=== PATIENT | female | born 1935 ===

== ENCOUNTER 2021-01-26 15:16 | Inpatient (IN) | payer MEDICARE ==
--- NOTE | 2021-01-26 17:35 | Emergency Department Report ---
ED General Adult HPI - General Chief complaint: Weakness Stated complaint: FAILURE TO THRIVE Time Seen by Provider: 01/26/21 17:11 Source: EMS Mode of arrival: Stretcher Limitations: Physical Limitation - History of Present Illness Initial comments: Patient presents to the emergency department via EMS from [facility] for evaluation for failure to thrive. Patient is nonverbal and is not able to provide any history. Per EMS they were called because the patient is no longer taking food or water p.o. They state that the family wanted the patient evaluated at the hospital. -: unknown Consistency: constant Improves with: none Worsens with: none Associated Symptoms: other (Not able to obtain due to the patient's status) Treatments Prior to Arrival: none - Related Data Allergies Allergy/AdvReac Type Severity Reaction Status Date / Time No Known Allergies Allergy Verified 01/26/21 16:32 ED Review of Systems ROS: Stated complaint: FAILURE TO THRIVE Other details as noted in HPI Comment: Unobtainable due to pts medical conditions ED Past Medical Hx - Past Medical History Previous Medical History?: Yes Additional medical history: failure to thrive - Social History Smoking Status: Never Smoker Substance Use Type: None ED Physical Exam - General Limitations: Physical Limitation General appearance: obtunded - Head Head exam: Present: atraumatic, normocephalic - Eye Eye exam: Absent: scleral icterus - ENT ENT exam: Present: mucous membranes dry - Neck Neck exam: Present: normal inspection - Respiratory Respiratory exam: Present: normal lung sounds bilaterally. Absent: respiratory distress - Cardiovascular Cardiovascular Exam: Present: regular rate, normal rhythm - GI/Abdominal GI/Abdominal exam: Present: soft. Absent: distended - Extremities Exam Extremities exam: Present: other (Contractures to the bilateral lower extremities) - Back Exam Back exam: Absent: paraspinal tenderness, vertebral tenderness, rash noted - Neurological Exam Neurological exam: Present: altered, other (Not able to completely assess due to the patient's condition) - Psychiatric Psychiatric exam: Present: other (Not able to assess due to the patient's condition) - Skin Skin exam: Present: other (Patient has 2 stage IV ulcers with one being to the sacrum and other located to the medial aspect of the right foot the latter decubitus ulcer has purulent drainage) ED Course Vital Signs 01/26/21 01/26/21 16:32 16:40 Temperature 98 F Pulse Rate 57 L Respiratory 16 Rate Blood Pressure 115/57 O2 Sat by Pulse 97 95 Oximetry ED Medical Decision Making - Radiology Data Radiology results: report reviewed - Medical Decision Making Spoke to the patient's physician who is Dr. Rafael Frazier MD. Patient was discussed in detail plans will be to obtain labs and have the patient admitted. The admitting physician will follow labs upon their completion and return. Patient has bilateral pneumonia on x-ray with bony lesions bilaterally to the humerus IV antibiotics initiated Covid test ordered patient will be admitted Critical care attestation.: If time is entered above; I have spent that time in minutes in the direct care of this critically ill patient, excluding procedure time. ED Disposition Clinical Impression: Weakness, Bilateral pneumonia, Lytic bone lesions on xray Disposition: ADMITTED INPATIENT Is pt being admited?: Yes Does the pt Need Aspirin: No Condition: Fair Instructions: Bacterial Pneumonia (ED)
--- NOTE | 2021-01-26 17:55 | XRay Report ---
CHEST 1 VIEW, 01/26/2021 5:29 PM CLINICAL INFORMATION/INDICATION: Cough COMPARISON: None. FINDINGS: SUPPORT DEVICES: None. HEART: The cardiac silhouette is normal in size. LUNGS/PLEURA: There are patchy bilateral pulmonary opacities. ADDITIONAL FINDINGS: Evaluation of bony structures demonstrates mixed lytic and sclerotic lesions wit hin the bilateral humeral heads, left greater than right. IMPRESSION: 1. Patchy bilateral pulmonary opacities which could suggest a developing atypical infectious process. 2. Mixed lytic and sclerotic lesion of both humeral head suggesting a neoplastic process. Multiple my eloma could have this appearance. Signer Name: Kristy Glover MD Signed: 01/26/2021 5:51 PM Workstation Name: [id number]
--- NOTE | 2021-01-26 18:07 | History and Physical Report ---
History of Present Illness Chief complaint: She is getting sick History of present illness: 85 YO Female [facility] Resident at [facility] with Vascular Dementia, Cerebral Atherosclerosis, Debility, Severe Malnutrition, Sacral Decubitus Ulcer present on admission presents to ED for evaluation. Patient has diminished cognition at the time my evaluation and is unable to provide history. Patient history provided by EMS staff, ED staff, [facility] facility staff, as well as patient daughter who was made available by telephone for interview. As per daughter she was notified by [facility] facility staff today and informed that the patient "was getting sick". The patient has experienced decreased responsiveness as well as increased weakness over the past 1 week with acute worsening of symptoms over the past 1 day. EMS was notified and upon arrival the patient was found to be in distress and was subsequently transported to [facility] for further care and evaluation of the aforementioned symptoms. The patient was seen and evaluated in the emergency department. All lab and imaging studies reviewed. Patient was found to have a pulse oximetry of 85% on room air which is consistent with acute hypoxemic respiratory failure. A chest x-ray revealed bilateral pneumonia. The patient was also found to have sepsis, acute kidney injury, as well as severe hypernatremia. The patient was admitted to medical floor and initiated on sepsis protocol, pneumonia protocol, as well as coronavirus protocol. No further history is obtainable. The patient has diminished cognition but has a positive gag reflex and is able to protect her airway without difficulty the time my evaluation. Advanced care planning conducted in ED. Past History Past Medical History: other (See HPI) Past Surgical History: No surgical history, Other (Reviewed) Social history: single. denies: smoking, alcohol abuse Family history: hypertension Medications and Allergies Allergies Allergy/AdvReac Type Severity Reaction Status Date / Time No Known Allergies Allergy Verified 01/26/21 16:32 Review of Systems ROS unobtainable: due to mental status Exam - Constitutional Vitals: Temp Pulse Resp BP Pulse Ox 98 F 57 L 16 115/57 95 01/26/21 16:32 01/26/21 16:32 01/26/21 16:32 01/26/21 16:32 01/26/21 16:40 General appearance: Present: mild distress - EENT ENT: hearing decreased, other - Neck Neck: Present: supple, normal ROM - Respiratory Respiratory effort: labored Respiratory: bilateral: diminished, rhonchi - Cardiovascular Rhythm: regular Heart Sounds: Present: S1 & S2 - Extremities Extremities: pulses symmetrical, No edema Extremity abnormal: ulceration Peripheral Pulses: abnormal (Capillary refill greater than 3.5 seconds) - Abdominal General gastrointestinal: Present: soft, non-tender, non-distended, normal bowel sounds Female genitourinary: Present: normal - Integumentary Integumentary: Present: clear, dry, clammy, decreased turgor - Musculoskeletal Musculoskeletal: generalized weakness - Psychiatric Psychiatric: no appropriate mood/affect, no intact judgment & insight, no memory intact - Neurologic Neurologic: CNII-XII intact, moves all extremities, no gait normal Results - Labs CBC & Chem 7: 01/26/21 17:55 01/26/21 17:55 Assessment and Plan - Patient Problems (1) Sepsis Current Visit: Yes Status: Acute Plan to address problem: Sepsis protocol: IV antibiotic therapy, IV fluid resuscitation therapy, serial lactic acid level, monitor urine output every shift, monitor fluid balance, maintain mean arterial pressure greater than equal 65, blood culture. (2) Suspected 2019 novel coronavirus infection Current Visit: Yes Status: Acute Plan to address problem: Coronavirus protocol: IV steroid therapy, IV antibiotic therapy, supplemental oxygen, pulse oximetry, contact precautions, isolation precautions, nebulizer therapy, vitamin C therapy, vitamin D therapy, zinc therapy, (3) Severe malnutrition Current Visit: Yes Status: Acute Plan to address problem: Dietary supplementation, supportive care. (4) Hypernatremia Current Visit: Yes Status: Acute Plan to address problem: IV fluid resuscitation therapy, BMP, repeat BMP in a.m. (5) Acute kidney injury (SUDHIR) with acute tubular necrosis (ATN) Current Visit: Yes Status: Acute Plan to address problem: BMP, IV fluid resuscitation therapy, repeat BMP in a.m. to monitor serum creatinine as well as GFR (6) Multiple myeloma Current Visit: Yes Status: Acute Qualifiers: Multiple myeloma remission status: unspecified Qualified Code(s): C90.00 - Multiple myeloma not having achieved remission Plan to address problem: Supportive care, lytic bone lesions on x-ray. Patient family informed. No intervention desired. (7) Bilateral pneumonia Current Visit: Yes Status: Acute Plan to address problem: Pneumonia protocol: Chest x-ray, CBC, CMP, supplemental oxygen, pulse oximetry, nebulizer therapy, blood culture. IV antibiotic therapy. (8) DVT prophylaxis Current Visit: Yes Status: Acute Plan to address problem: SCD to bilateral lower extremities while in bed (9) Advance care planning Current Visit: Yes Status: Acute Plan to address problem: Disease education conducted, care plan discussed, diagnosis discussed, poor prognosis discussed. Patient daughter Emy Chambers informed of patient prognosis. Patient is DNR. Patient daughter elects to have medical therapy at this time. Patient daughter made aware that patient may not tolerate therapy and current therapy may hasten patient demise. Patient daughter acknowledges understanding instructions patient daughter acknowledges understanding and agreement with current care plan. +30 minutes.
[2021-01-26] MEDS ORDERED: ACETAMINOPHEN 325 MG TAB PO PRN ×2 (18:10)
[2021-01-26] MEDS ORDERED: HYDROmorphone 1 MG/1 ML INJ IV PRN ×2 (18:10)
[2021-01-26] MEDS ORDERED: ALBUTEROL 2.5 MG/3 ML NEBU IH PRN (18:10)
[2021-01-26] MEDS ORDERED: ONDANSETRON 4 MG/2 ML INJ IV PRN (18:10)
[2021-01-26] MEDS ORDERED: SODIUM CHLORIDE 0.9% 1000 ML IV SOLN IV ONE (18:10)
[2021-01-26] MEDS ORDERED: oxyCODONE /ACETAMINOPHEN 5-325MG TAB PO PRN (18:10)
[2021-01-26 18:27] LABS: Albumin 2.6 g/dL (3.9-5); Calcium 7.9 mg/dL (8.4-10.2)
[2021-01-26 19:32] LABS: Hematocrit 24.3 % (30.3-42.9); Hemoglobin 7.9 gm/dl (10.1-14.3); Mean Corpuscular HGB Conc 33 % (30-34); Mean Corpuscular Volume 100 fl (79-97); Platelet Count 137 K/mm3 (140-440); Red Blood Count 2.44 M/mm3 (3.65-5.03)
[2021-01-26 19:34] LABS: Red Cell Distribution Width 24.4 % (13.2-15.2)
[2021-01-26] MEDS ORDERED: SODIUM CHLORIDE 0.9% 1000 ML 1,000 ML ONE (21:04)
[2021-01-26] MEDS: cefTRIAXone/NS 2 GM/100 ML 2 GM/100 ML BAG IV SCH (21:06)
[2021-01-26 21:53] LABS: Myelocytes # (Manual) 0.2 K/mm3; Total Cells Counted 100
[2021-01-26 21:54] LABS: Anisocytosis 2+; Schistocytes Rare; Tear Drop Cells Few
[2021-01-26 21:55] LABS: Platelet Estimate Consistent w Auto
[2021-01-26] MEDS: methylPREDNISolone Sod Succinate 40 MG/1 ML INJ IV SCH (23:05)
[2021-01-26] MEDS: AZITHROMYCIN/NS 500 MG/250 ML 500 MG/250 ML BAG IV SCH (23:06)
[2021-01-26] MEDS: ASCORBIC ACID 500 MG TAB PO SCH (23:16)
[2021-01-26] MEDS: ZINC SULFATE 220 MG CAP PO SCH (23:16)
[2021-01-27] MEDS: methylPREDNISolone Sod Succinate 40 MG/1 ML INJ IV SCH ×4 (05:16→23:16)
--- NOTE | 2021-01-27 09:19 | Progress Note ---
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 Patient has diminished cognition at the time my evaluation and is unable to provide history. Patient history provided by EMS staff, ED staff, assisted facility staff, as well as patient daughter who was made available by telephone for interview. As per daughter she was notified by assisted facility staff today and informed that the patient "was getting sick". The patient has experienced decreased responsiveness as well as increased weakness over the past 1 week with acute worsening of symptoms over the past 1 day. EMS was notified and upon arrival the patient was found to be in distress and was subsequently transported to [facility] for further care and evaluation of the aforementioned symptoms. The patient was seen and evaluated in the emergency department. All lab and imaging studies reviewed. Patient was found to have a pulse oximetry of 85% on room air which is consistent with acute hypoxemic respiratory failure. A chest x-ray revealed bilateral pneumonia. The patient was also found to have sepsis, acute kidney injury, as well as severe hypernatremia. The patient was admitted to medical floor and initiated on sepsis protocol, pneumonia protocol, as well as coronavirus protocol. No further history is obtainable. The patient has diminished cognition but has a positive gag reflex and is able to protect her airway without difficulty the time my evaluation. Advanced care planning conducted in ED. 01/27: Patient seen and examined, very lethargic, and appears deconditioned and dry. - ID and Nephrology consult - Gentle hydration while awaiting COVID testing. - Monitor Platelet level - Follow cultures. - Q2H turns (1) Sepsis Current Visit: Yes Status: Acute Plan to address problem: Sepsis protocol: IV antibiotic therapy, IV fluid resuscitation therapy, serial lactic acid level, monitor urine output every shift, monitor fluid balance, maintain mean arterial pressure greater than equal 65, blood culture. (2) Suspected 2019 novel coronavirus infection Current Visit: Yes Status: Acute Plan to address problem: Coronavirus protocol: IV steroid therapy, IV antibiotic therapy, supplemental oxygen, pulse oximetry, contact precautions, isolation precautions, nebulizer therapy, vitamin C therapy, vitamin D therapy, zinc therapy, (3) Severe malnutrition Current Visit: Yes Status: Acute Plan to address problem: Dietary supplementation, supportive care. (4) Hypernatremia Current Visit: Yes Status: Acute Plan to address problem: IV fluid resuscitation therapy, BMP, repeat BMP in a.m. (5) Acute kidney injury (SUDHIR) with acute tubular necrosis (ATN) Current Visit: Yes Status: Acute Plan to address problem: BMP, IV fluid resuscitation therapy, repeat BMP in a.m. to monitor serum creatinine as well as GFR (6) Multiple myeloma Current Visit: Yes Status: Acute Qualifiers: Multiple myeloma remission status: unspecified Qualified Code(s): C90.00 - Multiple myeloma not having achieved remission Plan to address problem: Supportive care, lytic bone lesions on x-ray. Patient family informed. No intervention desired. (7) Bilateral pneumonia Current Visit: Yes Status: Acute Plan to address problem: Pneumonia protocol: Chest x-ray, CBC, CMP, supplemental oxygen, pulse oximetry, nebulizer therapy, blood culture. IV antibiotic therapy. (8) Multiple Pressure ulcer, Sacral Decubitus Ulcer (9) Anemia (10)Lactic Acidosis (11)Hyperkalemia (12) Advance care planning Current Visit: Yes Status: Acute Plan to address problem: Disease education conducted, care plan discussed, diagnosis discussed, poor prognosis discussed. Patient daughter Emy Chambers informed of patient p janelle. Patient is DNR. Patient daughter elects to have medical therapy at this time. Patient daughter made aware that patient may not tolerate therapy and current therapy may hasten patient demise. Patient daughter acknowledges understanding instructions patient daughter acknowledges understanding and agreement with current care plan. +30 minutes. (13)DVT prophylaxis Current Visit: Yes Status: Acute Plan to address problem: SCD to bilateral lower extremities while in bed History Interval history: Patient seen and examined, very lethargic, weak, contracted, and with dry mucus membrane. Hospitalist Physical - Physical exam Narrative exam: General appearance: Present: mild distress, contracted - EENT ENT: hearing decreased, other, dry mucus membrane - Neck Neck: Present: supple, normal ROM - Respiratory Respiratory effort: labored Respiratory: bilateral: diminished, rhonchi - Cardiovascular Rhythm: regular Heart Sounds: Present: S1 & S2 - Extremities Extremities: pulses symmetrical, No edema Extremity abnormal: ulceration Peripheral Pulses: abnormal (Capillary refill greater than 3.5 seconds) - Abdominal General gastrointestinal: Present: soft, non-tender, non-distended, normal bowel sounds Female genitourinary: Present: normal - Integumentary Integumentary: Present: multiple ecchymotic injury, clear, dry, clammy, decreased turgor - Musculoskeletal Musculoskeletal: generalized weakness - Psychiatric Psychiatric: no appropriate mood/affect, no intact judgment & insight, no memory intact - Neurologic Neurologic: CNII-XII intact, moves all extremities, no gait normal - Constitutional Vitals: Temp Pulse Resp BP Pulse Ox 97.3 F L 62 16 104/58 99 01/27/21 05:05 01/27/21 05:05 01/27/21 05:05 01/27/21 05:05 01/27/21 05:05 General appearance: Present: mild distress Results - Labs CBC & Chem 7: 01/26/21 17:55 01/26/21 17:55 Labs: Laboratory Last Values WBC 17.2 K/mm3 (4.5-11.0) H 01/26/21 17:55 RBC 2.44 M/mm3 (3.65-5.03) L 01/26/21 17:55 Hgb 7.9 gm/dl (10.1-14.3) L 01/26/21 17:55 Hct 24.3 % (30.3-42.9) L 01/26/21 17:55 MCV 100 fl (79-97) H 01/26/21 17:55 MCH 33 pg (28-32) H 01/26/21 17:55 MCHC 33 % (30-34) 01/26/21 17:55 RDW 24.4 % (13.2-15.2) H 01/26/21 17:55 Plt Count 137 K/mm3 (140-440) L 01/26/21 17:55 Add Manual Diff Complete 01/26/21 17:55 Total Counted 100 01/26/21 17:55 Seg Neuts % (Manual) 75.0 % (40.0-70.0) H 01/26/21 17:55 Lymphocytes % (Manual) 19.0 % (13.4-35.0) 01/26/21 17:55 Monocytes % (Manual) 2.0 % (0.0-7.3) 01/26/21 17:55 Eosinophils % (Manual) 2.0 % (0.0-4.3) 01/26/21 17:55 Metamyelocytes % 1.0 % 01/26/21 17:55 Myelocytes % 1.0 % 01/26/21 17:55 Nucleated RBC % 2.0 % (0.0-0.9) H 01/26/21 17:55 Seg Neutrophils # Man 12.9 K/mm3 (1.8-7.7) H 01/26/21 17:55 Band Neutrophils # 0.0 K/mm3 01/26/21 17:55 Lymphocytes # (Manual) 3.3 K/mm3 (1.2-5.4) 01/26/21 17:55 Abs React Lymphs (Man) 0.0 K/mm3 01/26/21 17:55 Monocytes # (Manual) 0.3 K/mm3 (0.0-0.8) 01/26/21 17:55 Eosinophils # (Manual) 0.3 K/mm3 (0.0-0.4) 01/26/21 17:55 Basophils # (Manual) 0.0 K/mm3 (0.0-0.1) 01/26/21 17:55 Metamyelocytes # 0.2 K/mm3 01/26/21 17:55 Myelocytes # 0.2 K/mm3 01/26/21 17:55 Promyelocytes # 0.0 K/mm3 01/26/21 17:55 Blast Cells # 0.0 K/mm3 01/26/21 17:55 WBC Morphology Not Reportable 01/26/21 17:55 Hypersegmented Neuts Not Reportable 01/26/21 17:55 Hyposegmented Neuts Not Reportable 01/26/21 17:55 Hypogranular Neuts Not Reportable 01/26/21 17:55 Smudge Cells Not Reportable 01/26/21 17:55 Toxic Granulation Not Reportable 01/26/21 17:55 Toxic Vacuolation Not Reportable 01/26/21 17:55 Dohle Bodies Not Reportable 01/26/21 17:55 Pelger-Huet Anomaly Not Reportable 01/26/21 17:55 Francisco J Rods Not Reportable 01/26/21 17:55 Platelet Estimate Consistent w auto 01/26/21 17:55 Clumped Platelets Not Reportable 01/26/21 17:55 Plt Clumps, EDTA Not Reportable 01/26/21 17:55 Large Platelets Not Reportable 01/26/21 17:55 Giant Platelets Not Reportable 01/26/21 17:55 Platelet Satelliting Not Reportable 01/26/21 17:55 Plt Morphology Comment Not Reportable 01/26/21 17:55 RBC Morphology Not Reportable 01/26/21 17:55 Dimorphic RBCs Not Reportable 01/26/21 17:55 Polychromasia Not Reportable 01/26/21 17:55 Hypochromasia Not Reportable 01/26/21 17:55 Poikilocytosis Not Reportable 01/26/21 17:55 Anisocytosis 2+ 01/26/21 17:55 Microcytosis Not Reportable 01/26/21 17:55 Macrocytosis Not Reportable 01/26/21 17:55 Spherocytes Not Reportable 01/26/21 17:55 Pappenheimer Bodies Not Reportable 01/26/21 17:55 Sickle Cells Not Reportable 01/26/21 17:55 Target Cells Not Reportable 01/26/21 17:55 Tear Drop Cells Few 01/26/21 17:55 Ovalocytes Not Reportable 01/26/21 17:55 Helmet Cells Not Reportable 01/26/21 17:55 [place] Bodies Not Reportable 01/26/21 17:55 [place] Rings Not Reportable 01/26/21 17:55 [place] Cells Not Reportable 01/26/21 17:55 Bite Cells Not Reportable 01/26/21 17:55 Crenated Cell Not Reportable 01/26/21 17:55 Elliptocytes Not Reportable 01/26/21 17:55 Acanthocytes (Spur) Not Reportable 01/26/21 17:55 Rouleaux Not Reportable 01/26/21 17:55 Hemoglobin C Crystals Not Reportable 01/26/21 17:55 Schistocytes Rare 01/26/21 17:55 Malaria parasites Not Reportable 01/26/21 17:55 Garry Bodies Not Reportable 01/26/21 17:55 Hem Pathologist Commnt No 01/26/21 17:55 Sodium 152 mmol/L (137-145) H 01/26/21 17:55 Potassium 5.8 mmol/L (3.6-5.0) H 01/26/21 17:55 Chloride 121.5 mmol/L (98-107) H 01/26/21 17:55 Carbon Dioxide 24 mmol/L (22-30) 01/26/21 17:55 Anion Gap 12 mmol/L 01/26/21 17:55 BUN 38 mg/dL (7-17) H 01/26/21 17:55 Creatinine 1.5 mg/dL (0.6-1.2) H 01/26/21 17:55 Estimated GFR 33 ml/min 01/26/21 17:55 BUN/Creatinine Ratio 25 % 01/26/21 17:55 Glucose 58 mg/dL (65-100) L 01/26/21 17:55 Lactic Acid 1.20 mmol/L (0.7-2.0) 01/26/21 21:17 Calcium 7.9 mg/dL (8.4-10.2) L 01/26/21 17:55 Total Bilirubin 0.40 mg/dL (0.1-1.2) 01/26/21 17:55 AST 18 units/L (5-40) 01/26/21 17:55 ALT 14 units/L (7-56) 01/26/21 17:55 Alkaline Phosphatase 175 units/L (35-129) H 01/26/21 17:55 Total Protein 5.6 g/dL (6.3-8.2) L 01/26/21 17:55 Albumin 2.6 g/dL (3.9-5) L 01/26/21 17:55 Albumin/Globulin Ratio 0.9 % 01/26/21 17:55 Blood Type O POSITIVE 01/26/21 19:56 Antibody Screen Negative 01/26/21 19:56 Microbiology: Microbiology 01/26/21 18:28 Peripheral/Venous Blood Culture - Preliminary Culture in Progress 01/26/21 18:20 Peripheral/Venous Blood Culture - Preliminary Culture in Progress Sorto/IV: Voiding Method Incontinent Active Medications - Current Medications Current Medications: Generic Name Dose Route Start Last Admin Trade Name Freq PRN Reason Stop Dose Admin Acetaminophen 650 mg 01/26/21 18:10 Acetaminophen 325 Mg Tab PO Q4H PRN Pain MILD(1-3)/Fever >100.5/LUCAS Albuterol 2.5 mg 01/26/21 18:10 Albuterol 2.5 Mg/3 Ml Nebu IH Q4HRT PRN Shortness Of Breath Ascorbic Acid 500 mg 01/26/21 22:00 01/26/21 23:16 Ascorbic Acid 500 Mg Tab PO Not Given BID VINOD Cholecalciferol 1,000 unit 01/27/21 10:00 Cholecalciferol (Vit D3) 1000 Unit (25 Mcg) Tab PO QDAY VINOD Hydromorphone HCl 0.25 mg 01/26/21 18:10 Hydromorphone 1 Mg/1 Ml Inj IV Q4H PRN Pain, Moderate (4-6) Hydromorphone HCl 0.5 mg 01/26/21 18:10 Hydromorphone 1 Mg/1 Ml Inj IV Q24H PRN Pain , Severe (7-10) Ceftriaxone Sodium 2 gm in 100 mls @ 200 mls/hr 01/26/21 20:00 01/26/21 21:06 Rocephin/Ns 2 Gm/100 Ml IV 01/30/21 20:29 200 mls/hr Q24H VINOD Administration Protocol Azithromycin 500 mg in 250 mls @ 250 mls/hr 01/26/21 20:00 01/26/21 23:06 Zithromax/Ns IV 01/30/21 20:59 250 mls/hr Q24H VINOD Administration Protocol Methylprednisolone Sodium Succinate 40 mg 01/26/21 22:00 01/27/21 05:16 Methylprednisolone Sod Succinate 40 Mg/1 Ml Inj IV 40 mg Q8H VINOD Administration Ondansetron HCl 4 mg 01/26/21 18:10 Ondansetron 4 Mg/2 Ml Inj IV Q8H PRN Nausea And Vomiting Oxycodone/Acetaminophen 1 tab 01/26/21 18:10 Oxycodone /Acetaminophen 5-325mg Tab PO Q12H PRN Pain, Moderate (4-6) Sodium Chloride 10 ml 01/26/21 22:00 01/26/21 23:18 Sodium Chloride 0.9% 10 Ml Flush Syringe IV 10 ml BID VINOD Administration Sodium Chloride 10 ml 01/26/21 18:10 Sodium Chloride 0.9% 10 Ml Flush Syringe IV PRN PRN LINE FLUSH Zinc Sulfate 220 mg 01/26/21 22:00 01/26/21 23:16 Zinc Sulfate 220 Mg Cap PO Not Given BID VINOD
[2021-01-27] MEDS: ASCORBIC ACID 500 MG TAB PO SCH ×2 (10:00→23:16)
[2021-01-27] MEDS: CHOLECALCIFEROL (VIT D3) 1000 UNIT (25 mcg) TAB PO SCH (10:00)
[2021-01-27] MEDS ORDERED: SODIUM BICARBONATE 325 MG TAB FEEDTUBE PRN (11:00)
[2021-01-27] MEDS ORDERED: LIPASE 10,500/PROTEASE 25,000/AMYLASE 43,750 (UNITS) DR CAP FEEDTUBE PRN (11:00)
[2021-01-27] MEDS ORDERED: SIMPLE SYRUP 15 ML FEEDTUBE PRN (11:00)
[2021-01-27] MEDS ORDERED: SODIUM POLYSTYRENE 15 GM/60 ML ORAL LIQD PO ONE (14:22)
--- NOTE | 2021-01-27 14:25 | Consultation ---
History of Present Illness - Reason for Consult Consult date: 01/27/21 acute renal failure, hypernatremia - History of Present Illness Mrs. Elias is an 85yo with vascular dementia, multiple myeloma who presented from SNF due to failure to thrive. Per EMS they were called because the patient was no longer taking food or water p.o. Family wanted the patient evaluated at the hospital Over the past week, patient reportedly was noted to become less responsive w/ increased weakness. In the ED, patient was noted to have SaO2 85%. CXR notable for bilateral infiltrates concerning for PNA. Labs notabe for WBC 17.2, K 5.8, Creatinine 1.5mg.dL. Nephrology consultation requested for management of SUDHIR, hyperkalemia Past History Past Medical History: other (See HPI) Past Surgical History: No surgical history, Other (Reviewed) Social history: single. denies: smoking, alcohol abuse Family history: hypertension Medications and Allergies Allergies Allergy/AdvReac Type Severity Reaction Status Date / Time No Known Allergies Allergy Verified 01/26/21 16:32 Active Meds: Active Medications Acetaminophen (Acetaminophen 325 Mg Tab) 650 mg PO Q4H PRN PRN Reason: Pain MILD(1-3)/Fever >100.5/LUCAS Albuterol (Albuterol 2.5 Mg/3 Ml Nebu) 2.5 mg IH Q4HRT PRN PRN Reason: Shortness Of Breath Lipase/Protease/Amylase (Lipase 10,500/Protease 25,000/Amylase 43,750 (Units) Dr Joseph) 1 each FEEDTUBE PRN PRN PRN Reason: For Clogged Feeding Tube Ascorbic Acid (Ascorbic Acid 500 Mg Tab) 500 mg PO BID [facility] Last Admin: 01/26/21 23:16 Dose: Not Given Documented by: Cholecalciferol (Cholecalciferol (Vit D3) 1000 Unit (25 Mcg) Tab) 1,000 unit PO QDAY [facility] Hydromorphone HCl (Hydromorphone 1 Mg/1 Ml Inj) 0.25 mg IV Q4H PRN PRN Reason: Pain, Moderate (4-6) Hydromorphone HCl (Hydromorphone 1 Mg/1 Ml Inj) 0.5 mg IV Q24H PRN PRN Reason: Pain , Severe (7-10) Ceftriaxone Sodium (Rocephin/Ns 2 Gm/100 Ml) 2 gm in 100 mls @ 200 mls/hr IV Q24H [facility]; Protocol Stop: 01/30/21 20:29 Last Admin: 01/26/21 21:06 Dose: 200 mls/hr Documented by: Azithromycin (Zithromax/Ns) 500 mg in 250 mls @ 250 mls/hr IV Q24H [facility]; Protocol Stop: 01/30/21 20:59 Last Admin: 01/26/21 23:06 Dose: 250 mls/hr Documented by: Sodium Chloride (Nacl 0.45% 1000 Ml) 1,000 mls @ 75 mls/hr IV DIRECT [facility] Methylprednisolone Sodium Succinate (Methylprednisolone Sod Succinate 40 Mg/1 Ml Inj) 40 mg IV Q8H [facility] Last Admin: 01/27/21 12:35 Dose: 40 mg Documented by: Ondansetron HCl (Ondansetron 4 Mg/2 Ml Inj) 4 mg IV Q8H PRN PRN Reason: Nausea And Vomiting Oxycodone/Acetaminophen (Oxycodone /Acetaminophen 5-325mg Tab) 1 tab PO Q12H PRN PRN Reason: Pain, Moderate (4-6) Simple Syrup (Simple Syrup 15 Ml) 15 ml FEEDTUBE PRN PRN PRN Reason: Hypoglycemia Simple Syrup (Simple Syrup 15 Ml) 30 ml FEEDTUBE PRN PRN PRN Reason: Hypoglycemia Sodium Bicarbonate (Sodium Bicarbonate 325 Mg Tab) 325 mg FEEDTUBE PRN PRN PRN Reason: For Clogged Feeding Tube Sodium Chloride (Sodium Chloride 0.9% 10 Ml Flush Syringe) 10 ml IV BID [facility] Last Admin: 01/27/21 12:36 Dose: 10 ml Documented by: Sodium Chloride (Sodium Chloride 0.9% 10 Ml Flush Syringe) 10 ml IV PRN PRN PRN Reason: LINE FLUSH Sodium Polystyrene Sulfonate (Sodium Polystyrene 15 Gm/60 Ml Oral Liqd) 30 gm PO ONCE ONE Stop: 01/27/21 14:23 Zinc Sulfate (Zinc Sulfate 220 Mg Cap) 220 mg PO BID [facility] Last Admin: 01/26/21 23:16 Dose: Not Given Documented by: Review of Systems All systems: negative Exam - Vital Signs Vital signs: Vital Signs Temp Pulse Resp BP Pulse Ox 98 F 57 L 16 115/57 97 01/26/21 16:32 01/26/21 16:32 01/26/21 16:32 01/26/21 16:32 01/26/21 16:32 - General Appearance General appearance: frail EENT: ATNC Respiratory: Clear to Ascultation Heart: regular, S1S2 Gastrointestinal: Present: normal. Absent: tenderness, distended Integumentary: warm and dry Neurologic: other (nonverbal) Results - Lab Results 01/27/21 18:10 01/27/21 18:10 Most recent lab results Calcium 7.9 mg/dL (8.4-10.2) L 01/26/21 17:55 Assessment and Plan Impression: * Acute kidney injury secondary to prerenal azotemia due to dehydration * Sepsis * Hyperkalemia * Hypernatremia * Decubitus ulcer * Multiple myeloma Plan: * STAT BMP ordered * Medical management of hyperkalemia - kayexelate via DHT ordered * Start 1/2 NS 75ml/min * Abx per ID * Dose medications for renal function * Avoid potential nephrotoxins * Strict I/O
[2021-01-27] MEDS ORDERED: SODIUM CHLORIDE 0.45% 1000 ML 1,000 ML IV SCH (15:00)
--- NOTE | 2021-01-27 15:49 | Consultation ---
History of Present Illness - Reason for Consult Consult date: 01/27/21 sepsis - History of Present Illness 85-year-old female with history of dementia, cementation, sacral decubitus ulcer, admitted on 01/26/2021 secondary to a week history of decreased responsiveness and generalized weakness associated with shortness of breath. On arrival, temperature 98, HR 57, RR 18, BP 150/57. Initial WBC 17.2. Hemoglobin 7.9. Platelets 137. Lactate 2.1. K5.8. Creatinine 1.5. Chest x- ray with patchy bilateral airspace disease. Noted lytic and sclerotic lesions in the humeral heads. SARS-CoV-2 PCR negative. Blood culture 01/26/2021 no growth today. Review of Systems: Unable to obtain Past History Past Medical History: other (See HPI) Past Surgical History: No surgical history, Other (Reviewed) Social history: single. denies: smoking, alcohol abuse Family history: hypertension Medications and Allergies Allergies Allergy/AdvReac Type Severity Reaction Status Date / Time No Known Allergies Allergy Verified 01/26/21 16:32 Active Meds: Active Medications Acetaminophen (Acetaminophen 325 Mg Tab) 650 mg PO Q4H PRN PRN Reason: Pain MILD(1-3)/Fever >100.5/LUCAS Albuterol (Albuterol 2.5 Mg/3 Ml Nebu) 2.5 mg IH Q4HRT PRN PRN Reason: Shortness Of Breath Lipase/Protease/Amylase (Lipase 10,500/Protease 25,000/Amylase 43,750 (Units) Dr Joseph) 1 each FEEDTUBE PRN PRN PRN Reason: For Clogged Feeding Tube Ascorbic Acid (Ascorbic Acid 500 Mg Tab) 500 mg PO BID [facility] Last Admin: 01/26/21 23:16 Dose: Not Given Documented by: Cholecalciferol (Cholecalciferol (Vit D3) 1000 Unit (25 Mcg) Tab) 1,000 unit PO QDAY [facility] Hydromorphone HCl (Hydromorphone 1 Mg/1 Ml Inj) 0.25 mg IV Q4H PRN PRN Reason: Pain, Moderate (4-6) Hydromorphone HCl (Hydromorphone 1 Mg/1 Ml Inj) 0.5 mg IV Q24H PRN PRN Reason: Pain , Severe (7-10) Ceftriaxone Sodium (Rocephin/Ns 2 Gm/100 Ml) 2 gm in 100 mls @ 200 mls/hr IV Q24H [facility]; Protocol Stop: 01/30/21 20:29 Last Admin: 01/26/21 21:06 Dose: 200 mls/hr Documented by: Azithromycin (Zithromax/Ns) 500 mg in 250 mls @ 250 mls/hr IV Q24H [facility]; Protocol Stop: 01/30/21 20:59 Last Admin: 01/26/21 23:06 Dose: 250 mls/hr Documented by: Sodium Chloride (Nacl 0.45% 1000 Ml) 1,000 mls @ 75 mls/hr IV DIRECT [facility] Methylprednisolone Sodium Succinate (Methylprednisolone Sod Succinate 40 Mg/1 Ml Inj) 40 mg IV Q8H [facility] Last Admin: 01/27/21 14:00 Dose: Not Given Documented by: Ondansetron HCl (Ondansetron 4 Mg/2 Ml Inj) 4 mg IV Q8H PRN PRN Reason: Nausea And Vomiting Oxycodone/Acetaminophen (Oxycodone /Acetaminophen 5-325mg Tab) 1 tab PO Q12H PRN PRN Reason: Pain, Moderate (4-6) Simple Syrup (Simple Syrup 15 Ml) 15 ml FEEDTUBE PRN PRN PRN Reason: Hypoglycemia Simple Syrup (Simple Syrup 15 Ml) 30 ml FEEDTUBE PRN PRN PRN Reason: Hypoglycemia Sodium Bicarbonate (Sodium Bicarbonate 325 Mg Tab) 325 mg FEEDTUBE PRN PRN PRN Reason: For Clogged Feeding Tube Sodium Chloride (Sodium Chloride 0.9% 10 Ml Flush Syringe) 10 ml IV BID [facility] Last Admin: 01/27/21 12:36 Dose: 10 ml Documented by: Sodium Chloride (Sodium Chloride 0.9% 10 Ml Flush Syringe) 10 ml IV PRN PRN PRN Reason: LINE FLUSH Zinc Sulfate (Zinc Sulfate 220 Mg Cap) 220 mg PO BID [facility] Last Admin: 01/26/21 23:16 Dose: Not Given Documented by: Physical Examination - Physical Exam Narrative exam: Patient was on isolation to rule out COVID-19 by the time of encounter - Constitutional Vitals: Vital Signs Temp Pulse Resp BP Pulse Ox 97.3 F L 62 16 104/58 93 01/27/21 05:05 01/27/21 05:05 01/27/21 05:05 01/27/21 05:05 01/27/21 10:00 Temperature -Last 24 Hours Temperature 97.3 F Temperature 97.2 F Temperature 98 F Temperature 98 F Results - Labs CBC & Chem 7: 01/27/21 18:10 01/26/21 17:55 Labs: Abnormal lab results 01/26/21 01/26/21 01/26/21 Range/Units 17:55 17:55 17:55 WBC 17.2 H (4.5-11.0) K/mm3 RBC 2.44 L (3.65-5.03) M/mm3 Hgb 7.9 L (10.1-14.3) gm/dl Hct 24.3 L (30.3-42.9) % MCV 100 H (79-97) fl MCH 33 H (28-32) pg RDW 24.4 H (13.2-15.2) % Plt Count 137 L (140-440) K/mm3 Seg Neuts % (Manual) 75.0 H (40.0-70.0) % Nucleated RBC % 2.0 H (0.0-0.9) % Seg Neutrophils # Man 12.9 H (1.8-7.7) K/mm3 Sodium 152 H (137-145) mmol/L Potassium 5.8 H (3.6-5.0) mmol/L Chloride 121.5 H (98-107) mmol/L BUN 38 H (7-17) mg/dL Creatinine 1.5 H (0.6-1.2) mg/dL Glucose 58 L (65-100) mg/dL Lactic Acid 2.10 H* (0.7-2.0) mmol/L Calcium 7.9 L (8.4-10.2) mg/dL Alkaline Phosphatase 175 H (35-129) units/L Total Protein 5.6 L (6.3-8.2) g/dL Albumin 2.6 L (3.9-5) g/dL Assessment and Plan Cultures: Blood cultures no growth today Assessment: 85-year-old female with history of dementia, cementation, sacral decubitus ulcer, admitted on 01/26/2021 secondary to a week history of decreased responsiveness and generalized weakness associated with shortness of breath: #Sepsis: Present on admission with leukocytosis, elevated lactate, elevated creatinine; likely due to bilateral pneumonia. #Bilateral pneumonia: SARS-CoV-2 PCR negative. #SUDHIR: Renally adjust antibiotics. #Bone lesions: ?MM Recommendations: Continue ceftriaxone and azithromycin Follow blood cultures Will follow. Ariana López MD Infectious Diseases Director Biostatistics [facility] M [phone] O [phone]
--- NOTE | 2021-01-27 16:59 | XRay Report ---
ABDOMEN 1 VIEW 01/27/2021 3:24 PM INDICATION / CLINICAL INFORMATION: dobhoff placement. COMPARISON: Chest radiograph dated 01/26/2021 FINDINGS: TUBES / LINES: Feeding tube is in the right lung. BOWEL GAS PATTERN: No significant abnormality. FREE AIR / EXTRALUMINAL GAS: None. ADDITIONAL FINDINGS: There is a mass lesion in the right lung. There is extensive sclerotic change no mellissa in the imaged skeleton. IMPRESSION: 1. Feeding tube is in the right lung. Note: Note from technologist indicated that the nurse was present at the time the radiograph was obta ined. Note indicates the tube was removed. Signer Name: Andrés Craft MD Signed: 01/27/2021 4:54 PM Workstation Name: [id number]
[2021-01-27] MEDS ORDERED: D5W/0.9% NACL 1,000 ML IV SCH (18:00)
[2021-01-27 18:18] LABS: Hematocrit 26.8 % (30.3-42.9); Hemoglobin 8.6 gm/dl (10.1-14.3); Mean Corpuscular HGB Conc 32 % (30-34); Mean Corpuscular Volume 99 fl (79-97); Platelet Count 151 K/mm3 (140-440)
[2021-01-27 18:22] LABS: Red Cell Distribution Width 24.8 % (13.2-15.2)
[2021-01-27 18:38] LABS: Calcium 7.8 mg/dL (8.4-10.2)
[2021-01-27] MEDS: ZINC SULFATE 220 MG CAP PO SCH ×2 (18:57→23:16)
[2021-01-27 22:37] LABS: Anisocytosis 1+; Band Neutrophils # (Manual) 0.2 K/mm3; Basophils % (Manual) 0.5 % (0.0-1.8); Eosinophils % (Manual) 0.5 % (0.0-4.3); Total Cells Counted 200
[2021-01-27 22:38] LABS: Platelet Estimate Consistent w Auto
[2021-01-27] MEDS: cefTRIAXone/NS 2 GM/100 ML 2 GM/100 ML BAG IV SCH (23:17)
[2021-01-27] MEDS: AZITHROMYCIN/NS 500 MG/250 ML 500 MG/250 ML BAG IV SCH (23:28)
[2021-01-28] MEDS: methylPREDNISolone Sod Succinate 40 MG/1 ML INJ IV SCH ×3 (05:48→22:32)
--- NOTE | 2021-01-28 10:43 | Progress Note ---
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 Patient has diminished cognition at the time my evaluation and is unable to provide history. Patient history provided by EMS staff, ED staff, senior living facility staff, as well as patient daughter who was made available by telephone for interview. As per daughter she was notified by senior living facility staff today and informed that the patient "was getting sick". The patient has experienced decreased responsiveness as well as increased weakness over the past 1 week with acute worsening of symptoms over the past 1 day. EMS was notified and upon arrival the patient was found to be in distress and was subsequently transported to [facility] for further care and evaluation of the aforementioned symptoms. The patient was seen and evaluated in the emergency department. All lab and imaging studies reviewed. Patient was found to have a pulse oximetry of 85% on room air which is consistent with acute hypoxemic respiratory failure. A chest x-ray revealed bilateral pneumonia. The patient was also found to have sepsis, acute kidney injury, as well as severe hypernatremia. The patient was admitted to medical floor and initiated on sepsis protocol, pneumonia protocol, as well as coronavirus protocol. No further history is obtainable. The patient has diminished cognition but has a positive gag reflex and is able to protect her airway without difficulty the time my evaluation. Advanced care planning conducted in ED. 01/27: Patient seen and examined, very lethargic, and appears deconditioned and dry. - ID and Nephrology consult - Gentle hydration while awaiting COVID testing. - Monitor Platelet level - Follow cultures. - Q2H turns 01/28: Patient seen and examined unable to get Dobbhoff yesterday the nurse y esterday said that he was able to tolerate pured diet as recommended by speech therapist. Although today's nurse reports that the patient is not tolerating so we will try the Dobbhoff again. We will continue to reevaluate and on my examination he actually opens her mouth and responds to some questions recommended we try assistance with feeding again today. Renal function showing some improvement ID input appreciated continue antibiotics at this time. Leukocytosis still worse we will recheck. Assessment: 85-year-old female with history of dementia, cementation, sacral decubitus ulcer, admitted on 01/26/2021 secondary to a week history of decreased responsiveness and generalized weakness associated with shortness of breath: (1) Sepsis Current Visit: Yes Status: Acute Plan to address problem: Sepsis protocol: IV antibiotic therapy, IV fluid resuscitation therapy, serial lactic acid level, monitor urine output every shift, monitor fluid balance, maintain mean arterial pressure greater than equal 65, blood culture. (2) Suspected 2019 novel coronavirus infection Current Visit: Yes Status: Acute Plan to address problem: Coronavirus protocol: IV steroid therapy, IV antibiotic therapy, supplemental oxygen, pulse oximetry, contact precautions, isolation precautions, nebulizer therapy, vitamin C therapy, vitamin D therapy, zinc therapy, (3) Severe malnutrition Current Visit: Yes Status: Acute Plan to address problem: Dietary supplementation, supportive care. (4) Hypernatremia Current Visit: Yes Status: Acute Plan to address problem: IV fluid resuscitation therapy, BMP, repeat BMP in a.m. (5) Acute kidney injury (SUDHIR) with acute tubular necrosis (ATN) Current Visit: Yes Status: Acute Plan to address problem: BMP, IV fluid resuscitation therapy, repeat BMP in a.m. to monitor serum creatinine as well as GFR (6) Multiple myeloma Current Visit: Yes Status: Acute Qualifiers: Multiple myeloma remission status: unspecified Qualified Code(s): C90.00 - Multiple myeloma not having achieved remission Plan to address problem: Supportive care, lytic bone lesions on x-ray. Patient family informed. No intervention desired. (7) Bilateral pneumonia Current Visit: Yes Status: Acute Plan to address problem: Pneumonia protocol: Chest x-ray, CBC, CMP, supplemental oxygen, pulse oximetry, nebulizer therapy, blood culture. IV antibiotic therapy. (8) Multiple Pressure ulcer, Sacral Decubitus Ulcer (9) Anemia (10)Lactic Acidosis (11)Hyperkalemia (12) Advance care planning Current Visit: Yes Status: Acute Plan to address problem: Disease education conducted, care plan discussed, diagnosis discussed, poor prognosis discussed. Patient daughter Emy Chamebrs informed of patient prognosis. Patient is DNR. Patient daughter elects to have medical therapy at this time. Patient daughter made aware that patient may not tolerate therapy and current therapy may hasten patient demise. Patient daughter acknowledges understanding instructions patient daughter acknowledges understanding and agreement with current care plan. +30 minutes. (13)DVT prophylaxis Current Visit: Yes Status: Acute Plan to address problem: SCD to bilateral lower extremities while in bed History Interval history: Patient seen and examined, very lethargic, weak, contracted, and with dry mucus membrane although improved compared to yesterday. Hospitalist Physical - Physical exam Narrative exam: General appearance: Present: mild distress, contracted - EENT ENT: hearing decreased, other, dry mucus membrane - Neck Neck: Present: supple, normal ROM - Respiratory Respiratory effort: labored Respiratory: bilateral: diminished, rhonchi - Cardiovascular Rhythm: regular Heart Sounds: Present: S1 & S2 - Extremities Extremities: pulses symmetrical, No edema Extremity abnormal: ulceration Peripheral Pulses: abnormal (Capillary refill greater than 3.5 seconds) - Abdominal General gastrointestinal: Present: soft, non-tender, non-distended, normal bowel sounds Female genitourinary: Present: normal - Integumentary Integumentary: Present: multiple ecchymotic injury, clear, dry, clammy, decreased turgor - Musculoskeletal Musculoskeletal: generalized weakness - Psychiatric Psychiatric: no appropriate mood/affect, no intact judgment & insight, no memory intact - Neurologic Neurologic: CNII-XII intact, moves all extremities, no gait normal - Constitutional Vitals: Temp Pulse Resp BP Pulse Ox 97.3 F L 63 18 97/52 94 01/27/21 11:41 01/27/21 21:59 01/27/21 21:59 01/27/21 21:59 01/28/21 09:55 General appearance: Present: mild distress Results - Labs CBC & Chem 7: 01/27/21 18:10 01/27/21 18:10 Labs: Laboratory Last Values WBC 21.3 K/mm3 (4.5-11.0) H 01/27/21 18:10 RBC 2.70 M/mm3 (3.65-5.03) L 01/27/21 18:10 Hgb 8.6 gm/dl (10.1-14.3) L 01/27/21 18:10 Hct 26.8 % (30.3-42.9) L 01/27/21 18:10 MCV 99 fl (79-97) H 01/27/21 18:10 MCH 32 pg (28-32) 01/27/21 18:10 MCHC 32 % (30-34) 01/27/21 18:10 RDW 24.8 % (13.2-15.2) H 01/27/21 18:10 Plt Count 151 K/mm3 (140-440) 01/27/21 18:10 Lymph # (Auto) Homoeopath 01/27/21 18:10 Add Manual Diff Complete 01/27/21 18:10 Total Counted 200 01/27/21 18:10 Seg Neuts % (Manual) 76.5 % (40.0-70.0) H 01/27/21 18:10 Band Neutrophils % 1.0 % 01/27/21 18:10 Lymphocytes % (Manual) 17.0 % (13.4-35.0) 01/27/21 18:10 Reactive Lymphs % (Man) 0.5 % 01/27/21 18:10 Monocytes % (Manual) 4.0 % (0.0-7.3) 01/27/21 18:10 Eosinophils % (Manual) 0.5 % (0.0-4.3) 01/27/21 18:10 Basophils % (Manual) 0.5 % (0.0-1.8) 01/27/21 18:10 Metamyelocytes % 1.0 % 01/26/21 17:55 Myelocytes % 1.0 % 01/26/21 17:55 Nucleated RBC % 1.0 % (0.0-0.9) H 01/27/21 18:10 Seg Neutrophils # Man 16.3 K/mm3 (1.8-7.7) H 01/27/21 18:10 Band Neutrophils # 0.2 K/mm3 01/27/21 18:10 Lymphocytes # (Manual) 3.6 K/mm3 (1.2-5.4) 01/27/21 18:10 Abs React Lymphs (Man) 0.1 K/mm3 01/27/21 18:10 Monocytes # (Manual) 0.9 K/mm3 (0.0-0.8) H 01/27/21 18:10 Eosinophils # (Manual) 0.1 K/mm3 (0.0-0.4) 01/27/21 18:10 Basophils # (Manual) 0.1 K/mm3 (0.0-0.1) 01/27/21 18:10 Metamyelocytes # 0.0 K/mm3 01/27/21 18:10 Myelocytes # 0.0 K/mm3 01/27/21 18:10 Promyelocytes # 0.0 K/mm3 01/27/21 18:10 Blast Cells # 0.0 K/mm3 01/27/21 18:10 WBC Morphology Not Reportable 01/27/21 18:10 Hypersegmented Neuts Not Reportable 01/27/21 18:10 Hyposegmented Neuts Not Reportable 01/27/21 18:10 Hypogranular Neuts Not Reportable 01/27/21 18:10 Smudge Cells Not Reportable 01/27/21 18:10 Toxic Granulation Not Reportable 01/27/21 18:10 Toxic Vacuolation Not Reportable 01/27/21 18:10 Dohle Bodies Not Reportable 01/27/21 18:10 Pelger-Huet Anomaly Not Reportable 01/27/21 18:10 Francisco J Rods Not Reportable 01/27/21 18:10 Platelet Estimate Consistent w auto 01/27/21 18:10 Clumped Platelets Not Reportable 01/27/21 18:10 Plt Clumps, EDTA Not Reportable 01/27/21 18:10 Large Platelets Not Reportable 01/27/21 18:10 Giant Platelets Not Reportable 01/27/21 18:10 Platelet Satelliting Not Reportable 01/27/21 18:10 Plt Morphology Comment Not Reportable 01/27/21 18:10 RBC Morphology Not Reportable 01/27/21 18:10 Dimorphic RBCs Not Reportable 01/27/21 18:10 Polychromasia Not Reportable 01/27/21 18:10 Hypochromasia Not Reportable 01/27/21 18:10 Poikilocytosis Not Reportable 01/27/21 18:10 Anisocytosis 1+ 01/27/21 18:10 Microcytosis Not Reportable 01/27/21 18:10 Macrocytosis Not Reportable 01/27/21 18:10 Spherocytes Not Reportable 01/27/21 18:10 Pappenheimer Bodies Not Reportable 01/27/21 18:10 Sickle Cells Not Reportable 01/27/21 18:10 Target Cells Not Reportable 01/27/21 18:10 Tear Drop Cells Not Reportable 01/27/21 18:10 Ovalocytes Not Reportable 01/27/21 18:10 Helmet Cells Not Reportable 01/27/21 18:10 [place] Bodies Not Reportable 01/27/21 18:10 [place] Rings Not Reportable 01/27/21 18:10 [place] Cells Not Reportable 01/27/21 18:10 Bite Cells Not Reportable 01/27/21 18:10 Crenated Cell Not Reportable 01/27/21 18:10 Elliptocytes Not Reportable 01/27/21 18:10 Acanthocytes (Spur) Not Reportable 01/27/21 18:10 Rouleaux Not Reportable 01/27/21 18:10 Hemoglobin C Crystals Not Reportable 01/27/21 18:10 Schistocytes Not Reportable 01/27/21 18:10 Malaria parasites Not Reportable 01/27/21 18:10 Garry Bodies Not Reportable 01/27/21 18:10 Hem Pathologist Commnt No 01/27/21 18:10 Sodium 152 mmol/L (137-145) H 01/27/21 18:10 Potassium 4.4 mmol/L (3.6-5.0) D 01/27/21 18:10 Chloride 121.0 mmol/L (98-107) H 01/27/21 18:10 Carbon Dioxide 23 mmol/L (22-30) 01/27/21 18:10 Anion Gap 12 mmol/L 01/27/21 18:10 BUN 56 mg/dL (7-17) H 01/27/21 18:10 Creatinine 1.4 mg/dL (0.6-1.2) H 01/27/21 18:10 Estimated GFR 36 ml/min 01/27/21 18:10 BUN/Creatinine Ratio 40 % 01/27/21 18:10 Glucose 76 mg/dL (65-100) 01/27/21 18:10 Lactic Acid 1.30 mmol/L (0.7-2.0) 01/27/21 18:10 Calcium 7.8 mg/dL (8.4-10.2) L 01/27/21 18:10 Total Bilirubin 0.40 mg/dL (0.1-1.2) 01/26/21 17:55 AST 18 units/L (5-40) 01/26/21 17:55 ALT 14 units/L (7-56) 01/26/21 17:55 Alkaline Phosphatase 175 units/L (35-129) H 01/26/21 17:55 Total Protein 5.6 g/dL (6.3-8.2) L 01/26/21 17:55 Albumin 2.6 g/dL (3.9-5) L 01/26/21 17:55 Albumin/Globulin Ratio 0.9 % 01/26/21 17:55 Coronavirus (PCR) Negative (Negative) 01/27/21 08:30 Blood Type O POSITIVE 01/26/21 19:56 Antibody Screen Negative 01/26/21 19:56 Microbiology: Microbiology 01/26/21 18:28 Peripheral/Venous Blood Culture - Preliminary NO GROWTH AFTER 24 HOURS 01/26/21 18:20 Peripheral/Venous Blood Culture - Preliminary NO GROWTH AFTER 24 HOURS Sorto/IV: Voiding Method Incontinent Active Medications - Current Medications Current Medications: Generic Name Dose Route Start Last Admin Trade Name Freq PRN Reason Stop Dose Admin Acetaminophen 650 mg 01/26/21 18:10 Acetaminophen 325 Mg Tab PO Q4H PRN Pain MILD(1-3)/Fever >100.5/LUCAS Albuterol 2.5 mg 01/26/21 18:10 Albuterol 2.5 Mg/3 Ml Nebu IH Q4HRT PRN Shortness Of Breath Lipase/Protease/Amylase 1 each 01/27/21 11:00 Lipase 10,500/Protease 25,000/Amylase 43,750 (Units) Dr Joseph FEEDTUBE PRN PRN For Clogged Feeding Tube Ascorbic Acid 500 mg 01/26/21 22:00 01/27/21 23:16 Ascorbic Acid 500 Mg Tab PO 500 mg BID VINOD Administration Cholecalciferol 1,000 unit 01/27/21 10:00 01/27/21 10:00 Cholecalciferol (Vit D3) 1000 Unit (25 Mcg) Tab PO Not Given QDAY VINOD Hydromorphone HCl 0.25 mg 01/26/21 18:10 Hydromorphone 1 Mg/1 Ml Inj IV Q4H PRN Pain, Moderate (4-6) Hydromorphone HCl 0.5 mg 01/26/21 18:10 Hydromorphone 1 Mg/1 Ml Inj IV Q24H PRN Pain , Severe (7-10) Ceftriaxone Sodium 2 gm in 100 mls @ 200 mls/hr 01/26/21 20:00 01/27/21 23:17 Rocephin/Ns 2 Gm/100 Ml IV 01/30/21 20:29 200 mls/hr Q24H VINOD Administration Protocol Azithromycin 500 mg in 250 mls @ 250 mls/hr 01/26/21 20:00 01/27/21 23:28 Zithromax/Ns IV 01/30/21 20:59 250 mls/hr Q24H VINOD Administration Protocol Sodium Chloride 1,000 mls @ 75 mls/hr 01/27/21 15:00 Nacl 0.45% 1000 Ml IV DIRECT VINOD Dextrose/Sodium Chloride 1,000 mls @ 75 mls/hr 01/27/21 18:00 01/27/21 18:52 D5ns IV 75 mls/hr DIRECT VINOD Administration Methylprednisolone Sodium Succinate 40 mg 01/26/21 22:00 01/28/21 05:48 Methylprednisolone Sod Succinate 40 Mg/1 Ml Inj IV 40 mg Q8H VINOD Administration Ondansetron HCl 4 mg 01/26/21 18:10 Ondansetron 4 Mg/2 Ml Inj IV Q8H PRN Nausea And Vomiting Oxycodone/Acetaminophen 1 tab 01/26/21 18:10 Oxycodone /Acetaminophen 5-325mg Tab PO Q12H PRN Pain, Moderate (4-6) Simple Syrup 15 ml 01/27/21 11:00 Simple Syrup 15 Ml FEEDTUBE PRN PRN Hypoglycemia Simple Syrup 30 ml 01/27/21 11:00 Simple Syrup 15 Ml FEEDTUBE PRN PRN Hypoglycemia Sodium Bicarbonate 325 mg 01/27/21 11:00 Sodium Bicarbonate 325 Mg Tab FEEDTUBE PRN PRN For Clogged Feeding Tube Sodium Chloride 10 ml 01/26/21 22:00 01/27/21 23:16 Sodium Chloride 0.9% 10 Ml Flush Syringe IV 10 ml BID VINOD Administration Sodium Chloride 10 ml 01/26/21 18:10 Sodium Chloride 0.9% 10 Ml Flush Syringe IV PRN PRN LINE FLUSH Zinc Sulfate 220 mg 01/26/21 22:00 01/27/21 23:16 Zinc Sulfate 220 Mg Cap PO 220 mg BID VINOD Administration Nutrition/Malnutrition Assess - Dietary Evaluation Nutrition/Malnutrition Findings: Nutrition Notes Start: 01/27/21 10:34 Freq: Status: Active Protocol: Document 01/27/21 10:34 (Rec: 01/27/21 10:49 MK [id number]) Nutrition Notes Need for Assessment generated from: MD Order,medical billing associate,MST,Low BMI Initial or Follow up Assessment Current Diagnosis Acute Kidney Injury,Sepsis, Malnutrition Other Pertinent Diagnosis FTT, multiple myeloma Current Diet NPO Labs/Tests Na 152 K 5.8 BUN 38 Cr 1.5 BG 58 Pertinent Medications Solu Medrol Zinc Vitamin C Height 5 ft 3 in Weight 38.9 kg [place] Body Weight (kg) 52.27 BMI 15.2 Weight Status Underweight Subjective/Other Information MD consult for TF. RN screen for skin risk and MST. Screen for low BMI. Pt with sacral pressure ulcer. Waiting for PROFESSOR OF PHYSICS eval. Burn Absent Trauma Absent Minimum of two criteria Yes Body Fat Depletion Mild depletion (non-severe) Muscle Mass Mild Depletion (non-severe) #2 Nutrition Diagnosis Increased nutrient needs ( specify in comment below) Comments: protein Etiology wound healing As Evidenced by Signs and Symptoms pt with sacral pressure ulcer #1 Nutrition Diagnosis Malnutrition Etiology advanced age, chronic disease As Evidenced by Signs and Symptoms muscle and fat wasting Is patient on ventilator? No Is Patient Ambulatory and/or Out of Bed No REE-([facility]-confined to bed) 971.448 Kcal/Kg value to use for calculation 31 Approximate Energy Requirements Using 1206 kcal/Kg Calculation Used for Recommendations Kcal/kg Additional Notes Protein: (1.25-1.5g/kg) 48-58g Nutrition Intervention Change Diet Order: advance per PROFESSOR OF PHYSICS Nutrition Support: Nepro 1.8 at 28 ml/hr Flush 125 ml q4h or per MD Kcal 1,209 Protein (gm) 54 Fluid (mL) 489 Goal #1 Meet 100% of protein and energy needs via TF Goal #2 Wound healing Goal #3 Weight gain/maintenance Anticipated Discharge Needs: Unable to determine at this time Follow-Up By: 01/30/21 Additional Comments F/u: TF start and tolerance
--- NOTE | 2021-01-28 12:09 | Progress Note ---
Assessment and Plan Impression: * Acute kidney injury secondary to prerenal azotemia due to dehydration * Sepsis * Hyperkalemia * Hypernatremia * Decubitus ulcer * Multiple myeloma Plan: * Change IVF to D5W 75ml/hour * Hyperkalemia resolved w/ medical management * Abx per ID * Dose medications for renal function * Avoid potential nephrotoxins * Strict I/O * AM labs Subjective Date of service: 01/28/21 Interval history: No acute events Objective - Vital Signs Vital signs: Vital Signs - 12hr 01/28/21 01/28/21 01/28/21 08:23 09:55 11:21 Temperature 97.6 F Pulse Rate 62 Respiratory 18 Rate Blood Pressure 102/62 O2 Sat by Pulse 94 94 85 Oximetry - General Appearance General appearance: well-developed, frail EENT: ATNC, other (mask in place) Respiratory: Present: Clear to Ascultation Cardiology: regular, S1S2 Gastrointestinal: no tenderness Neurologic: other (arousable, more alert) Musculoskeletal: other (LE contracted) Psychiatric: cooperative - Lab 01/27/21 18:10 01/27/21 18:10 Most recent lab results Calcium 7.8 mg/dL (8.4-10.2) L 01/27/21 18:10 Medications & Allergies - Medications Allergies/Adverse Reactions: Allergies No Known Allergies Allergy (Verified 01/26/21 16:32) Home Medications: Home Medications Medication Instructions Recorded Confirmed Last Taken Type No Known Home Medications [No 01/28/21 01/28/21 Unknown History Reported Home Medications] Active Medications: Generic Name Dose Route Start Last Admin Trade Name Freq PRN Reason Stop Dose Admin Acetaminophen 650 mg 01/26/21 18:10 Acetaminophen 325 Mg Tab PO Q4H PRN Pain MILD(1-3)/Fever >100.5/LUCAS Albuterol 2.5 mg 01/26/21 18:10 Albuterol 2.5 Mg/3 Ml Nebu IH Q4HRT PRN Shortness Of Breath Lipase/Protease/Amylase 1 each 01/27/21 11:00 Lipase 10,500/Protease 25,000/Amylase 43,750 (Units) Dr Joseph FEEDTUBE PRN PRN For Clogged Feeding Tube Ascorbic Acid 500 mg 01/26/21 22:00 01/27/21 23:16 Ascorbic Acid 500 Mg Tab PO 500 mg BID VINOD Administration Cholecalciferol 1,000 unit 01/27/21 10:00 01/27/21 10:00 Cholecalciferol (Vit D3) 1000 Unit (25 Mcg) Tab PO Not Given QDAY VINOD Hydromorphone HCl 0.25 mg 01/26/21 18:10 Hydromorphone 1 Mg/1 Ml Inj IV Q4H PRN Pain, Moderate (4-6) Hydromorphone HCl 0.5 mg 01/26/21 18:10 Hydromorphone 1 Mg/1 Ml Inj IV Q24H PRN Pain , Severe (7-10) Ceftriaxone Sodium 2 gm in 100 mls @ 200 mls/hr 01/26/21 20:00 01/27/21 23:17 Rocephin/Ns 2 Gm/100 Ml IV 01/30/21 20:29 200 mls/hr Q24H VINOD Administration Protocol Azithromycin 500 mg in 250 mls @ 250 mls/hr 01/26/21 20:00 01/27/21 23:28 Zithromax/Ns IV 01/30/21 20:59 250 mls/hr Q24H VINOD Administration Protocol Sodium Chloride 1,000 mls @ 75 mls/hr 01/27/21 15:00 Nacl 0.45% 1000 Ml IV DIRECT VINOD Dextrose/Sodium Chloride 1,000 mls @ 75 mls/hr 01/27/21 18:00 01/27/21 18:52 D5ns IV 75 mls/hr DIRECT VINOD Administration Methylprednisolone Sodium Succinate 40 mg 01/26/21 22:00 01/28/21 05:48 Methylprednisolone Sod Succinate 40 Mg/1 Ml Inj IV 40 mg Q8H VINOD Administration Ondansetron HCl 4 mg 01/26/21 18:10 Ondansetron 4 Mg/2 Ml Inj IV Q8H PRN Nausea And Vomiting Oxycodone/Acetaminophen 1 tab 01/26/21 18:10 Oxycodone /Acetaminophen 5-325mg Tab PO Q12H PRN Pain, Moderate (4-6) Simple Syrup 15 ml 01/27/21 11:00 Simple Syrup 15 Ml FEEDTUBE PRN PRN Hypoglycemia Simple Syrup 30 ml 01/27/21 11:00 Simple Syrup 15 Ml FEEDTUBE PRN PRN Hypoglycemia Sodium Bicarbonate 325 mg 01/27/21 11:00 Sodium Bicarbonate 325 Mg Tab FEEDTUBE PRN PRN For Clogged Feeding Tube Sodium Chloride 10 ml 01/26/21 22:00 01/27/21 23:16 Sodium Chloride 0.9% 10 Ml Flush Syringe IV 10 ml BID VINOD Administration Sodium Chloride 10 ml 01/26/21 18:10 Sodium Chloride 0.9% 10 Ml Flush Syringe IV PRN PRN LINE FLUSH Zinc Sulfate 220 mg 01/26/21 22:00 01/27/21 23:16 Zinc Sulfate 220 Mg Cap PO 220 mg BID VINOD Administration
[2021-01-28] MEDS: DEXTROSE 5% IN WATER 1,000 ML IV SCH (13:50)
--- NOTE | 2021-01-28 15:13 | XRay Report ---
ABDOMEN 1 VIEW(S) INDICATION / CLINICAL INFORMATION: tube placement. COMPARISON: Yesterday FINDINGS: TUBES / LINES: Dobbhoff tube tip is in the proximal stomach and should be advanced at least 10 cm int o the duodenum. BOWEL GAS PATTERN: No significant abnormality. FREE AIR / EXTRALUMINAL GAS: None seen. ADDITIONAL FINDINGS: Mild patchy bibasilar airspace disease again noted. IMPRESSION: 1. Dobbhoff tube as above. Signer Name: Darek Chang MD Signed: 01/28/2021 3:08 PM Workstation Name: [id number]
[2021-01-28] MEDS: ASCORBIC ACID 500 MG TAB PO SCH ×2 (15:50→22:47)
[2021-01-28] MEDS: ZINC SULFATE 220 MG CAP PO SCH ×2 (15:50→22:47)
[2021-01-28] MEDS: CHOLECALCIFEROL (VIT D3) 1000 UNIT (25 mcg) TAB PO SCH (15:50)
[2021-01-28] MEDS: cefTRIAXone/NS 2 GM/100 ML 2 GM/100 ML BAG IV SCH (22:31)
[2021-01-28] MEDS: AZITHROMYCIN/NS 500 MG/250 ML 500 MG/250 ML BAG IV SCH (22:32)
[2021-01-29] MEDS: methylPREDNISolone Sod Succinate 40 MG/1 ML INJ IV SCH ×3 (06:06→22:32)
[2021-01-29] MEDS: DEXTROSE 5% IN WATER 1,000 ML IV SCH ×2 (06:06→14:38)
--- NOTE | 2021-01-29 10:42 | Progress Note ---
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 Patient has diminished cognition at the time my evaluation and is unable to provide history. Patient history provided by EMS staff, ED staff, long-term facility staff, as well as patient daughter who was made available by telephone for interview. As per daughter she was notified by long-term facility staff today and informed that the patient "was getting sick". The patient has experienced decreased responsiveness as well as increased weakness over the past 1 week with acute worsening of symptoms over the past 1 day. EMS was notified and upon arrival the patient was found to be in distress and was subsequently transported to [facility] for further care and evalua tion of the aforementioned symptoms. The patient was seen and evaluated in the emergency department. All lab and imaging studies reviewed. Patient was found to have a pulse oximetry of 85% on room air which is consistent with acute hypoxemic respiratory failure. A chest x-ray revealed bilateral pneumonia. The patient was also found to have sepsis, acute kidney injury, as well as severe hypernatremia. The patient was admitted to medical floor and initiated on sepsis protocol, pneumonia protocol, as well as coronavirus protocol. No further history is obtainable. The patient has diminished cognition but has a positive gag reflex and is able to protect her airway without difficulty the t rosa my evaluation. Advanced care planning conducted in ED. 01/27: Patient seen and examined, very lethargic, and appears deconditioned and dry. - ID and Nephrology consult - Gentle hydration while awaiting COVID testing. - Monitor Platelet level - Follow cultures. - Q2H turns 01/28: Patient seen and examined unable to get Dobbhoff yesterday the nurse yesterday said that he was able to tolerate pured diet as recommended by speech therapist. Although today's nurse reports that the patient is not tolerating so we will try the Dobbhoff again. We will continue to reevaluate and on my examination he actually opens her mouth and responds to some questions recommended we try assistance with feeding again today. Renal function showing some improvement ID input appreciated continue antibiotics at this time. Leukocytosis still worse we will recheck. 01/29/21 Patient is seen and examined. Patient is awake alert but demented. Patient pulled out the Dobbhoff tube. Will reinsert the Dobbhoff tube today and if possible start feeding. If needed will put the patient on restraint. Continue current management. Nutritional evaluation. Recheck CBC CMP in the morning. Nephrology follow-up. Assessment: 85-year-old female with history of dementia, cementation, sacral decubitus ulcer, admitted on 01/26/2021 secondary to a week history of decreased responsiveness and generalized weakness associated with shortness of breath: (1) Sepsis Current Visit: Yes Status: Acute Plan to address problem: Sepsis protocol: IV antibiotic therapy, IV fluid resuscitation therapy, serial lactic acid level, monitor urine output every shift, monitor fluid balance, maintain mean arterial pressure greater than equal 65, blood culture. (2) Suspected 2019 novel coronavirus infection Current Visit: Yes Status: Acute Plan to address problem: Coronavirus protocol: IV steroid therapy, IV antibiotic therapy, supplemental oxygen, pulse oximetry, contact precautions, isolation precautions, nebulizer therapy, vitamin C therapy, vitamin D therapy, zinc therapy, (3) Severe malnutrition Current Visit: Yes Status: Acute Plan to address problem: Dietary supplementation, supportive care. (4) Hypernatremia Current Visit: Yes Status: Acute Plan to address problem: IV fluid resuscitation therapy, BMP, repeat BMP in a.m. (5) Acute kidney injury (SUDHIR) with acute tubular necrosis (ATN) Current Visit: Yes Status: Acute Plan to address problem: BMP, IV fluid resuscitation therapy, repeat BMP in a.m. to monitor serum creatinine as well as GFR (6) Multiple myeloma Current Visit: Yes Status: Acute Qualifiers: Multiple myeloma remission status: unspecified Qualified Code(s): C90.00 - Multiple myeloma not having achieved remission Plan to address problem: Supportive care, lytic bone lesions on x-ray. Patient family informed. No intervention desired. (7) Bilateral pneumonia Current Visit: Yes Status: Acute Plan to address problem: Pneumonia protocol: Chest x-ray, CBC, CMP, supplemental oxygen, pulse oximetry, nebulizer therapy, blood culture. IV antibiotic therapy. (8) Multiple Pressure ulcer, Sacral Decubitus Ulcer (9) Anemia (10)Lactic Acidosis (11)Hyperkalemia (12) Advance care planning Current Visit: Yes Status: Acute Plan to address problem: Disease education conducted, care plan discussed, diagnosis discussed, poor prognosis discussed. Patient daughter Emy Chambers informed of patient prognosis. Patient is DNR. Patient daughter elects to have medical therapy at this time. Patient daughter made aware that patient may not tolerate therapy and current therapy may hasten patient demise. Patient daughter acknowledges understanding instructions patient daughter acknowledges understanding and agreement with current care plan. +30 minutes. (13)DVT prophylaxis Current Visit: Yes Status: Acute Plan to address problem: SCD to bilateral lower extremities while in bed History Interval history: Patient is seen and examined Lab and medication is reviewed Patient is awake alert but demented. No apparent distress. Pulled out Dobbhoff tube Hospitalist Physical - Constitutional Vitals: Temp Pulse Resp BP Pulse Ox 97.5 F L 62 17 105/61 98 01/28/21 16:32 01/28/21 11:21 01/29/21 07:35 01/29/21 05:39 01/29/21 10:00 General appearance: Present: mild distress - EENT Eyes: Present: PERRL, EOM intact ENT: hearing intact, clear oral mucosa, dentition normal - Neck Neck: Present: supple, normal ROM - Respiratory Respiratory effort: normal Respiratory: bilateral: diminished - Cardiovascular Rhythm: regular Heart Sounds: Present: S1 & S2 - Extremities Extremities: no ischemia, pulses intact, No edema Peripheral Pulses: within normal limits - Abdominal General gastrointestinal: soft, non-tender, non-distended, normal bowel sounds - Integumentary Integumentary: Present: clear, warm, dry - Psychiatric Psychiatric: other (Demented) - Neurologic Neurologic: other (Demented) - Allied Health Allied health notes reviewed: nursing Results - Labs CBC & Chem 7: 01/27/21 18:10 01/27/21 18:10 Labs: Laboratory Last Values WBC 21.3 K/mm3 (4.5-11.0) H 01/27/21 18:10 RBC 2.70 M/mm3 (3.65-5.03) L 01/27/21 18:10 Hgb 8.6 gm/dl (10.1-14.3) L 01/27/21 18:10 Hct 26.8 % (30.3-42.9) L 01/27/21 18:10 MCV 99 fl (79-97) H 01/27/21 18:10 MCH 32 pg (28-32) 01/27/21 18:10 MCHC 32 % (30-34) 01/27/21 18:10 RDW 24.8 % (13.2-15.2) H 01/27/21 18:10 Plt Count 151 K/mm3 (140-440) 01/27/21 18:10 Lymph # (Auto) Education Nurse 01/27/21 18:10 Add Manual Diff Complete 01/27/21 18:10 Total Counted 200 01/27/21 18:10 Seg Neuts % (Manual) 76.5 % (40.0-70.0) H 01/27/21 18:10 Band Neutrophils % 1.0 % 01/27/21 18:10 Lymphocytes % (Manual) 17.0 % (13.4-35.0) 01/27/21 18:10 Reactive Lymphs % (Man) 0.5 % 01/27/21 18:10 Monocytes % (Manual) 4.0 % (0.0-7.3) 01/27/21 18:10 Eosinophils % (Manual) 0.5 % (0.0-4.3) 01/27/21 18:10 Basophils % (Manual) 0.5 % (0.0-1.8) 01/27/21 18:10 Metamyelocytes % 1.0 % 01/26/21 17:55 Myelocytes % 1.0 % 01/26/21 17:55 Nucleated RBC % 1.0 % (0.0-0.9) H 01/27/21 18:10 Seg Neutrophils # Man 16.3 K/mm3 (1.8-7.7) H 01/27/21 18:10 Band Neutrophils # 0.2 K/mm3 01/27/21 18:10 Lymphocytes # (Manual) 3.6 K/mm3 (1.2-5.4) 01/27/21 18:10 Abs React Lymphs (Man) 0.1 K/mm3 01/27/21 18:10 Monocytes # (Manual) 0.9 K/mm3 (0.0-0.8) H 01/27/21 18:10 Eosinophils # (Manual) 0.1 K/mm3 (0.0-0.4) 01/27/21 18:10 Basophils # (Manual) 0.1 K/mm3 (0.0-0.1) 01/27/21 18:10 Metamyelocytes # 0.0 K/mm3 01/27/21 18:10 Myelocytes # 0.0 K/mm3 01/27/21 18:10 Promyelocytes # 0.0 K/mm3 01/27/21 18:10 Blast Cells # 0.0 K/mm3 01/27/21 18:10 WBC Morphology Not Reportable 01/27/21 18:10 Hypersegmented Neuts Not Reportable 01/27/21 18:10 Hyposegmented Neuts Not Reportable 01/27/21 18:10 Hypogranular Neuts Not Reportable 01/27/21 18:10 Smudge Cells Not Reportable 01/27/21 18:10 Toxic Granulation Not Reportable 01/27/21 18:10 Toxic Vacuolation Not Reportable 01/27/21 18:10 Dohle Bodies Not Reportable 01/27/21 18:10 Pelger-Huet Anomaly Not Reportable 01/27/21 18:10 Francisco J Rods Not Reportable 01/27/21 18:10 Platelet Estimate Consistent w auto 01/27/21 18:10 Clumped Platelets Not Reportable 01/27/21 18:10 Plt Clumps, EDTA Not Reportable 01/27/21 18:10 Large Platelets Not Reportable 01/27/21 18:10 Giant Platelets Not Reportable 01/27/21 18:10 Platelet Satelliting Not Reportable 01/27/21 18:10 Plt Morphology Comment Not Reportable 01/27/21 18:10 RBC Morphology Not Reportable 01/27/21 18:10 Dimorphic RBCs Not Reportable 01/27/21 18:10 Polychromasia Not Reportable 01/27/21 18:10 Hypochromasia Not Reportable 01/27/21 18:10 Poikilocytosis Not Reportable 01/27/21 18:10 Anisocytosis 1+ 01/27/21 18:10 Microcytosis Not Reportable 01/27/21 18:10 Macrocytosis Not Reportable 01/27/21 18:10 Spherocytes Not Reportable 01/27/21 18:10 Pappenheimer Bodies Not Reportable 01/27/21 18:10 Sickle Cells Not Reportable 01/27/21 18:10 Target Cells Not Reportable 01/27/21 18:10 Tear Drop Cells Not Reportable 01/27/21 18:10 Ovalocytes Not Reportable 01/27/21 18:10 Helmet Cells Not Reportable 01/27/21 18:10 [place] Bodies Not Reportable 01/27/21 18:10 [place] Rings Not Reportable 01/27/21 18:10 [place] Cells Not Reportable 01/27/21 18:10 Bite Cells Not Reportable 01/27/21 18:10 Crenated Cell Not Reportable 01/27/21 18:10 Elliptocytes Not Reportable 01/27/21 18:10 Acanthocytes (Spur) Not Reportable 01/27/21 18:10 Rouleaux Not Reportable 01/27/21 18:10 Hemoglobin C Crystals Not Reportable 01/27/21 18:10 Schistocytes Not Reportable 01/27/21 18:10 Malaria parasites Not Reportable 01/27/21 18:10 Garry Bodies Not Reportable 01/27/21 18:10 Hem Pathologist Commnt No 01/27/21 18:10 Sodium 152 mmol/L (137-145) H 01/27/21 18:10 Potassium 4.4 mmol/L (3.6-5.0) D 01/27/21 18:10 Chloride 121.0 mmol/L (98-107) H 01/27/21 18:10 Carbon Dioxide 23 mmol/L (22-30) 01/27/21 18:10 Anion Gap 12 mmol/L 01/27/21 18:10 BUN 56 mg/dL (7-17) H 01/27/21 18:10 Creatinine 1.4 mg/dL (0.6-1.2) H 01/27/21 18:10 Estimated GFR 36 ml/min 01/27/21 18:10 BUN/Creatinine Ratio 40 % 01/27/21 18:10 Glucose 76 mg/dL (65-100) 01/27/21 18:10 Lactic Acid 1.30 mmol/L (0.7-2.0) 01/27/21 18:10 Calcium 7.8 mg/dL (8.4-10.2) L 01/27/21 18:10 Total Bilirubin 0.40 mg/dL (0.1-1.2) 01/26/21 17:55 AST 18 units/L (5-40) 01/26/21 17:55 ALT 14 units/L (7-56) 01/26/21 17:55 Alkaline Phosphatase 175 units/L (35-129) H 01/26/21 17:55 Total Protein 5.6 g/dL (6.3-8.2) L 01/26/21 17:55 Albumin 2.6 g/dL (3.9-5) L 01/26/21 17:55 Albumin/Globulin Ratio 0.9 % 01/26/21 17:55 Coronavirus (PCR) Negative (Negative) 01/27/21 08:30 Blood Type O POSITIVE 01/26/21 19:56 Antibody Screen Negative 01/26/21 19:56 Microbiology: Microbiology 01/26/21 18:28 Peripheral/Venous Blood Culture - Preliminary NO GROWTH AFTER 48 HOURS 01/26/21 18:20 Peripheral/Venous Blood Culture - Preliminary NO GROWTH AFTER 48 HOURS Sorto/IV: Voiding Method Incontinent Active Medications - Current Medications Current Medications: Generic Name Dose Route Start Last Admin Trade Name Freq PRN Reason Stop Dose Admin Acetaminophen 650 mg 01/26/21 18:10 Acetaminophen 325 Mg Tab PO Q4H PRN Pain MILD(1-3)/Fever >100.5/LUCAS Albuterol 2.5 mg 01/26/21 18:10 Albuterol 2.5 Mg/3 Ml Nebu IH Q4HRT PRN Shortness Of Breath Lipase/Protease/Amylase 1 each 01/27/21 11:00 Lipase 10,500/Protease 25,000/Amylase 43,750 (Units) Dr Joseph FEEDTUBE PRN PRN For Clogged Feeding Tube Ascorbic Acid 500 mg 01/26/21 22:00 01/28/21 22:47 Ascorbic Acid 500 Mg Tab PO Not Given BID VINOD Cholecalciferol 1,000 unit 01/27/21 10:00 01/28/21 15:50 Cholecalciferol (Vit D3) 1000 Unit (25 Mcg) Tab PO Not Given QDAY VINOD Hydromorphone HCl 0.25 mg 01/26/21 18:10 Hydromorphone 1 Mg/1 Ml Inj IV Q4H PRN Pain, Moderate (4-6) Hydromorphone HCl 0.5 mg 01/26/21 18:10 Hydromorphone 1 Mg/1 Ml Inj IV Q24H PRN Pain , Severe (7-10) Ceftriaxone Sodium 2 gm in 100 mls @ 200 mls/hr 01/26/21 20:00 01/28/21 22:31 Rocephin/Ns 2 Gm/100 Ml IV 01/30/21 20:29 200 mls/hr Q24H VINOD Administration Protocol Azithromycin 500 mg in 250 mls @ 250 mls/hr 01/26/21 20:00 01/28/21 22:32 Zithromax/Ns IV 01/30/21 20:59 250 mls/hr Q24H VINOD Administration Protocol Dextrose 1,000 mls @ 75 mls/hr 01/28/21 13:00 01/29/21 06:06 D5w IV 75 mls/hr DIRECT VINOD Administration Methylprednisolone Sodium Succinate 40 mg 01/26/21 22:00 01/29/21 06:06 Methylprednisolone Sod Succinate 40 Mg/1 Ml Inj IV 40 mg Q8H VINOD Administration Ondansetron HCl 4 mg 01/26/21 18:10 Ondansetron 4 Mg/2 Ml Inj IV Q8H PRN Nausea And Vomiting Oxycodone/Acetaminophen 1 tab 01/26/21 18:10 Oxycodone /Acetaminophen 5-325mg Tab PO Q12H PRN Pain, Moderate (4-6) Simple Syrup 15 ml 01/27/21 11:00 Simple Syrup 15 Ml FEEDTUBE PRN PRN Hypoglycemia Simple Syrup 30 ml 01/27/21 11:00 Simple Syrup 15 Ml FEEDTUBE PRN PRN Hypoglycemia Sodium Bicarbonate 325 mg 01/27/21 11:00 Sodium Bicarbonate 325 Mg Tab FEEDTUBE PRN PRN For Clogged Feeding Tube Sodium Chloride 10 ml 01/26/21 22:00 01/28/21 22:35 Sodium Chloride 0.9% 10 Ml Flush Syringe IV 10 ml BID VINOD Administration Sodium Chloride 10 ml 01/26/21 18:10 Sodium Chloride 0.9% 10 Ml Flush Syringe IV PRN PRN LINE FLUSH Zinc Sulfate 220 mg 01/26/21 22:00 01/28/21 22:47 Zinc Sulfate 220 Mg Cap PO Not Given BID VINOD Nutrition/Malnutrition Assess - Dietary Evaluation Nutrition/Malnutrition Findings: Nutrition Notes Start: 01/27/21 10:34 Freq: Status: Active Protocol: Document 01/27/21 10:34 PAULA (Rec: 01/27/21 10:49 MK [id number]) Nutrition Notes Need for Assessment generated from: MD Order,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 RN screen for skin risk and MST. Screen for low BMI. Pt with sacral pressure ulcer. Waiting for FLOOR REFINISHER eval. Burn Absent Trauma Absent Minimum of two criteria Yes Body Fat Depletion Mild depletion (non-severe) Muscle Mass Mild Depletion (non-severe) #2 Nutrition Diagnosis Increased nutrient needs ( specify in comment below) Comments: protein Etiology wound healing As Evidenced by Signs and Symptoms pt with sacral pressure ulcer #1 Nutrition Diagnosis Malnutrition Etiology advanced age, chronic disease As Evidenced by Signs and Symptoms muscle and fat wasting Is patient on ventilator? No Is Patient Ambulatory and/or Out of Bed No REE-([facility]-confined to bed) 971.448 Kcal/Kg value to use for calculation 31 Approximate Energy Requirements Using 1206 kcal/Kg Calculation Used for Recommendations Kcal/kg Additional Notes Protein: (1.25-1.5g/kg) 48-58g Nutrition Intervention Change Diet Order: advance per FLOOR REFINISHER Nutrition Support: Nepro 1.8 at 28 ml/hr Flush 125 ml q4h or per MD Kcal 1,209 Protein (gm) 54 Fluid (mL) 489 Goal #1 Meet 100% of protein and energy needs via TF Goal #2 Wound healing Goal #3 Weight gain/maintenance Anticipated Discharge Needs: Unable to determine at this time Follow-Up By: 01/30/21 Additional Comments F/u: TF start and tolerance - Malnutrition Assessment Minimum of two criteria: Yes - Attestation Statement I have reviewed and agreed w/ Malnutrition eval & tx plan: Yes
[2021-01-29] MEDS: ZINC SULFATE 220 MG CAP PO SCH ×2 (12:19→22:33)
[2021-01-29] MEDS: ASCORBIC ACID 500 MG TAB PO SCH ×2 (12:20→22:35)
[2021-01-29] MEDS: CHOLECALCIFEROL (VIT D3) 1000 UNIT (25 mcg) TAB PO SCH (12:20)
--- NOTE | 2021-01-29 12:56 | XRay Report ---
ABDOMEN 1 VIEW 01/29/2021 12:48 PM INDICATION / CLINICAL INFORMATION: Tube placement. COMPARISON: Yesterday. FINDINGS: TUBES / LINES: There is a weighted enteric feeding tube which is doubled back on itself in the gastri c body with the tip overlying the gastric fundus. BOWEL GAS PATTERN: No significant abnormality. FREE AIR / EXTRALUMINAL GAS: None. ADDITIONAL FINDINGS: Pleuroparenchymal opacity in the left lower hemithorax has shown mild improvemen t. Parenchymal disease in the right perihilar region is stable. There is advanced spondylosis. Genera lized increased density of the bones is probably related to metastatic disease and appears unchanged. IMPRESSION: Feeding tube tip overlies the gastric fundus. Signer Name: Yuan Hopper MD Signed: 01/29/2021 12:52 PM Workstation Name: [id number]
--- NOTE | 2021-01-29 17:15 | Progress Note ---
Assessment and Plan Impression: * Acute kidney injury secondary to prerenal azotemia due to dehydration * Sepsis * Bilateral PNA (COVID PCR negative) * Hyperkalemia * Hypernatremia * Decubitus ulcer * Hx of Multiple myeloma Plan: * AM labs ordered but uncollected - discussed with lab, will send phlebotomy to collect * Continue D5W 75ml/hour for now * Hyperkalemia resolved w/ medical management * Abx per ID * Dose medications for renal function * Avoid potential nephrotoxins * Strict I/O * AM labs Subjective Date of service: 01/29/21 Interval history: Patient is s/p NGT. Per RN, patient to receive free water 120ml q3hpbxb. Objective - Vital Signs Vital signs: Vital Signs - 12hr 01/29/21 01/29/21 01/29/21 05:39 07:35 08:36 Respiratory 17 Rate Blood Pressure 105/61 O2 Sat by Pulse 86 94 Oximetry 01/29/21 10:00 Respiratory Rate Blood Pressure O2 Sat by Pulse 98 Oximetry - General Appearance General appearance: frail EENT: ATNC Respiratory: Present: Clear to Ascultation Cardiology: regular, S1S2 Integumentary: warm and dry Neurologic: other (somnolent, nonverbal) - Lab 01/27/21 18:10 01/27/21 18:10 Most recent lab results Calcium 7.8 mg/dL (8.4-10.2) L 01/27/21 18:10 Medications & Allergies - Medications Allergies/Adverse Reactions: Allergies No Known Allergies Allergy (Verified 01/26/21 16:32) Home Medications: Home Medications Medication Instructions Recorded Confirmed Last Taken Type No Known Home Medications [No 01/28/21 01/28/21 Unknown History Reported Home Medications] Active Medications: Generic Name Dose Route Start Last Admin Trade Name Freq PRN Reason Stop Dose Admin Acetaminophen 650 mg 01/26/21 18:10 Acetaminophen 325 Mg Tab PO Q4H PRN Pain MILD(1-3)/Fever >100.5/LUCAS Albuterol 2.5 mg 01/26/21 18:10 Albuterol 2.5 Mg/3 Ml Nebu IH Q4HRT PRN Shortness Of Breath Lipase/Protease/Amylase 1 each 01/27/21 11:00 Lipase 10,500/Protease 25,000/Amylase 43,750 (Units) Dr Joseph FEEDTUBE PRN PRN For Clogged Feeding Tube Ascorbic Acid 500 mg 01/26/21 22:00 01/29/21 12:20 Ascorbic Acid 500 Mg Tab PO Not Given BID VINOD Cholecalciferol 1,000 unit 01/27/21 10:00 01/29/21 12:20 Cholecalciferol (Vit D3) 1000 Unit (25 Mcg) Tab PO Not Given QDAY VINOD Hydromorphone HCl 0.25 mg 01/26/21 18:10 Hydromorphone 1 Mg/1 Ml Inj IV Q4H PRN Pain, Moderate (4-6) Hydromorphone HCl 0.5 mg 01/26/21 18:10 Hydromorphone 1 Mg/1 Ml Inj IV Q24H PRN Pain , Severe (7-10) Ceftriaxone Sodium 2 gm in 100 mls @ 200 mls/hr 01/26/21 20:00 01/28/21 22:31 Rocephin/Ns 2 Gm/100 Ml IV 01/30/21 20:29 200 mls/hr Q24H VINOD Administration Protocol Azithromycin 500 mg in 250 mls @ 250 mls/hr 01/26/21 20:00 01/28/21 22:32 Zithromax/Ns IV 01/30/21 20:59 250 mls/hr Q24H VINOD Administration Protocol Dextrose 1,000 mls @ 75 mls/hr 01/28/21 13:00 01/29/21 14:38 D5w IV 75 mls/hr DIRECT VINOD Administration Methylprednisolone Sodium Succinate 40 mg 01/26/21 22:00 01/29/21 14:37 Methylprednisolone Sod Succinate 40 Mg/1 Ml Inj IV 40 mg Q8H VINOD Administration Ondansetron HCl 4 mg 01/26/21 18:10 Ondansetron 4 Mg/2 Ml Inj IV Q8H PRN Nausea And Vomiting Oxycodone/Acetaminophen 1 tab 01/26/21 18:10 Oxycodone /Acetaminophen 5-325mg Tab PO Q12H PRN Pain, Moderate (4-6) Simple Syrup 15 ml 01/27/21 11:00 Simple Syrup 15 Ml FEEDTUBE PRN PRN Hypoglycemia Simple Syrup 30 ml 01/27/21 11:00 Simple Syrup 15 Ml FEEDTUBE PRN PRN Hypoglycemia Sodium Bicarbonate 325 mg 01/27/21 11:00 Sodium Bicarbonate 325 Mg Tab FEEDTUBE PRN PRN For Clogged Feeding Tube Sodium Chloride 10 ml 01/26/21 22:00 01/29/21 12:19 Sodium Chloride 0.9% 10 Ml Flush Syringe IV 10 ml BID VINOD Administration Sodium Chloride 10 ml 01/26/21 18:10 Sodium Chloride 0.9% 10 Ml Flush Syringe IV PRN PRN LINE FLUSH Zinc Sulfate 220 mg 01/26/21 22:00 01/29/21 12:19 Zinc Sulfate 220 Mg Cap PO Not Given BID VINOD
[2021-01-29 19:14] LABS: Calcium 7.6 mg/dL (8.4-10.2)
[2021-01-29] MEDS: cefTRIAXone/NS 2 GM/100 ML 2 GM/100 ML BAG IV SCH (22:32)
[2021-01-29] MEDS: AZITHROMYCIN/NS 500 MG/250 ML 500 MG/250 ML BAG IV SCH (22:58)
[2021-01-30] MEDS: methylPREDNISolone Sod Succinate 40 MG/1 ML INJ IV SCH (05:07)
[2021-01-30 09:26] LABS: Albumin 2.5 g/dL (3.9-5); Calcium 7.7 mg/dL (8.4-10.2)
[2021-01-30 09:27] LABS: Mean Corpuscular HGB Conc 28 % (30-34); Red Blood Count 2.34 M/mm3 (3.65-5.03)
[2021-01-30] MEDS: ZINC SULFATE 220 MG CAP PO SCH (09:28)
[2021-01-30] MEDS: ASCORBIC ACID 500 MG TAB PO SCH (09:30)
[2021-01-30] MEDS: CHOLECALCIFEROL (VIT D3) 1000 UNIT (25 mcg) TAB PO SCH (09:30)
[2021-01-30 09:32] LABS: Hematocrit 26.5 % (30.3-42.9); Hemoglobin 7.5 gm/dl (10.1-14.3); Mean Corpuscular Volume 113 fl (79-97); Platelet Count 84 K/mm3 (140-440); Red Cell Distribution Width 25.3 % (13.2-15.2)
[2021-01-30 11:12] LABS: Anisocytosis 2+; Band Neutrophils # (Manual) 2.1 K/mm3; Burr Cells 1+; Macrocytosis 1+; Myelocytes # (Manual) 0.2 K/mm3; Platelet Estimate Consistent w Auto; Total Cells Counted 100
--- NOTE | 2021-01-30 14:14 | Progress Note ---
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 Patient has diminished cognition at the time my evaluation and is unable to provide history. Patient history provided by EMS staff, ED staff, jail facility staff, as well as patient daughter who was made available by telephone for interview. As per daughter she was notified by jail facility staff today and informed that the patient "was getting sick". The patient has experienced decreased responsiveness as well as increased weakness over the past 1 week with acute worsening of symptoms over the past 1 day. EMS was notified and upon arrival the patient was found to be in distress and was subsequently transported to [facility] for further care and evaluation of the aforementioned symptoms. The patient was seen and evaluated in the emergency department. All lab and imaging studies reviewed. Patient was found to have a pulse oximetry of 85% on room air which is consistent with acute hypoxemic respiratory failure. A chest x-ray revealed bilateral pneumonia. The patient was also found to have sepsis, acute kidney injury, as well as severe hypernatremia. The patient was admitted to medical floor and initiated on sepsis protocol, pneumonia protocol, as well as coronavirus protocol. No further history is obtainable. The patient has diminished cognition but has a positive gag reflex and is able to protect her airway without difficulty the time my evaluation. Advanced care planning conducted in ED. 01/27: Patient seen and examined, very lethargic, and appears deconditioned and dry. - ID and Nephrology consult - Gentle hydration while awaiting COVID testing. - Monitor Platelet level - Follow cultures. - Q2H turns 01/28: Patient seen and examined unable to get Dobbhoff yesterday the nurse y esterday said that he was able to tolerate pured diet as recommended by speech therapist. Although today's nurse reports that the patient is not tolerating so we will try the Dobbhoff again. We will continue to reevaluate and on my examination he actually opens her mouth and responds to some questions recommended we try assistance with feeding again today. Renal function showing some improvement ID input appreciated continue antibiotics at this time. Leukocytosis still worse we will recheck. Assessment: 85-year-old female with history of dementia, cementation, sacral decubitus ulcer, admitted on 01/26/2021 secondary to a week history of decreased responsiveness and generalized weakness associated with shortness of breath 01/29/21 Patient is seen and examined. Patient is awake alert but demented. Patient pulled out the Dobbhoff tube. Will reinsert the Dobbhoff tube today and if possible start feeding. If needed will put the patient on restraint. Continue current management. Nutritional evaluation. Recheck CBC CMP in the morning. Nephrology follow-up. Assessment: 85-year-old female with history of dementia, cementation, sacral decubitus ulcer, admitted on 01/26/2021 secondary to a week history of decreased responsiveness and generalized weakness associated with shortness of breath: 01/30: Patient seen and examined, she is staill very leathrgic, tube feed is ongoing, unfortunately worsening metabolic acidosis. I spoke to the patients daughter and discussed overall medical condition, while they maintained DNR, the y do not want comfort measure or hospice. I also advised that patient is having liver failure. Will further evaluate the liver Nephrology input appreciated. Will await Wound care evaluation and may need a surgical eval of the multiple wounds for possible debridement. Aspiration precautions Poor prognosis (1) Sepsis Current Visit: Yes Status: Acute Plan to address problem: Sepsis protocol: IV antibiotic therapy, IV fluid resuscitation therapy, serial lactic acid level, monitor urine output every shift, monitor fluid balance, maintain mean arterial pressure greater than equal 65, blood culture. (2) Suspected 2019 novel coronavirus infection Current Visit: Yes Status: Acute Plan to address problem: Coronavirus protocol: IV steroid therapy, IV antibiotic therapy, supplemental oxygen, pulse oximetry, contact precautions, isolation precautions, nebulizer therapy, vitamin C therapy, vitamin D therapy, zinc therapy, (3) Severe malnutrition Current Visit: Yes Status: Acute Plan to address problem: Dietary supplementation, supportive care. (4) Hypernatremia Current Visit: Yes Status: Acute Plan to address problem: IV fluid resuscitation therapy, BMP, repeat BMP in a.m. (5) Acute kidney injury (SUDHIR) with acute tubular necrosis (ATN) Current Visit: Yes Status: Acute Plan to address problem: BMP, IV fluid resuscitation therapy, repeat BMP in a.m. to monitor serum creatinine as well as GFR (6) Multiple myeloma Current Visit: Yes Status: Acute Qualifiers: Multiple myeloma remission status: unspecified Qualified Code(s): C90.00 - Multiple myeloma not having achieved remission Plan to address problem: Supportive care, lytic bone lesions on x-ray. Patient family informed. No intervention desired. (7) Bilateral pneumonia Current Visit: Yes Status: Acute Plan to address problem: Pneumonia protocol: Chest x-ray, CBC, CMP, supplemental oxygen, pulse oximetry, nebulizer therapy, blood culture. IV antibiotic therapy. (8) Multiple Pressure ulcer, Sacral Decubitus Ulcer (9) Anemia (10)Lactic Acidosis (11)Hyperkalemia (12) Advance care planning Current Visit: Yes Status: Acute Plan to address problem: Disease education conducted, care plan discussed, diagnosis discussed, poor prognosis discussed. Patient daughter Emy Chambers informed of patient prog nosis. Patient is DNR. Patient daughter elects to have medical therapy at this time. Patient daughter made aware that patient may not tolerate therapy and current therapy may hasten patient demise. Patient daughter acknowledges understanding instructions patient daughter acknowledges understanding and agreement with current care plan. +30 minutes. (13)DVT prophylaxis Current Visit: Yes Status: Acute Plan to address problem: SCD to bilateral lower extremities while in bed Hospitalist Physical - Constitutional Vitals: Temp Pulse Resp BP Pulse Ox 97.1 F L 70 20 107/29 96 01/29/21 23:49 01/29/21 23:49 01/29/21 23:49 01/29/21 23:49 01/30/21 10:00 General appearance: Present: mild distress Results - Labs CBC & Chem 7: 01/30/21 08:09 01/30/21 08:09 Labs: Laboratory Last Values WBC 21.2 K/mm3 (4.5-11.0) H 01/30/21 08:09 RBC 2.34 M/mm3 (3.65-5.03) L 01/30/21 08:09 Hgb 7.5 gm/dl (10.1-14.3) L 01/30/21 08:09 Hct 26.5 % (30.3-42.9) L 01/30/21 08:09 MCV 113 fl (79-97) H 01/30/21 08:09 MCH 32 pg (28-32) 01/30/21 08:09 MCHC 28 % (30-34) L 01/30/21 08:09 RDW 25.3 % (13.2-15.2) H 01/30/21 08:09 Plt Count 84 K/mm3 (140-440) L 01/30/21 08:09 Lymph % (Auto) Marble Cleaner 01/30/21 08:09 [place] % (Auto) Marble Cleaner 01/30/21 08:09 Eos % (Auto) Marble Cleaner 01/30/21 08:09 Baso % (Auto) Marble Cleaner 01/30/21 08:09 Lymph # (Auto) Marble Cleaner 01/30/21 08:09 [place] # (Auto) Marble Cleaner 01/30/21 08:09 Eos # (Auto) Marble Cleaner 01/30/21 08:09 Baso # (Auto) Marble Cleaner 01/30/21 08:09 Add Manual Diff Complete 01/30/21 08:09 Total Counted 100 01/30/21 08:09 Seg Neutrophils % Marble Cleaner 01/30/21 08:09 Seg Neuts % (Manual) 71.0 % (40.0-70.0) H 01/30/21 08:09 Band Neutrophils % 10.0 % 01/30/21 08:09 Lymphocytes % (Manual) 9.0 % (13.4-35.0) L 01/30/21 08:09 Reactive Lymphs % (Man) 1.0 % 01/30/21 08:09 Monocytes % (Manual) 4.0 % (0.0-7.3) 01/27/21 18:10 Eosinophils % (Manual) 1.0 % (0.0-4.3) 01/30/21 08:09 Basophils % (Manual) 0.5 % (0.0-1.8) 01/27/21 18:10 Metamyelocytes % 7.0 % 01/30/21 08:09 Myelocytes % 1.0 % 01/30/21 08:09 Nucleated RBC % 1.0 % (0.0-0.9) H 01/30/21 08:09 Seg Neutrophils # Marble Cleaner 01/30/21 08:09 Seg Neutrophils # Man 15.1 K/mm3 (1.8-7.7) H 01/30/21 08:09 Band Neutrophils # 2.1 K/mm3 01/30/21 08:09 Lymphocytes # (Manual) 1.9 K/mm3 (1.2-5.4) 01/30/21 08:09 Abs React Lymphs (Man) 0.2 K/mm3 01/30/21 08:09 Monocytes # (Manual) 0.0 K/mm3 (0.0-0.8) 01/30/21 08:09 Eosinophils # (Manual) 0.2 K/mm3 (0.0-0.4) 01/30/21 08:09 Basophils # (Manual) 0.0 K/mm3 (0.0-0.1) 01/30/21 08:09 Metamyelocytes # 1.5 K/mm3 01/30/21 08:09 Myelocytes # 0.2 K/mm3 01/30/21 08:09 Promyelocytes # 0.0 K/mm3 01/30/21 08:09 Blast Cells # 0.0 K/mm3 01/30/21 08:09 WBC Morphology Not Reportable 01/30/21 08:09 Hypersegmented Neuts Not Reportable 01/30/21 08:09 Hyposegmented Neuts Not Reportable 01/30/21 08:09 Hypogranular Neuts Not Reportable 01/30/21 08:09 Smudge Cells Not Reportable 01/30/21 08:09 Toxic Granulation Not Reportable 01/30/21 08:09 Toxic Vacuolation Not Reportable 01/30/21 08:09 Dohle Bodies Not Reportable 01/30/21 08:09 Pelger-Huet Anomaly Not Reportable 01/30/21 08:09 Francisco J Rods Not Reportable 01/30/21 08:09 Platelet Estimate Consistent w auto 01/30/21 08:09 Clumped Platelets Not Reportable 01/30/21 08:09 Plt Clumps, EDTA Not Reportable 01/30/21 08:09 Large Platelets Not Reportable 01/30/21 08:09 Giant Platelets Not Reportable 01/30/21 08:09 Platelet Satelliting Not Reportable 01/30/21 08:09 Plt Morphology Comment Not Reportable 01/30/21 08:09 RBC Morphology Not Reportable 01/30/21 08:09 Dimorphic RBCs Not Reportable 01/30/21 08:09 Polychromasia Not Reportable 01/30/21 08:09 Hypochromasia Not Reportable 01/30/21 08:09 Poikilocytosis Not Reportable 01/30/21 08:09 Anisocytosis 2+ 01/30/21 08:09 Microcytosis Not Reportable 01/30/21 08:09 Macrocytosis 1+ 01/30/21 08:09 Spherocytes Not Reportable 01/30/21 08:09 Pappenheimer Bodies Not Reportable 01/30/21 08:09 Sickle Cells Not Reportable 01/30/21 08:09 Target Cells Not Reportable 01/30/21 08:09 Tear Drop Cells Not Reportable 01/30/21 08:09 Ovalocytes Not Reportable 01/30/21 08:09 Helmet Cells Not Reportable 01/30/21 08:09 [place] Bodies Not Reportable 01/30/21 08:09 [place] Rings Not Reportable 01/30/21 08:09 [place] Cells 1+ 01/30/21 08:09 Bite Cells Not Reportable 01/30/21 08:09 Crenated Cell Not Reportable 01/30/21 08:09 Elliptocytes Not Reportable 01/30/21 08:09 Acanthocytes (Spur) Not Reportable 01/30/21 08:09 Rouleaux Not Reportable 01/30/21 08:09 Hemoglobin C Crystals Not Reportable 01/30/21 08:09 Schistocytes Not Reportable 01/30/21 08:09 Malaria parasites Not Reportable 01/30/21 08:09 Garry Bodies Not Reportable 01/30/21 08:09 Hem Pathologist Commnt No 01/30/21 08:09 Sodium 145 mmol/L (137-145) 01/30/21 08:09 Potassium 3.9 mmol/L (3.6-5.0) 01/30/21 08:09 Chloride 114.0 mmol/L (98-107) H 01/30/21 08:09 Carbon Dioxide 13 mmol/L (22-30) L D 01/30/21 08:09 Anion Gap 22 mmol/L 01/30/21 08:09 BUN 60 mg/dL (7-17) H 01/30/21 08:09 Creatinine 1.3 mg/dL (0.6-1.2) H 01/30/21 08:09 Estimated GFR 39 ml/min 01/30/21 08:09 BUN/Creatinine Ratio 46 % 01/30/21 08:09 Glucose 115 mg/dL (65-100) H 01/30/21 08:09 Lactic Acid 1.30 mmol/L (0.7-2.0) 01/27/21 18:10 Calcium 7.7 mg/dL (8.4-10.2) L 01/30/21 08:09 Total Bilirubin 0.20 mg/dL (0.1-1.2) 01/30/21 08:09 AST 459 units/L (5-40) H 01/30/21 08:09 ALT 100 units/L (7-56) H 01/30/21 08:09 Alkaline Phosphatase 620 units/L (35-129) H 01/30/21 08:09 Total Protein 4.7 g/dL (6.3-8.2) L 01/30/21 08:09 Albumin 2.5 g/dL (3.9-5) L 01/30/21 08:09 Albumin/Globulin Ratio 1.1 % 01/30/21 08:09 Coronavirus (PCR) Negative (Negative) 01/27/21 08:30 Blood Type O POSITIVE 01/26/21 19:56 Antibody Screen Negative 01/26/21 19:56 Microbiology: Microbiology 01/26/21 18:28 Peripheral/Venous Blood Culture - Preliminary NO GROWTH AFTER 72 HOURS 01/26/21 18:20 Peripheral/Venous Blood Culture - Preliminary NO GROWTH AFTER 72 HOURS Sorto/IV: Voiding Method Incontinent Active Medications - Current Medications Current Medications: Generic Name Dose Route Start Last Admin Trade Name Freq PRN Reason Stop Dose Admin Acetaminophen 650 mg 01/26/21 18:10 Acetaminophen 325 Mg Tab PO Q4H PRN Pain MILD(1-3)/Fever >100.5/LUCAS Albuterol 2.5 mg 01/26/21 18:10 Albuterol 2.5 Mg/3 Ml Nebu IH Q4HRT PRN Shortness Of Breath Lipase/Protease/Amylase 1 each 01/27/21 11:00 Lipase 10,500/Protease 25,000/Amylase 43,750 (Units) Dr Joseph FEEDTUBE PRN PRN For Clogged Feeding Tube Ascorbic Acid 500 mg 01/26/21 22:00 01/30/21 09:30 Ascorbic Acid 500 Mg Tab PO 500 mg BID VINOD Administration Cholecalciferol 1,000 unit 01/27/21 10:00 01/29/21 12:20 Cholecalciferol (Vit D3) 1000 Unit (25 Mcg) Tab PO Not Given QDAY VINOD Hydromorphone HCl 0.25 mg 01/26/21 18:10 Hydromorphone 1 Mg/1 Ml Inj IV Q4H PRN Pain, Moderate (4-6) Hydromorphone HCl 0.5 mg 01/26/21 18:10 Hydromorphone 1 Mg/1 Ml Inj IV Q24H PRN Pain , Severe (7-10) Ceftriaxone Sodium 2 gm in 100 mls @ 200 mls/hr 01/26/21 20:00 01/30/21 05:04 Rocephin/Ns 2 Gm/100 Ml IV 01/30/21 20:29 Infused Q24H VINOD Infusion Protocol Azithromycin 500 mg in 250 mls @ 250 mls/hr 01/26/21 20:00 01/30/21 05:04 Zithromax/Ns IV 01/30/21 20:59 Infused Q24H VINOD Infusion Protocol Dextrose 1,000 mls @ 75 mls/hr 01/28/21 13:00 01/30/21 05:04 D5w IV Infused DIRECT VINOD Infusion Ondansetron HCl 4 mg 01/26/21 18:10 Ondansetron 4 Mg/2 Ml Inj IV Q8H PRN Nausea And Vomiting Oxycodone/Acetaminophen 1 tab 01/26/21 18:10 Oxycodone /Acetaminophen 5-325mg Tab PO Q12H PRN Pain, Moderate (4-6) Simple Syrup 15 ml 01/27/21 11:00 Simple Syrup 15 Ml FEEDTUBE PRN PRN Hypoglycemia Simple Syrup 30 ml 01/27/21 11:00 Simple Syrup 15 Ml FEEDTUBE PRN PRN Hypoglycemia Sodium Bicarbonate 325 mg 01/27/21 11:00 Sodium Bicarbonate 325 Mg Tab FEEDTUBE PRN PRN For Clogged Feeding Tube Sodium Chloride 10 ml 01/26/21 22:00 01/30/21 09:28 Sodium Chloride 0.9% 10 Ml Flush Syringe IV 10 ml BID VINOD Administration Sodium Chloride 10 ml 01/26/21 18:10 Sodium Chloride 0.9% 10 Ml Flush Syringe IV PRN PRN LINE FLUSH Nutrition/Malnutrition Assess - Dietary Evaluation Nutrition/Malnutrition Findings: Nutrition Notes Start: 01/27/21 10:34 Freq: Status: Active Protocol: Document 01/27/21 10:34 (Rec: 01/27/21 10:49 [id number]) Nutrition Notes Need for Assessment generated from: MD Order,cartography/mapping technician,MST,Low BMI Initial or Follow up Assessment Current Diagnosis Acute Kidney Injury,Sepsis, Malnutrition Other Pertinent Diagnosis FTT, multiple myeloma Current Diet NPO Labs/Tests Na 152 K 5.8 BUN 38 Cr 1.5 BG 58 Pertinent Medications Solu Medrol Zinc Vitamin C Height 5 ft 3 in Weight 38.9 kg [place] Body Weight (kg) 52.27 BMI 15.2 Weight Status Underweight Subjective/Other Information MD consult for TF. RN screen for skin risk and MST. Screen for low BMI. Pt with sacral pressure ulcer. Waiting for STAIN MAKER eval. Burn Absent Trauma Absent Minimum of two criteria Yes Body Fat Depletion Mild depletion (non-severe) Muscle Mass Mild Depletion (non-severe) #2 Nutrition Diagnosis Increased nutrient needs ( specify in comment below) Comments: protein Etiology wound healing As Evidenced by Signs and Symptoms pt with sacral pressure ulcer #1 Nutrition Diagnosis Malnutrition Etiology advanced age, chronic disease As Evidenced by Signs and Symptoms muscle and fat wasting Is patient on ventilator? No Is Patient Ambulatory and/or Out of Bed No REE-([place]-confined to bed) 971.448 Kcal/Kg value to use for calculation 31 Approximate Energy Requirements Using 1206 kcal/Kg Calculation Used for Recommendations Kcal/kg Additional Notes Protein: (1.25-1.5g/kg) 48-58g Nutrition Intervention Change Diet Order: advance per STAIN MAKER Nutrition Support: Nepro 1.8 at 28 ml/hr Flush 125 ml q4h or per MD Kcal 1,209 Protein (gm) 54 Fluid (mL) 489 Goal #1 Meet 100% of protein and energy needs via TF Goal #2 Wound healing Goal #3 Weight gain/maintenance Anticipated Discharge Needs: Unable to determine at this time Follow-Up By: 01/30/21 Additional Comments F/u: TF start and tolerance
--- NOTE | 2021-01-30 14:38 | Progress Note ---
Assessment and Plan Impression: * Acute kidney injury secondary to prerenal azotemia due to dehydration * Sepsis * Bilateral PNA (COVID PCR negative) * Hyperkalemia * Hypernatremia * Decubitus ulcer * Hx of Multiple myeloma Plan: * Check ABG * Ordered sodium bicarb push * Start sodium bicarb infusion * OK to continue D5W as well for now * Keep MAP>65 * Hyperkalemia resolved w/ medical management * Abx per ID * Dose medications for renal function * Avoid potential nephrotoxins * Strict I/O * AM labs Subjective Date of service: 01/30/21 Principal diagnosis: Sepsis Interval history: Nursing, interdisciplinary and consult notes were reviewed Vitals, input and output, medications and labs were reviewed Mental status remains unchanged Objective - Exam Narrative Exam: General: No acute distress HEENT: Oral mucosa moist Neck: Supple, no JVD Chest: Clear to auscultation bilaterally Heart: RRR, S1 and S2, no pericardial rub Abdomen: Soft, nontender, no renal bruit Extremity: No peripheral cyanosis, edema Neurological: Alert, awake, no asterixis Dermatology: No skin rash Psych: No agitation Musculoskeletal: No joint effusion - Vital Signs Vital signs: Vital Signs - 12hr 01/30/21 01/30/21 10:00 11:00 Temperature 97.9 F Pulse Rate 82 Respiratory 18 Rate Blood Pressure 78/41 [Right] O2 Sat by Pulse 96 75 L Oximetry - Lab 01/30/21 08:09 01/30/21 08:09 Most recent lab results Calcium 7.7 mg/dL (8.4-10.2) L 01/30/21 08:09 Medications & Allergies - Medications Allergies/Adverse Reactions: Allergies No Known Allergies Allergy (Verified 01/26/21 16:32) Home Medications: Home Medications Medication Instructions Recorded Confirmed Last Taken Type No Known Home Medications [No 01/28/21 01/28/21 Unknown History Reported Home Medications] Active Medications: Generic Name Dose Route Start Last Admin Trade Name Freq PRN Reason Stop Dose Admin Acetaminophen 650 mg 01/26/21 18:10 Acetaminophen 325 Mg Tab PO Q4H PRN Pain MILD(1-3)/Fever >100.5/LUCAS Albuterol 2.5 mg 01/26/21 18:10 Albuterol 2.5 Mg/3 Ml Nebu IH Q4HRT PRN Shortness Of Breath Lipase/Protease/Amylase 1 each 01/27/21 11:00 Lipase 10,500/Protease 25,000/Amylase 43,750 (Units) Dr Joseph FEEDTUBE PRN PRN For Clogged Feeding Tube Ascorbic Acid 500 mg 01/26/21 22:00 01/30/21 09:30 Ascorbic Acid 500 Mg Tab PO 500 mg BID VINOD Administration Cholecalciferol 1,000 unit 01/27/21 10:00 01/29/21 12:20 Cholecalciferol (Vit D3) 1000 Unit (25 Mcg) Tab PO Not Given QDAY VINOD Hydromorphone HCl 0.25 mg 01/26/21 18:10 Hydromorphone 1 Mg/1 Ml Inj IV Q4H PRN Pain, Moderate (4-6) Hydromorphone HCl 0.5 mg 01/26/21 18:10 Hydromorphone 1 Mg/1 Ml Inj IV Q24H PRN Pain , Severe (7-10) Ceftriaxone Sodium 2 gm in 100 mls @ 200 mls/hr 01/26/21 20:00 01/30/21 05:04 Rocephin/Ns 2 Gm/100 Ml IV 01/30/21 20:29 Infused Q24H [facility] Infusion Protocol Azithromycin 500 mg in 250 mls @ 250 mls/hr 01/26/21 20:00 01/30/21 05:04 Zithromax/Ns IV 01/30/21 20:59 Infused Q24H [facility] Infusion Protocol Dextrose 1,000 mls @ 75 mls/hr 01/28/21 13:00 01/30/21 05:04 D5w IV Infused DIRECT VINOD Infusion Ondansetron HCl 4 mg 01/26/21 18:10 Ondansetron 4 Mg/2 Ml Inj IV Q8H PRN Nausea And Vomiting Oxycodone/Acetaminophen 1 tab 01/26/21 18:10 Oxycodone /Acetaminophen 5-325mg Tab PO Q12H PRN Pain, Moderate (4-6) Simple Syrup 15 ml 01/27/21 11:00 Simple Syrup 15 Ml FEEDTUBE PRN PRN Hypoglycemia Simple Syrup 30 ml 01/27/21 11:00 Simple Syrup 15 Ml FEEDTUBE PRN PRN Hypoglycemia Sodium Bicarbonate 325 mg 01/27/21 11:00 Sodium Bicarbonate 325 Mg Tab FEEDTUBE PRN PRN For Clogged Feeding Tube Sodium Chloride 10 ml 01/26/21 22:00 01/30/21 09:28 Sodium Chloride 0.9% 10 Ml Flush Syringe IV 10 ml BID VINOD Administration Sodium Chloride 10 ml 01/26/21 18:10 Sodium Chloride 0.9% 10 Ml Flush Syringe IV PRN PRN LINE FLUSH
[2021-01-30] MEDS ORDERED: SODIUM BICARB 8.4% 50 MEQ/50 ML SYRINGE IV NR (15:00)
[2021-01-30] MEDS: SODIUM BICARBONATE 100 MEQ in WATER FOR INJECTION (PF) 1,000 ML IV SCH (15:41)
--- NOTE | 2021-01-30 16:42 | Progress Note ---
Assessment and Plan Cultures: Blood cultures no growth today Assessment: 85-year-old female with history of dementia, cementation, sacral decubitus ulcer, admitted on 01/26/2021 secondary to a week history of decreased responsiveness and generalized weakness associated with shortness of breath: #Sepsis: persistent leukocytosis; likely due to bilateral pneumonia. #Bilateral pneumonia: SARS-CoV-2 PCR negative. Aspiration?. #SUDHIR: Renally adjust antibiotics. Not better #Bone lesions: ?MM #AMS: not better. Recommendations: Stop ceftriaxone and azithromycin Start zosyn Swallowing eval Follow blood cultures Very guarded prognosis Will follow. Ariana López MD Infectious Diseases Train Control Electronic Technician [facility] ([facility]) M [phone] O [phone] Subjective Date of service: 01/30/21 Principal diagnosis: Sepsis Interval history: Non verbal position Objective - Exam Narrative Exam: General appearance: somnolent cachectic Eyes: anicteric sclerae, moist conjunctivae; no lid-lag; PERRLA HENT: Normocephalic, Atraumatic; normal external ears, nares open, oropharynx limited Neck: supple, tracheal midline, no JVD Lungs: diminished bs CV: RRR no murmur Abdomen: Soft, non tender Extremities: cachectic Skin: No rash. Psych: Neuro: somnolent - Constitutional Vitals: Vital Signs Temp Pulse Resp BP Pulse Ox 97.9 F 82 18 78/41 75 L 01/30/21 11:00 01/30/21 11:00 01/30/21 11:00 01/30/21 11:00 01/30/21 11:00 Temperature -Last 24 Hours Temperature 97.9 F Temperature 97.1 F - Labs CBC & Chem 7: 01/30/21 08:09 01/30/21 08:09 Labs: Abnormal lab results 01/29/21 01/30/21 01/30/21 Range/Units 18:41 08:09 08:09 WBC 21.2 H (4.5-11.0) K/mm3 RBC 2.34 L (3.65-5.03) M/mm3 Hgb 7.5 L (10.1-14.3) gm/dl Hct 26.5 L (30.3-42.9) % MCV 113 H (79-97) fl MCHC 28 L (30-34) % RDW 25.3 H (13.2-15.2) % Plt Count 84 L (140-440) K/mm3 Seg Neuts % (Manual) 71.0 H (40.0-70.0) % Lymphocytes % (Manual) 9.0 L (13.4-35.0) % Nucleated RBC % 1.0 H (0.0-0.9) % Seg Neutrophils # Man 15.1 H (1.8-7.7) K/mm3 Sodium 146 H (137-145) mmol/L Chloride 113.5 H 114.0 H (98-107) mmol/L Carbon Dioxide 13 L D (22-30) mmol/L BUN 60 H 60 H (7-17) mg/dL Creatinine 1.4 H 1.3 H (0.6-1.2) mg/dL Glucose 158 H 115 H (65-100) mg/dL Calcium 7.6 L 7.7 L (8.4-10.2) mg/dL AST 459 H (5-40) units/L ALT 100 H (7-56) units/L Alkaline Phosphatase 620 H (35-129) units/L Total Protein 4.7 L (6.3-8.2) g/dL Albumin 2.5 L (3.9-5) g/dL
[2021-01-30] MEDS ORDERED: PIPERACILLIN/TAZOBACTAM 3.375 3.375 GM/50 ML BAG IV SCH (17:00)
[2021-01-30 18:19] LABS: ABG Base Excess -4.1 mmol/L (-2.0-3.0); ABG HCO3 20.2 mmol/L (20.0-26.0); ABG Methemoglobin 0.1 % (0.0-1.5); ABG Oxygen Saturation 98.3 % (95.0-99.0); ABG PCO2 32.7 mm Hg; ABG PH 7.409 pH Units (7.350-7.450); ABG PO2 119.3 mm Hg (80.0-90.0)
[2021-01-30] MEDS: PIPERACIL-TAZO 2.25 GM/50 ML 2.25 GM/50 ML BAG IV SCH (19:28)
[2021-01-31] MEDS: SODIUM BICARBONATE 650 MG TAB PO SCH ×5 (01:34→22:47)
[2021-01-31] MEDS: PIPERACIL-TAZO 2.25 GM/50 ML 2.25 GM/50 ML BAG IV SCH ×3 (01:43→16:23)
[2021-01-31] MEDS: ASCORBIC ACID 500 MG TAB PO SCH ×3 (02:08→22:46)
[2021-01-31 09:32] LABS: Hematocrit 20.6 % (30.3-42.9); Hemoglobin 6.8 gm/dl (10.1-14.3); Mean Corpuscular HGB Conc 33 % (30-34); Mean Corpuscular Volume 96 fl (79-97); Platelet Count 106 K/mm3 (140-440); Red Blood Count 2.15 M/mm3 (3.65-5.03)
--- NOTE | 2021-01-31 09:37 | Consultation ---
History of Present Illness Consult date: 01/31/21 Reason for consult: wound care - History of present illness History of present illness: 85 year old female admitted with AMS from nursing facility. She is found to have bilateral pneumonia and pressure ulcers on her bilateral hip trocanters and right foot. General surgery being consulted for wound evaluation. Past History Past Medical History: other (failure to thrive) Past Surgical History: No surgical history, Other (Reviewed) Social history: single. denies: smoking, alcohol abuse Family history: hypertension Medications and Allergies Allergies Allergy/AdvReac Type Severity Reaction Status Date / Time No Known Allergies Allergy Verified 01/26/21 16:32 Home Medications Medication Instructions Recorded Confirmed Last Taken Type No Known Home Medications [No 01/28/21 01/28/21 Unknown History Reported Home Medications] Active Meds: Active Medications Acetaminophen (Acetaminophen 325 Mg Tab) 650 mg PO Q4H PRN PRN Reason: Pain MILD(1-3)/Fever >100.5/LUCAS Albuterol (Albuterol 2.5 Mg/3 Ml Nebu) 2.5 mg IH Q4HRT PRN PRN Reason: Shortness Of Breath Lipase/Protease/Amylase (Lipase 10,500/Protease 25,000/Amylase 43,750 (Units) Dr Joseph) 1 each FEEDTUBE PRN PRN PRN Reason: For Clogged Feeding Tube Ascorbic Acid (Ascorbic Acid 500 Mg Tab) 500 mg PO BID [facility] Last Admin: 01/31/21 02:08 Dose: 500 mg Documented by: Cholecalciferol (Cholecalciferol (Vit D3) 1000 Unit (25 Mcg) Tab) 1,000 unit PO QDAY [facility] Last Admin: 01/30/21 09:30 Dose: 1,000 unit Documented by: Hydromorphone HCl (Hydromorphone 1 Mg/1 Ml Inj) 0.25 mg IV Q4H PRN PRN Reason: Pain, Moderate (4-6) Hydromorphone HCl (Hydromorphone 1 Mg/1 Ml Inj) 0.5 mg IV Q24H PRN PRN Reason: Pain , Severe (7-10) Dextrose (D5w) 1,000 mls @ 75 mls/hr IV DIRECT [facility] Last Infusion: 01/30/21 05:04 Dose: Infused Documented by: Sodium Bicarbonate 100 meq/ (Sterile Water) 1,100 mls @ 100 mls/hr IV DIRECT [facility] Stop: 02/04/21 02:59 Last Admin: 01/30/21 15:41 Dose: 100 mls/hr Documented by: Piperacillin Sod/Tazobactam Sod (Zosyn/Ns 2.25 Gm/50ml) 2.25 gm in 50 mls @ 100 mls/hr IV Q8H [facility] Last Admin: 01/31/21 08:25 Dose: 100 mls/hr Documented by: Ondansetron HCl (Ondansetron 4 Mg/2 Ml Inj) 4 mg IV Q8H PRN PRN Reason: Nausea And Vomiting Oxycodone/Acetaminophen (Oxycodone /Acetaminophen 5-325mg Tab) 1 tab PO Q12H PRN PRN Reason: Pain, Moderate (4-6) Simple Syrup (Simple Syrup 15 Ml) 15 ml FEEDTUBE PRN PRN PRN Reason: Hypoglycemia Simple Syrup (Simple Syrup 15 Ml) 30 ml FEEDTUBE PRN PRN PRN Reason: Hypoglycemia Sodium Bicarbonate (Sodium Bicarbonate 325 Mg Tab) 325 mg FEEDTUBE PRN PRN PRN Reason: For Clogged Feeding Tube Sodium Bicarbonate (Sodium Bicarbonate 650 Mg Tab) 1,300 mg PO TID [facility] Last Admin: 01/31/21 07:38 Dose: 1,300 mg Documented by: Sodium Chloride (Sodium Chloride 0.9% 10 Ml Flush Syringe) 10 ml IV BID [facility] Last Admin: 01/31/21 01:37 Dose: 10 ml Documented by: Sodium Chloride (Sodium Chloride 0.9% 10 Ml Flush Syringe) 10 ml IV PRN PRN PRN Reason: LINE FLUSH Review of Systems ROS unobtainable: due to mental status Exam Vital Signs Temp Pulse Resp BP Pulse Ox 98 F 57 L 16 115/57 97 01/26/21 16:32 01/26/21 16:32 01/26/21 16:32 01/26/21 16:32 01/26/21 16:32 - General physical appearance Positive: no distress, no pain, cathetic, chronically ill - Eyes Negative: icteric - Respiratory Positive: normal expansion, normal respiratory effort - Cardiovascular Heart Sounds: Present: S1 & S2 - Extremities Extremities: abnormal Extremity abnormal: other (contracted, right medial foot at head of 1st metatarsal with purulent drainage and desquamation. ~3x2cm. Right trocanter with 3x7cm wound with skin septation into two openings. no drainage, odor, erythema or swelling. visible bone and muscle.) Results - Labs 01/31/21 09:03 01/31/21 09:03 Abnormal lab results 01/30/21 01/30/21 01/30/21 Range/Units 08:09 08:09 18:04 Seg Neuts % (Manual) 71.0 H (40.0-70.0) % Lymphocytes % (Manual) 9.0 L (13.4-35.0) % Nucleated RBC % 1.0 H (0.0-0.9) % Seg Neutrophils # Man 15.1 H (1.8-7.7) K/mm3 ABG pO2 119.3 H (80.0-90.0) mm Hg ABG Base Excess -4.1 L (-2.0-3.0) mmol/L ABG Hemoglobin 5.9 L (12.0-16.0) gm/dl Carbon Dioxide 13 L D (22-30) mmol/L Diabetes panel 01/30/21 Range/Units 08:09 Carbon Dioxide 13 L D (22-30) mmol/L Pituitary panel 01/30/21 Range/Units 08:09 Carbon Dioxide 13 L D (22-30) mmol/L Adrenal panel 01/30/21 Range/Units 08:09 Carbon Dioxide 13 L D (22-30) mmol/L Assessment and Plan 85 year old female with poor nutrition and failure to thrive who is bed bound. Afebrile and stable with down trending leukocytosis. Right hip wound may benefit from superficial excisional debridement, not clinically infected. Right foot with purulent drainage. Appears to be contained to local area. Will do local excisional debridement at bedside. Obtained consent from daughter. If more aggressive debridement needs to be done will schedule for OR at a later date. Plan: continue- 1. Offloading 2. Continue empiric abx. ID consulted. 3. prn pain control 4. DVT ppx
[2021-01-31 09:38] LABS: Red Cell Distribution Width 23.7 % (13.2-15.2)
[2021-01-31] MEDS: CHOLECALCIFEROL (VIT D3) 1000 UNIT (25 mcg) TAB PO SCH (10:46)
[2021-01-31 11:03] LABS: Albumin 2.5 g/dL (3.9-5); Calcium 7.7 mg/dL (8.4-10.2)
--- NOTE | 2021-01-31 11:40 | Progress Note ---
Assessment and Plan Impression: * Acute kidney injury secondary to prerenal azotemia due to dehydration * Sepsis * Bilateral PNA (COVID PCR negative) * Hyperkalemia * Hypernatremia * Decubitus ulcer * Hx of Multiple myeloma Plan: * S/p sodium bicarb push * Continue sodium bicarb infusion * OK to continue D5W as well for now * Keep MAP>65 * Hyperkalemia resolved w/ medical management * Abx per ID * Dose medications for renal function * Avoid potential nephrotoxins * Strict I/O * AM labs * Surgery consult pending Subjective Date of service: 01/31/21 Principal diagnosis: Sepsis Interval history: Nursing, interdisciplinary and consult notes were reviewed Vitals, input and output, medications and labs were reviewed Soft pressures noted Objective - Exam Narrative Exam: General: No acute distress HEENT: Oral mucosa moist Neck: Supple, no JVD Chest: Clear to auscultation bilaterally Heart: RRR, S1 and S2, no pericardial rub Abdomen: Soft, nontender, no renal bruit Extremity: No peripheral cyanosis, edema Neurological: Alert, awake, no asterixis Dermatology: No skin rash Psych: No agitation Musculoskeletal: No joint effusion - Vital Signs Vital signs: Vital Signs - 12hr 01/31/21 08:26 Respiratory 20 Rate O2 Sat by Pulse 90 Oximetry - Lab 01/31/21 09:03 01/31/21 09:03 Most recent lab results ABG pH 7.409 pH Units (7.350-7.450) 01/30/21 18:04 ABG pCO2 32.7 mm Hg 01/30/21 18:04 ABG pO2 119.3 mm Hg (80.0-90.0) H 01/30/21 18:04 ABG HCO3 20.2 mmol/L (20.0-26.0) 01/30/21 18:04 ABG O2 Saturation 98.3 % (95.0-99.0) 01/30/21 18:04 Calcium 7.7 mg/dL (8.4-10.2) L 01/31/21 09:03 Medications & Allergies - Medications Allergies/Adverse Reactions: Allergies No Known Allergies Allergy (Verified 01/26/21 16:32) Home Medications: Home Medications Medication Instructions Recorded Confirmed Last Taken Type No Known Home Medications [No 01/28/21 01/28/21 Unknown History Reported Home Medications] Active Medications: Generic Name Dose Route Start Last Admin Trade Name Freq PRN Reason Stop Dose Admin Acetaminophen 650 mg 01/26/21 18:10 Acetaminophen 325 Mg Tab PO Q4H PRN Pain MILD(1-3)/Fever >100.5/LUCAS Albuterol 2.5 mg 01/26/21 18:10 Albuterol 2.5 Mg/3 Ml Nebu IH Q4HRT PRN Shortness Of Breath Lipase/Protease/Amylase 1 each 01/27/21 11:00 Lipase 10,500/Protease 25,000/Amylase 43,750 (Units) Dr Joseph FEEDTUBE PRN PRN For Clogged Feeding Tube Ascorbic Acid 500 mg 01/26/21 22:00 01/31/21 10:45 Ascorbic Acid 500 Mg Tab PO 500 mg BID [facility]INOD Administration Cholecalciferol 1,000 unit 01/27/21 10:00 01/31/21 10:46 Cholecalciferol (Vit D3) 1000 Unit (25 Mcg) Tab PO 1,000 unit QDAY [facility] Administration Hydromorphone HCl 0.25 mg 01/26/21 18:10 Hydromorphone 1 Mg/1 Ml Inj IV Q4H PRN Pain, Moderate (4-6) Hydromorphone HCl 0.5 mg 01/26/21 18:10 Hydromorphone 1 Mg/1 Ml Inj IV Q24H PRN Pain , Severe (7-10) Dextrose 1,000 mls @ 75 mls/hr 01/28/21 13:00 01/30/21 05:04 D5w IV Infused DIRECT [facility] Infusion Sodium Bicarbonate 100 meq/ 1,100 mls @ 100 mls/hr 01/30/21 16:00 01/30/21 15:41 Sterile Water IV 02/04/21 02:59 100 mls/hr DIRECT [facility] Administration Piperacillin Sod/Tazobactam Sod 2.25 gm in 50 mls @ 100 mls/hr 01/30/21 17:00 01/31/21 08:25 Zosyn/Ns 2.25 Gm/50ml IV 100 mls/hr Q8H [facility] Administration Ondansetron HCl 4 mg 01/26/21 18:10 Ondansetron 4 Mg/2 Ml Inj IV Q8H PRN Nausea And Vomiting Oxycodone/Acetaminophen 1 tab 01/26/21 18:10 Oxycodone /Acetaminophen 5-325mg Tab PO Q12H PRN Pain, Moderate (4-6) Simple Syrup 15 ml 01/27/21 11:00 Simple Syrup 15 Ml FEEDTUBE PRN PRN Hypoglycemia Simple Syrup 30 ml 01/27/21 11:00 Simple Syrup 15 Ml FEEDTUBE PRN PRN Hypoglycemia Sodium Bicarbonate 325 mg 01/27/21 11:00 Sodium Bicarbonate 325 Mg Tab FEEDTUBE PRN PRN For Clogged Feeding Tube Sodium Bicarbonate 1,300 mg 01/30/21 20:00 01/31/21 07:38 Sodium Bicarbonate 650 Mg Tab PO 1,300 mg TID [facility] Administration Sodium Chloride 10 ml 01/26/21 22:00 01/31/21 10:46 Sodium Chloride 0.9% 10 Ml Flush Syringe IV 10 ml BID [facility] Administration Sodium Chloride 10 ml 01/26/21 18:10 Sodium Chloride 0.9% 10 Ml Flush Syringe IV PRN PRN LINE FLUSH
--- NOTE | 2021-01-31 13:06 | Progress Note ---
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 Patient has diminished cognition at the time my evaluation and is unable to provide history. Patient history provided by EMS staff, ED staff, shelter facility staff, as well as patient daughter who was made available by telephone for interview. As per daughter she was notified by shelter facility staff today and informed that the patient "was getting sick". The patient has experienced decreased responsiveness as well as increased weakness over the past 1 week with acute worsening of symptoms over the past 1 day. EMS was notified and upon arrival the patient was found to be in distress and was subsequently transported to [facility] for further care and evaluation of the aforementioned symptoms. The patient was seen and evaluated in the emergency department. All lab and imaging studies reviewed. Patient was found to have a pulse oximetry of 85% on room air which is consistent with acute hypoxemic respiratory failure. A chest x-ray revealed bilateral pneumonia. The patient was also found to have sepsis, acute kidney injury, as well as severe hypernatremia. The patient was admitted to medical floor and initiated on sepsis protocol, pneumonia protocol, as well as coronavirus protocol. No further history is obtainable. The patient has diminished cognition but has a positive gag reflex and is able to protect her airway without difficulty the time my evaluation. Advanced care planning conducted in ED. Hospital course to date 01/27: Patient seen and examined, very lethargic, and appears deconditioned and dry. - ID and Nephrology consult - Gentle hydration while awaiting COVID testing. - Monitor Platelet level - Follow cultures. - Q2H turns 01/28: Patient seen and examined unable to get Dobbhoff yesterday the nurse yesterday said that he was able to tolerate pured diet as recommended by speech therapist. Although today's nurse reports that the patient is not tolerating so we will try the Dobbhoff again. We will continue to reevaluate and on my examination he actually opens her mouth and responds to some questions recommended we try assistance with feeding again today. Renal function showing some improvement ID input appreciated continue antibiotics at this time. Leukocytosis still worse we will recheck. Assessment: 85-year-old female with history of dementia, cementation, sacral decubitus ulcer, admitted on 01/26/2021 secondary to a week history of decreased responsiveness and generalized weakness associated with shortness of breath 01/29/21 Patient is seen and examined. Patient is awake alert but demented. Patient pulled out the Dobbhoff tube. Will reinsert the Dobbhoff tube today and if possible start feeding. If needed will put the patient on restraint. Continue current management. Nutritional evaluation. Recheck CBC CMP in the morning. Nephrology follow-up. Assessment: 85-year-old female with history of dementia, cementation, sacral decubitus ulcer, admitted on 01/26/2021 secondary to a week history of decreased responsiveness and generalized weakness associated with shortness of breath: 01/30: Patient seen and examined, she is staill very leathrgic, tube feed is ongoing, unfortunately worsening metabolic acidosis. I spoke to the patients daughter and discussed overall medical condition, while they maintained DNR, they do not want comfort measure or hospice. I also advised that patient is having liver failure. Will further evaluate the liver Nephrology input appreciated. Will await Wound care evaluation and may need a surgical eval of the multiple wounds for possible debridement. Aspiration precautions Poor prognosis 01/31: Continues to be lethargic . Very frail . Surgery consulted for wound care evaluation. Prognosis remains poor. Bedside excision completed by surgery. ID consultation obtained. (1) Sepsis Current Visit: Yes Status: Acute Plan to address problem: Sepsis protocol: IV antibiotic therapy, IV fluid resuscitation therapy, serial lactic acid level, monitor urine output every shift, monitor fluid balance, maintain mean arterial pressure greater than equal 65, blood culture. (2) Suspected 2019 novel coronavirus infection Current Visit: Yes Status: Acute Plan to address problem: Coronavirus protocol: IV steroid therapy, IV antibiotic therapy, supplemental oxygen, pulse oximetry, contact precautions, isolation precautions, nebulizer therapy, vitamin C therapy, vitamin D therapy, zinc therapy, (3) Severe malnutrition Current Visit: Yes Status: Acute Plan to address problem: Dietary supplementation, supportive care. (4) Hypernatremia Current Visit: Yes Status: Acute Plan to address problem: IV fluid resuscitation therapy, BMP, repeat BMP in a.m. (5) Acute kidney injury (SUDHIR) with acute tubular necrosis (ATN) Current Visit: Yes Status: Acute Plan to address problem: BMP, IV fluid resuscitation therapy, repeat BMP in a.m. to monitor serum creatinine as well as GFR (6) Multiple myeloma Current Visit: Yes Status: Acute Qualifiers: Multiple myeloma remission status: unspecified Qualified Code(s): C90.00 - Multiple myeloma not having achieved remission Plan to address problem: Supportive care, lytic bone lesions on x-ray. Patient family informed. No intervention desired. (7) Bilateral pneumonia Current Visit: Yes Status: Acute Plan to address problem: Pneumonia protocol: Chest x-ray, CBC, CMP, supplemental oxygen, pulse oximetry, nebulizer therapy, blood culture. IV antibiotic therapy. (8) Multiple Pressure ulcer, Sacral Decubitus Ulcer (9) Anemia (10)Lactic Acidosis (11)Hyperkalemia (12) Advance care planning Current Visit: Yes Status: Acute Plan to address problem: Disease education conducted, care plan discussed, diagnosis discussed, poor prognosis discussed. Patient daughter Emy Chambers informed of patient prognosis. Patient is DNR. Patient daughter elects to have medical therapy at this time. Patient daughter made aware that patient may not tolerate therapy and current therapy may hasten patient demise. Patient daughter acknowledges understanding instructions patient daughter acknowledges understanding and agreement with current care plan. +30 minutes. (13)DVT prophylaxis Current Visit: Yes Status: Acute Plan to address problem: SCD to bilateral lower extremities while in bed History Interval history: Frail. non communicative. 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 Hospitalist Physical - Physical exam Narrative exam: Narrative exam: General appearance: Present: mild distress, contracted - EENT ENT: hearing decreased, other, dry mucus membrane - Neck Neck: Present: supple, normal ROM - Respiratory Respiratory effort: labored Respiratory: bilateral: diminished, rhonchi - Cardiovascular Rhythm: regular Heart Sounds: Present: S1 & S2 - Extremities Extremities: pulses symmetrical, No edema Extremity abnormal: ulceration Peripheral Pulses: abnormal (Capillary refill greater than 3.5 seconds) - Abdominal General gastrointestinal: Present: soft, non-tender, non-distended, normal bowel sounds Female genitourinary: Present: normal - Integumentary Integumentary: Present: multiple ecchymotic injury, clear, dry, clammy, decre ased turgor - Musculoskeletal Musculoskeletal: generalized weakness - Psychiatric Psychiatric: no appropriate mood/affect, no intact judgment & insight, no memory intact - Neurologic Neurologic: CNII-XII intact, moves all extremities, no gait normal - Constitutional Vitals: Temp Pulse Resp BP Pulse Ox 97.4 F L 64 20 80/50 90 01/30/21 23:02 01/30/21 23:02 01/31/21 08:26 01/30/21 23:02 01/31/21 08:26 General appearance: Present: mild distress Results - Labs CBC & Chem 7: 01/31/21 09:03 01/31/21 09:03 Labs: Laboratory Last Values WBC 18.0 K/mm3 (4.5-11.0) H 01/31/21 09:03 RBC 2.15 M/mm3 (3.65-5.03) L 01/31/21 09:03 Hgb 6.8 gm/dl (10.1-14.3) L 01/31/21 09:03 Hct 20.6 % (30.3-42.9) L 01/31/21 09:03 MCV 96 fl (79-97) 01/31/21 09:03 MCH 32 pg (28-32) 01/31/21 09:03 MCHC 33 % (30-34) 01/31/21 09:03 RDW 23.7 % (13.2-15.2) H 01/31/21 09:03 Plt Count 106 K/mm3 (140-440) L 01/31/21 09:03 Lymph % (Auto) Outside Salesman 01/30/21 08:09 Wells % (Auto) Outside Salesman 01/30/21 08:09 Eos % (Auto) Outside Salesman 01/30/21 08:09 Baso % (Auto) Outside Salesman 01/30/21 08:09 Lymph # (Auto) Outside Salesman 01/30/21 08:09 Wells # (Auto) Outside Salesman 01/30/21 08:09 Eos # (Auto) Outside Salesman 01/30/21 08:09 Baso # (Auto) Outside Salesman 01/30/21 08:09 Add Manual Diff Complete 01/30/21 08:09 Total Counted 100 01/30/21 08:09 Seg Neutrophils % Outside Salesman 01/30/21 08:09 Seg Neuts % (Manual) 71.0 % (40.0-70.0) H 01/30/21 08:09 Band Neutrophils % 10.0 % 01/30/21 08:09 Lymphocytes % (Manual) 9.0 % (13.4-35.0) L 01/30/21 08:09 Reactive Lymphs % (Man) 1.0 % 01/30/21 08:09 Monocytes % (Manual) 4.0 % (0.0-7.3) 01/27/21 18:10 Eosinophils % (Manual) 1.0 % (0.0-4.3) 01/30/21 08:09 Basophils % (Manual) 0.5 % (0.0-1.8) 01/27/21 18:10 Metamyelocytes % 7.0 % 01/30/21 08:09 Myelocytes % 1.0 % 01/30/21 08:09 Nucleated RBC % 1.0 % (0.0-0.9) H 01/30/21 08:09 Seg Neutrophils # Outside Salesman 01/30/21 08:09 Seg Neutrophils # Man 15.1 K/mm3 (1.8-7.7) H 01/30/21 08:09 Band Neutrophils # 2.1 K/mm3 01/30/21 08:09 Lymphocytes # (Manual) 1.9 K/mm3 (1.2-5.4) 01/30/21 08:09 Abs React Lymphs (Man) 0.2 K/mm3 01/30/21 08:09 Monocytes # (Manual) 0.0 K/mm3 (0.0-0.8) 01/30/21 08:09 Eosinophils # (Manual) 0.2 K/mm3 (0.0-0.4) 01/30/21 08:09 Basophils # (Manual) 0.0 K/mm3 (0.0-0.1) 01/30/21 08:09 Metamyelocytes # 1.5 K/mm3 01/30/21 08:09 Myelocytes # 0.2 K/mm3 01/30/21 08:09 Promyelocytes # 0.0 K/mm3 01/30/21 08:09 Blast Cells # 0.0 K/mm3 01/30/21 08:09 WBC Morphology Not Reportable 01/30/21 08:09 Hypersegmented Neuts Not Reportable 01/30/21 08:09 Hyposegmented Neuts Not Reportable 01/30/21 08:09 Hypogranular Neuts Not Reportable 01/30/21 08:09 Smudge Cells Not Reportable 01/30/21 08:09 Toxic Granulation Not Reportable 01/30/21 08:09 Toxic Vacuolation Not Reportable 01/30/21 08:09 Dohle Bodies Not Reportable 01/30/21 08:09 Pelger-Huet Anomaly Not Reportable 01/30/21 08:09 Francisco J Rods Not Reportable 01/30/21 08:09 Platelet Estimate Consistent w auto 01/30/21 08:09 Clumped Platelets Not Reportable 01/30/21 08:09 Plt Clumps, EDTA Not Reportable 01/30/21 08:09 Large Platelets Not Reportable 01/30/21 08:09 Giant Platelets Not Reportable 01/30/21 08:09 Platelet Satelliting Not Reportable 01/30/21 08:09 Plt Morphology Comment Not Reportable 01/30/21 08:09 RBC Morphology Not Reportable 01/30/21 08:09 Dimorphic RBCs Not Reportable 01/30/21 08:09 Polychromasia Not Reportable 01/30/21 08:09 Hypochromasia Not Reportable 01/30/21 08:09 Poikilocytosis Not Reportable 01/30/21 08:09 Anisocytosis 2+ 01/30/21 08:09 Microcytosis Not Reportable 01/30/21 08:09 Macrocytosis 1+ 01/30/21 08:09 Spherocytes Not Reportable 01/30/21 08:09 Pappenheimer Bodies Not Reportable 01/30/21 08:09 Sickle Cells Not Reportable 01/30/21 08:09 Target Cells Not Reportable 01/30/21 08:09 Tear Drop Cells Not Reportable 01/30/21 08:09 Ovalocytes Not Reportable 01/30/21 08:09 Helmet Cells Not Reportable 01/30/21 08:09 [place] Bodies Not Reportable 01/30/21 08:09 [place] Rings Not Reportable 01/30/21 08:09 Guillermina Cells 1+ 01/30/21 08:09 Bite Cells Not Reportable 01/30/21 08:09 Crenated Cell Not Reportable 01/30/21 08:09 Elliptocytes Not Reportable 01/30/21 08:09 Acanthocytes (Spur) Not Reportable 01/30/21 08:09 Rouleaux Not Reportable 01/30/21 08:09 Hemoglobin C Crystals Not Reportable 01/30/21 08:09 Schistocytes Not Reportable 01/30/21 08:09 Malaria parasites Not Reportable 01/30/21 08:09 Garry Bodies Not Reportable 01/30/21 08:09 Hem Pathologist Commnt No 01/30/21 08:09 ABG pH 7.409 pH Units (7.350-7.450) 01/30/21 18:04 ABG pCO2 32.7 mm Hg 01/30/21 18:04 ABG pO2 119.3 mm Hg (80.0-90.0) H 01/30/21 18:04 ABG HCO3 20.2 mmol/L (20.0-26.0) 01/30/21 18:04 ABG O2 Saturation 98.3 % (95.0-99.0) 01/30/21 18:04 ABG O2 Content 8.3 (0.0-44) 01/30/21 18:04 ABG Base Excess -4.1 mmol/L (-2.0-3.0) L 01/30/21 18:04 ABG Hemoglobin 5.9 gm/dl (12.0-16.0) L 01/30/21 18:04 ABG Carboxyhemoglobin 1.3 % (0.0-5.0) 01/30/21 18:04 ABG Methemoglobin 0.1 % (0.0-1.5) 01/30/21 18:04 Oxyhemoglobin 96.9 % (95.0-99.0) 01/30/21 18:04 FiO2 36 % 01/30/21 18:04 Sodium 145 mmol/L (137-145) 01/31/21 09:03 Potassium 4.3 mmol/L (3.6-5.0) 01/31/21 09:03 Chloride 107.0 mmol/L (98-107) 01/31/21 09:03 Carbon Dioxide 26 mmol/L (22-30) D 01/31/21 09:03 Anion Gap 16 mmol/L 01/31/21 09:03 BUN 66 mg/dL (7-17) H 01/31/21 09:03 Creatinine 1.5 mg/dL (0.6-1.2) H 01/31/21 09:03 Estimated GFR 33 ml/min 01/31/21 09:03 BUN/Creatinine Ratio 44 % 01/31/21 09:03 Glucose 74 mg/dL (65-100) 01/31/21 09:03 Lactic Acid 1.30 mmol/L (0.7-2.0) 01/27/21 18:10 Calcium 7.7 mg/dL (8.4-10.2) L 01/31/21 09:03 Total Bilirubin 0.20 mg/dL (0.1-1.2) 01/31/21 09:03 AST 1184 units/L (5-40) H 01/31/21 09:03 ALT 397 units/L (7-56) H 01/31/21 09:03 Alkaline Phosphatase 1546 units/L (35-129) H 01/31/21 09:03 Total Protein 5.1 g/dL (6.3-8.2) L 01/31/21 09:03 Albumin 2.5 g/dL (3.9-5) L 01/31/21 09:03 Albumin/Globulin Ratio 1.0 % 01/31/21 09:03 Coronavirus (PCR) Negative (Negative) 01/27/21 08:30 Blood Type O POSITIVE 01/26/21 19:56 Antibody Screen Negative 01/26/21 19:56 Microbiology: Microbiology 01/26/21 18:28 Peripheral/Venous Blood Culture - Preliminary NO GROWTH AFTER 4 DAYS 01/26/21 18:20 Peripheral/Venous Blood Culture - Preliminary NO GROWTH AFTER 4 DAYS Sorto/IV: Voiding Method Incontinent Active Medications - Current Medications Current Medications: Generic Name Dose Route Start Last Admin Trade Name Freq PRN Reason Stop Dose Admin Acetaminophen 650 mg 01/26/21 18:10 Acetaminophen 325 Mg Tab PO Q4H PRN Pain MILD(1-3)/Fever >100.5/LUCAS Albuterol 2.5 mg 01/26/21 18:10 Albuterol 2.5 Mg/3 Ml Nebu IH Q4HRT PRN Shortness Of Breath Lipase/Protease/Amylase 1 each 01/27/21 11:00 Lipase 10,500/Protease 25,000/Amylase 43,750 (Units) Dr Joseph FEEDTUBE PRN PRN For Clogged Feeding Tube Ascorbic Acid 500 mg 01/26/21 22:00 01/31/21 10:45 Ascorbic Acid 500 Mg Tab PO 500 mg BID VINOD Administration Cholecalciferol 1,000 unit 01/27/21 10:00 01/31/21 10:46 Cholecalciferol (Vit D3) 1000 Unit (25 Mcg) Tab PO 1,000 unit QDAY VINOD Administration Hydromorphone HCl 0.25 mg 01/26/21 18:10 Hydromorphone 1 Mg/1 Ml Inj IV Q4H PRN Pain, Moderate (4-6) Hydromorphone HCl 0.5 mg 01/26/21 18:10 Hydromorphone 1 Mg/1 Ml Inj IV Q24H PRN Pain , Severe (7-10) Dextrose 1,000 mls @ 75 mls/hr 01/28/21 13:00 01/30/21 05:04 D5w IV Infused DIRECT VINOD Infusion Sodium Bicarbonate 100 meq/ 1,100 mls @ 100 mls/hr 01/30/21 16:00 01/30/21 15:41 Sterile Water IV 02/04/21 02:59 100 mls/hr DIRECT VINOD Administration Piperacillin Sod/Tazobactam Sod 2.25 gm in 50 mls @ 100 mls/hr 01/30/21 17:00 01/31/21 08:25 Zosyn/Ns 2.25 Gm/50ml IV 100 mls/hr Q8H VINOD Administration Ondansetron HCl 4 mg 01/26/21 18:10 Ondansetron 4 Mg/2 Ml Inj IV Q8H PRN Nausea And Vomiting Oxycodone/Acetaminophen 1 tab 01/26/21 18:10 Oxycodone /Acetaminophen 5-325mg Tab PO Q12H PRN Pain, Moderate (4-6) Simple Syrup 15 ml 01/27/21 11:00 Simple Syrup 15 Ml FEEDTUBE PRN PRN Hypoglycemia Simple Syrup 30 ml 01/27/21 11:00 Simple Syrup 15 Ml FEEDTUBE PRN PRN Hypoglycemia Sodium Bicarbonate 325 mg 01/27/21 11:00 Sodium Bicarbonate 325 Mg Tab FEEDTUBE PRN PRN For Clogged Feeding Tube Sodium Bicarbonate 1,300 mg 01/30/21 20:00 01/31/21 07:38 Sodium Bicarbonate 650 Mg Tab PO 1,300 mg TID VINOD Administration Sodium Chloride 10 ml 01/26/21 22:00 01/31/21 10:46 Sodium Chloride 0.9% 10 Ml Flush Syringe IV 10 ml BID VINOD Administration Sodium Chloride 10 ml 01/26/21 18:10 Sodium Chloride 0.9% 10 Ml Flush Syringe IV PRN PRN LINE FLUSH Nutrition/Malnutrition Assess - Dietary Evaluation Nutrition/Malnutrition Findings: Nutrition Notes Start: 01/27/21 10:34 Freq: Status: Active Protocol: Document 01/30/21 14:06 (Rec: 01/30/21 14:13 [id number]) Nutrition Notes Initial or Follow up Reassessment Current Diagnosis Acute Kidney Injury,Sepsis, Malnutrition Other Pertinent Diagnosis FTT, multiple myeloma Current Diet Nepro 1.8 at 28 ml/hr, pureed Labs/Tests BUN 60 Cr 1.3 Elevated LFTs Pertinent Medications Reviewed Height 5 ft 3 in Weight 38.9 kg [place] Body Weight (kg) 52.27 BMI 15.2 Weight Status Underweight Subjective/Other Information Pt had pulled out dobhoff and 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 Currently, the pt is not tolerating pureed diet and Nepro TF has been started and increased per order, pt tolerating. Percent of energy/protein needs met: 64%/35% Burn Absent Trauma Absent Minimum of two criteria Yes Body Fat Depletion Mild depletion (non-severe) Muscle Mass Mild Depletion (non-severe) #2 Nutrition Diagnosis Increased nutrient needs ( specify in comment below) Diagnosis Progress(for reassessment Continues documentation) #1 Nutrition Diagnosis Malnutrition Diagnosis Progress(for reassessment Continues documentation) Is patient on ventilator? No Is Patient Ambulatory and/or Out of Bed No REE-([place]-confined to bed) 971.448 Kcal/Kg value to use for calculation 31 Approximate Energy Requirements Using 1206 kcal/Kg Calculation Used for Recommendations Kcal/kg Additional Notes Protein: (1.25-1.5g/kg) 48-58g Nutrition Intervention Change Diet Order: continue as tolerated for pleasure Nutrition Support: Nepro 1.8 at 28 ml/hr Flush 125 ml q4h or per MD Kcal 1,209 Protein (gm) 54 Fluid (mL) 489 Goal #1 Meet 100% of protein and energy needs via TF Goal #2 Wound healing Goal #3 Weight gain/maintenance Anticipated Discharge Needs: Unable to determine at this time Follow-Up By: 02/01/21 Additional Comments F/u: TF tolerance
--- NOTE | 2021-01-31 15:54 | Procedure Note ---
Date of procedure: 01/31/21 Pre-op diagnosis: pressure ulcer right hip trochanter, right medial foot Post-op diagnosis: same Procedure: Procedure: Excisional debridement of right pressure ulcer, and right trochanter pressure ulcer Consent was obtained from the patient's daughter. Starting at the right foot, it was measured to be approximately 3 x 4 cm at the medial head of the first metatarsal. A topical free spray was used to decrease sensation for the procedure. With pressure there was a small amount of purulent drainage coming from beneath the desquamated skin. There was an eschar covering the bone of the metatarsal head. The surrounding desquamated skin was excised to the vascularized skin borders. Again applying pressure there were no pockets or tracts or areas of fluctuance that were exuding purulent material. The fibrinous exudate over the metatarsal head was mildly debrided however due to the fact that it was right on the bone and there were no signs of underlying purulence the majority of it was left in place. The area was then covered with a pressure dressing. There was no significant bleeding. A culture was taken of this area and sent to pathology. The right hip trochanter wound was addressed. It measured approximately 3 x 7 cm. With 2 open skin defects with a small skin bridge them. The majority of the underlying adipose and muscle was gone down to the underlying bone. There was no drainage, odor, erythema, fluctuance, or significant pain in the area. The skin edges had a small amount of fibrinous exudate tissue that was sharply excised. There was no significant bleeding. The skin bridge was left intact to allow for better coverage of the underlying tissue. This area was then covered with a pressure dressing. Anesthesia: local, none Surgeon: PRISCILLA PARIS Estimated blood loss: none Pathology: list (right foot wound culture) Specimen disposition: to lab Condition: stable Disposition: no change
[2021-01-31] MEDS: SODIUM BICARBONATE 100 MEQ in WATER FOR INJECTION (PF) 1,000 ML IV SCH (16:10)
--- NOTE | 2021-01-31 16:26 | Progress Note ---
Assessment and Plan Cultures: Blood cultures no growth today Assessment: 85-year-old female with history of dementia, cementation, sacral decubitus ulcer, admitted on 01/26/2021 secondary to a week history of decreased responsiveness and generalized weakness associated with shortness of breath: #Sepsis: persistent leukocytosis; likely due to bilateral pneumonia. #Bilateral pneumonia: SARS-CoV-2 PCR negative. Aspiration?. #SUDHIR: Renally adjust antibiotics. Not better #Bone lesions: ?MM #AMS: not better. #Anemia/thrombocytopenia: worsening #Right hip trochanter and right medial foot pressure ulcers: s/p Excisional debridement Recommendations: Abdominal and Pelvic CT eval for osteomyelitis/abscess Continue zosyn Wound care consult Offloading Swallowing eval Follow blood cultures Patient is DNR, family does not want comfort measure or hospice. Very guarded prognosis Will follow. Ariana López MD [facility] ([facility]) M [phone] O [phone] Subjective Date of service: 01/31/21 Principal diagnosis: Sepsis Interval history: Non verbal position Objective - Exam Narrative Exam: General appearance: somnolent cachectic Eyes: anicteric sclerae, moist conjunctivae; no lid-lag; PERRLA HENT: Normocephalic, Atraumatic; normal external ears, nares open, oropharynx limited Neck: supple, tracheal midline, no JVD Lungs: diminished bs CV: RRR no murmur Abdomen: Soft, non tender Extremities: cachectic Skin: multiple pressure wounds covered Psych: flat affect Neuro: somnolent - Constitutional Vitals: Vital Signs Temp Pulse Resp BP Pulse Ox 97.0 F L 97 H 16 117/74 90 01/31/21 13:48 01/31/21 13:48 01/31/21 13:48 01/31/21 13:48 01/31/21 13:48 Temperature -Last 24 Hours Temperature 97.0 F Temperature 97.4 F Temperature 97.4 F Temperature 97.4 F - Labs CBC & Chem 7: 01/31/21 09:03 02/01/21 07:45 Labs: Abnormal lab results 01/30/21 01/31/21 01/31/21 Range/Units 18:04 09:03 09:03 WBC 18.0 H (4.5-11.0) K/mm3 RBC 2.15 L (3.65-5.03) M/mm3 Hgb 6.8 L (10.1-14.3) gm/dl Hct 20.6 L (30.3-42.9) % RDW 23.7 H (13.2-15.2) % Plt Count 106 L (140-440) K/mm3 ABG pO2 119.3 H (80.0-90.0) mm Hg ABG Base Excess -4.1 L (-2.0-3.0) mmol/L ABG Hemoglobin 5.9 L (12.0-16.0) gm/dl BUN 66 H (7-17) mg/dL Creatinine 1.5 H (0.6-1.2) mg/dL Calcium 7.7 L (8.4-10.2) mg/dL AST 1184 H (5-40) units/L ALT 397 H (7-56) units/L Alkaline Phosphatase 1546 H (35-129) units/L Total Protein 5.1 L (6.3-8.2) g/dL Albumin 2.5 L (3.9-5) g/dL
[2021-02-01] MEDS: PIPERACIL-TAZO 2.25 GM/50 ML 2.25 GM/50 ML BAG IV SCH ×3 (01:36→18:06)
--- NOTE | 2021-02-01 03:16 | XRay Report ---
XR abdomen 1V ap INDICATION / CLINICAL INFORMATION: DOBBHOFF PLACEMENT COMPARISON: 01/29/2021 FINDINGS/IMPRESSION: Weighted tip feeding tube overlies the GE junction. Recommend further advancement for more optimal pl acement. Signer Name: Jay Jay Mcknight MD Signed: 02/01/2021 3:12 AM Workstation Name: [id number]
[2021-02-01 08:27] LABS: Calcium 7.2 mg/dL (8.4-10.2)
--- NOTE | 2021-02-01 09:05 | Progress Note ---
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 Patient has diminished cognition at the time my evaluation and is unable to provide history. Patient history provided by EMS staff, ED staff, longterm facility staff, as well as patient daughter who was made available by telephone for interview. As per daughter she was notified by longterm facility staff today and informed that the patient "was getting sick". The patient has experienced decreased responsiveness as well as increased weakness over the past 1 week with acute worsening of symptoms over the past 1 day. EMS was notified and upon arrival the patient was found to be in distress and was subsequently transported to [facility] for further care and evaluation of the aforementioned symptoms. The patient was seen and evaluated in the emergency department. All lab and imaging studies reviewed. Patient was found to have a pulse oximetry of 85% on room air which is consistent with acute hypoxemic respiratory failure. A chest x-ray revealed bilateral pneumonia. The patient was also found to have sepsis, acute kidney injury, as well as severe hypernatremia. The patient was admitted to medical floor and initiated on sepsis protocol, pneumonia protocol, as well as coronavirus protocol. No further history is obtainable. The patient has diminished cognition but has a positive gag reflex and is able to protect her airway without difficulty the time my evaluation. Advanced care planning conducted in ED. Hospital course to date 01/27: Patient seen and examined, very lethargic, and appears deconditioned and dry. - ID and Nephrology consult - Gentle hydration while awaiting COVID testing. - Monitor Platelet level - Follow cultures. - Q2H turns 01/28: Patient seen and examined unable to get Dobbhoff yesterday the nurse yesterday said that he was able to tolerate pured diet as recommended by speech therapist. Although today's nurse reports that the patient is not tolerating so we will try the Dobbhoff again. We will continue to reevaluate and on my examination he actually opens her mouth and responds to some questions recommended we try assistance with feeding again today. Renal function showing some improvement ID input appreciated continue antibiotics at this time. Leukocytosis still worse we will recheck. Assessment: 85-year-old female with history of dementia, cementation, sacral decubitus ulcer, admitted on 01/26/2021 secondary to a week history of decreased responsiveness and generalized weakness associated with shortness of breath 01/29/21 Patient is seen and examined. Patient is awake alert but demented. Patient pulled out the Dobbhoff tube. Will reinsert the Dobbhoff tube today and if possible start feeding. If needed will put the patient on restraint. Continue current management. Nutritional evaluation. Recheck CBC CMP in the morning. Nephrology follow-up. Assessment: 85-year-old female with history of dementia, cementation, sacral decubitus ulcer, admitted on 01/26/2021 secondary to a week history of decreased responsiveness and generalized weakness associated with shortness of breath: 01/30: Patient seen and examined, she is staill very leathrgic, tube feed is ongoing, unfortunately worsening metabolic acidosis. I spoke to the patients daughter and discussed overall medical condition, while they maintained DNR, they do not want comfort measure or hospice. I also advised that patient is having liver failure. Will further evaluate the liver Nephrology input appreciated. Will await Wound care evaluation and may need a surgical eval of the multiple wounds for possible debridement. Aspiration precautions Poor prognosis 01/31: Continues to be lethargic . Very frail . Surgery consulted for wound care evaluation. Prognosis remains poor. Bedside excision completed by surgery. ID consultation obtained. 02/01/2021: Patient continues to be lethargic. Blood sugar is noted to be low with reading of 20. Ordered glucagon 1 mg IV x1. Patient had not been receiv ing tube feeds due to her pulling Dobbhoff. Speech therapy recommends PEG tube placement. GI consulted for elevated transaminases and PEG tube placement. Will follow recs. (1) Sepsis Current Visit: Yes Status: Acute Plan to address problem: Sepsis protocol: IV antibiotic therapy, IV fluid resuscitation therapy, serial lactic acid level, monitor urine output every shift, monitor fluid balance, maintain mean arterial pressure greater than equal 65, blood culture. Pressure ulcers unlikely per surgery ?Osteomyelitis- CTAP ordered Continue Zosyn IV. (2) Suspected 2019 novel coronavirus infection Current Visit: Yes Status: Acute Plan to address problem: Coronavirus protocol: IV steroid therapy, IV antibiotic therapy, supplemental oxygen, pulse oximetry, contact precautions, isolation precautions, nebulizer therapy, vitamin C therapy, vitamin D therapy, zinc therapy, (3) Severe malnutrition Current Visit: Yes Status: Acute Plan to address problem: Dietary supplementation, supportive care. (4) Hypernatremia Current Visit: Yes Status: Acute Plan to address problem: IV fluid resuscitation therapy, BMP, repeat BMP in a.m. (5) Acute kidney injury (SUDHIR) with acute tubular necrosis (ATN) Current Visit: Yes Status: Acute Plan to address problem: BMP, IV fluid resuscitation therapy, repeat BMP in a.m. to monitor serum creatinine as well as GFR (6) Multiple myeloma Current Visit: Yes Status: Acute Qualifiers: Multiple myeloma remission status: unspecified Qualified Code(s): C90.00 - Multiple myeloma not having achieved remission Plan to address problem: Supportive care, lytic bone lesions on x-ray. Patient family informed. No intervention desired. ID recommends CTAP. Will order (7) Bilateral pneumonia Current Visit: Yes Status: Acute Plan to address problem: Pneumonia protocol: Chest x-ray, CBC, CMP, supplemental oxygen, pulse oximetry, nebulizer therapy, blood culture. IV antibiotic therapy. (8) Multiple Pressure ulcer, Sacral Decubitus Ulcer - s/p bedside debridement by surgery. - low suspicion for source of sepsis, leukocytosis. (9) Anemia (10)Lactic Acidosis 11) Transaminits AST: 1184, ALT: 397. Was normal on admission Follow hepatitis serology D/c all hepatotoxic agents. GI consulted to evaluate (12) Advance care planning Current Visit: Yes Status: Acute Plan to address problem: Disease education conducted, care plan discussed, diagnosis discussed, poor prognosis discussed. Patient daughter Emy Chambers informed of patient prognosis. Patient is DNR. Patient daughter elects to have medical therapy at this time. Patient daughter made aware that patient may not tolerate therapy and current therapy may hasten patient demise. Patient daughter acknowledges understanding instructions patient daughter acknowledges understanding and agreement with current care plan. +30 minutes. (13)DVT prophylaxis Current Visit: Yes Status: Acute Plan to address problem: SCD to bilateral lower extremities while in bed History Interval history: Patient received midline this morning. Did not appear to be in any distress. She was not answering any of my questioning appropriately... Simply mumbling Hospitalist Physical - Physical exam Narrative exam: Narrative exam: General appearance: Present: mild distress, contracted - EENT ENT: hearing decreased, other, dry mucus membrane - Neck Neck: Present: supple, normal ROM - Respiratory Respiratory effort: labored Respiratory: bilateral: diminished, rhonchi - Cardiovascular Rhythm: regular Heart Sounds: Present: S1 & S2 - Extremities Extremities: pulses symmetrical, No edema Extremity abnormal: ulceration Peripheral Pulses: abnormal (Capillary refill greater than 3.5 seconds) - Abdominal General gastrointestinal: Present: soft, non-tender, non-distended, normal bowel sounds Female genitourinary: Present: normal - Integumentary Integumentary: Present: multiple ecchymotic injury, clear, dry, clammy, decr eased turgor - Musculoskeletal Musculoskeletal: generalized weakness - Psychiatric Psychiatric: no appropriate mood/affect, no intact judgment & insight, no memory intact - Neurologic Neurologic: no gait normal - Constitutional Vitals: Temp Pulse Resp BP Pulse Ox 97.4 F L 91 H 16 102/61 92 02/01/21 04:18 01/31/21 18:28 02/01/21 04:18 02/01/21 04:18 01/31/21 20:00 General appearance: Present: mild distress Results - Labs CBC & Chem 7: 01/31/21 09:03 02/01/21 07:45 Labs: Laboratory Last Values WBC 18.0 K/mm3 (4.5-11.0) H 01/31/21 09:03 RBC 2.15 M/mm3 (3.65-5.03) L 01/31/21 09:03 Hgb 6.8 gm/dl (10.1-14.3) L 01/31/21 09:03 Hct 20.6 % (30.3-42.9) L 01/31/21 09:03 MCV 96 fl (79-97) 01/31/21 09:03 MCH 32 pg (28-32) 01/31/21 09:03 MCHC 33 % (30-34) 01/31/21 09:03 RDW 23.7 % (13.2-15.2) H 01/31/21 09:03 Plt Count 106 K/mm3 (140-440) L 01/31/21 09:03 Lymph % (Auto) [employer]cing [employer] Operator 01/30/21 08:09 [place] % (Auto) [employer] Operator 01/30/21 08:09 Eos % (Auto) [employer] Operator 01/30/21 08:09 Baso % (Auto) [employer] 01/30/21 08:09 Lymph # (Auto) [employer] Operator 01/30/21 08:09 [place] # (Auto) [employer] Operator 01/30/21 08:09 Eos # (Auto) [employer] Operator 01/30/21 08:09 Baso # (Auto) [employer] Operator 01/30/21 08:09 Add Manual Diff Complete 01/30/21 08:09 Total Counted 100 01/30/21 08:09 Seg Neutrophils % [employer] 01/30/21 08:09 Seg Neuts % (Manual) 71.0 % (40.0-70.0) H 01/30/21 08:09 Band Neutrophils % 10.0 % 01/30/21 08:09 Lymphocytes % (Manual) 9.0 % (13.4-35.0) L 01/30/21 08:09 Reactive Lymphs % (Man) 1.0 % 01/30/21 08:09 Monocytes % (Manual) 4.0 % (0.0-7.3) 01/27/21 18:10 Eosinophils % (Manual) 1.0 % (0.0-4.3) 01/30/21 08:09 Basophils % (Manual) 0.5 % (0.0-1.8) 01/27/21 18:10 Metamyelocytes % 7.0 % 01/30/21 08:09 Myelocytes % 1.0 % 01/30/21 08:09 Nucleated RBC % 1.0 % (0.0-0.9) H 01/30/21 08:09 Seg Neutrophils # [employer] Operator 01/30/21 08:09 Seg Neutrophils # Man 15.1 K/mm3 (1.8-7.7) H 01/30/21 08:09 Band Neutrophils # 2.1 K/mm3 01/30/21 08:09 Lymphocytes # (Manual) 1.9 K/mm3 (1.2-5.4) 01/30/21 08:09 Abs React Lymphs (Man) 0.2 K/mm3 01/30/21 08:09 Monocytes # (Manual) 0.0 K/mm3 (0.0-0.8) 01/30/21 08:09 Eosinophils # (Manual) 0.2 K/mm3 (0.0-0.4) 01/30/21 08:09 Basophils # (Manual) 0.0 K/mm3 (0.0-0.1) 01/30/21 08:09 Metamyelocytes # 1.5 K/mm3 01/30/21 08:09 Myelocytes # 0.2 K/mm3 01/30/21 08:09 Promyelocytes # 0.0 K/mm3 01/30/21 08:09 Blast Cells # 0.0 K/mm3 01/30/21 08:09 WBC Morphology Not Reportable 01/30/21 08:09 Hypersegmented Neuts Not Reportable 01/30/21 08:09 Hyposegmented Neuts Not Reportable 01/30/21 08:09 Hypogranular Neuts Not Reportable 01/30/21 08:09 Smudge Cells Not Reportable 01/30/21 08:09 Toxic Granulation Not Reportable 01/30/21 08:09 Toxic Vacuolation Not Reportable 01/30/21 08:09 Dohle Bodies Not Reportable 01/30/21 08:09 Pelger-Huet Anomaly Not Reportable 01/30/21 08:09 Francisco J Rods Not Reportable 01/30/21 08:09 Platelet Estimate Consistent w auto 01/30/21 08:09 Clumped Platelets Not Reportable 01/30/21 08:09 Plt Clumps, EDTA Not Reportable 01/30/21 08:09 Large Platelets Not Reportable 01/30/21 08:09 Giant Platelets Not Reportable 01/30/21 08:09 Platelet Satelliting Not Reportable 01/30/21 08:09 Plt Morphology Comment Not Reportable 01/30/21 08:09 RBC Morphology Not Reportable 01/30/21 08:09 Dimorphic RBCs Not Reportable 01/30/21 08:09 Polychromasia Not Reportable 01/30/21 08:09 Hypochromasia Not Reportable 01/30/21 08:09 Poikilocytosis Not Reportable 01/30/21 08:09 Anisocytosis 2+ 01/30/21 08:09 Microcytosis Not Reportable 01/30/21 08:09 Macrocytosis 1+ 01/30/21 08:09 Spherocytes Not Reportable 01/30/21 08:09 Pappenheimer Bodies Not Reportable 01/30/21 08:09 Sickle Cells Not Reportable 01/30/21 08:09 Target Cells Not Reportable 01/30/21 08:09 Tear Drop Cells Not Reportable 01/30/21 08:09 Ovalocytes Not Reportable 01/30/21 08:09 Helmet Cells Not Reportable 01/30/21 08:09 [employer] Bodies Not Reportable 01/30/21 08:09 [place] Rings Not Reportable 01/30/21 08:09 Guillermina Cells 1+ 01/30/21 08:09 Bite Cells Not Reportable 01/30/21 08:09 Crenated Cell Not Reportable 01/30/21 08:09 Elliptocytes Not Reportable 01/30/21 08:09 Acanthocytes (Spur) Not Reportable 01/30/21 08:09 Rouleaux Not Reportable 01/30/21 08:09 Hemoglobin C Crystals Not Reportable 01/30/21 08:09 Schistocytes Not Reportable 01/30/21 08:09 Malaria parasites Not Reportable 01/30/21 08:09 Garry Bodies Not Reportable 01/30/21 08:09 Hem Pathologist Commnt No 01/30/21 08:09 ABG pH 7.409 pH Units (7.350-7.450) 01/30/21 18:04 ABG pCO2 32.7 mm Hg 01/30/21 18:04 ABG pO2 119.3 mm Hg (80.0-90.0) H 01/30/21 18:04 ABG HCO3 20.2 mmol/L (20.0-26.0) 01/30/21 18:04 ABG O2 Saturation 98.3 % (95.0-99.0) 01/30/21 18:04 ABG O2 Content 8.3 (0.0-44) 01/30/21 18:04 ABG Base Excess -4.1 mmol/L (-2.0-3.0) L 01/30/21 18:04 ABG Hemoglobin 5.9 gm/dl (12.0-16.0) L 01/30/21 18:04 ABG Carboxyhemoglobin 1.3 % (0.0-5.0) 01/30/21 18:04 ABG Methemoglobin 0.1 % (0.0-1.5) 01/30/21 18:04 Oxyhemoglobin 96.9 % (95.0-99.0) 01/30/21 18:04 FiO2 36 % 01/30/21 18:04 Sodium 147 mmol/L (137-145) H 02/01/21 07:45 Potassium 3.0 mmol/L (3.6-5.0) L D 02/01/21 07:45 Chloride 109.3 mmol/L (98-107) H 02/01/21 07:45 Carbon Dioxide 22 mmol/L (22-30) 02/01/21 07:45 Anion Gap 19 mmol/L 02/01/21 07:45 BUN 66 mg/dL (7-17) H 02/01/21 07:45 Creatinine 1.5 mg/dL (0.6-1.2) H 02/01/21 07:45 Estimated GFR 33 ml/min 02/01/21 07:45 BUN/Creatinine Ratio 44 % 02/01/21 07:45 Glucose 62 mg/dL (65-100) L 02/01/21 07:45 Lactic Acid 1.30 mmol/L (0.7-2.0) 01/27/21 18:10 Calcium 7.2 mg/dL (8.4-10.2) L 02/01/21 07:45 Total Bilirubin 0.20 mg/dL (0.1-1.2) 01/31/21 09:03 AST 1184 units/L (5-40) H 01/31/21 09:03 ALT 397 units/L (7-56) H 01/31/21 09:03 Alkaline Phosphatase 1546 units/L (35-129) H 01/31/21 09:03 Total Protein 5.1 g/dL (6.3-8.2) L 01/31/21 09:03 Albumin 2.5 g/dL (3.9-5) L 01/31/21 09:03 Albumin/Globulin Ratio 1.0 % 01/31/21 09:03 Coronavirus (PCR) Negative (Negative) 01/27/21 08:30 Blood Type O POSITIVE 01/26/21 19:56 Antibody Screen Negative 01/26/21 19:56 Microbiology: Microbiology 01/26/21 18:28 Peripheral/Venous Blood Culture - Final NO GROWTH AFTER 5 DAYS 01/26/21 18:20 Peripheral/Venous Blood Culture - Final NO GROWTH AFTER 5 DAYS Sorto/IV: Voiding Method Incontinent Active Medications - Current Medications Current Medications: Generic Name Dose Route Start Last Admin Trade Name Freq PRN Reason Stop Dose Admin Albuterol 2.5 mg 01/26/21 18:10 Albuterol 2.5 Mg/3 Ml Nebu IH Q4HRT PRN Shortness Of Breath Lipase/Protease/Amylase 1 each 01/27/21 11:00 Lipase 10,500/Protease 25,000/Amylase 43,750 (Units) Dr Joseph FEEDTUBE PRN PRN For Clogged Feeding Tube Ascorbic Acid 500 mg 01/26/21 22:00 01/31/21 22:46 Ascorbic Acid 500 Mg Tab PO Not Given BID VINOD Cholecalciferol 1,000 unit 01/27/21 10:00 01/31/21 10:46 Cholecalciferol (Vit D3) 1000 Unit (25 Mcg) Tab PO 1,000 unit QDAY VINOD Administration Hydromorphone HCl 0.25 mg 01/26/21 18:10 Hydromorphone 1 Mg/1 Ml Inj IV Q4H PRN Pain, Moderate (4-6) Hydromorphone HCl 0.5 mg 01/26/21 18:10 Hydromorphone 1 Mg/1 Ml Inj IV Q24H PRN Pain , Severe (7-10) Dextrose 1,000 mls @ 75 mls/hr 01/28/21 13:00 01/30/21 05:04 D5w IV Infused DIRECT VINOD Infusion Sodium Bicarbonate 100 meq/ 1,100 mls @ 100 mls/hr 01/30/21 16:00 01/31/21 16:10 Sterile Water IV 02/04/21 02:59 100 mls/hr DIRECT VINOD Administration Piperacillin Sod/Tazobactam Sod 2.25 gm in 50 mls @ 100 mls/hr 01/30/21 17:00 02/01/21 01:36 Zosyn/Ns 2.25 Gm/50ml IV 100 mls/hr Q8H VINOD Administration Ondansetron HCl 4 mg 01/26/21 18:10 Ondansetron 4 Mg/2 Ml Inj IV Q8H PRN Nausea And Vomiting Oxycodone/Acetaminophen 1 tab 01/26/21 18:10 Oxycodone /Acetaminophen 5-325mg Tab PO Q12H PRN Pain, Moderate (4-6) Simple Syrup 15 ml 01/27/21 11:00 Simple Syrup 15 Ml FEEDTUBE PRN PRN Hypoglycemia Simple Syrup 30 ml 01/27/21 11:00 Simple Syrup 15 Ml FEEDTUBE PRN PRN Hypoglycemia Sodium Bicarbonate 325 mg 01/27/21 11:00 Sodium Bicarbonate 325 Mg Tab FEEDTUBE PRN PRN For Clogged Feeding Tube Sodium Bicarbonate 1,300 mg 01/30/21 20:00 01/31/21 22:47 Sodium Bicarbonate 650 Mg Tab PO Not Given TID VINOD Sodium Chloride 10 ml 01/26/21 22:00 01/31/21 22:46 Sodium Chloride 0.9% 10 Ml Flush Syringe IV Not Given BID VINOD Sodium Chloride 10 ml 01/26/21 18:10 Sodium Chloride 0.9% 10 Ml Flush Syringe IV PRN PRN LINE FLUSH Sodium Hypochlorite 1 applic 02/01/21 10:00 Sodium Hypochlorite, Dakin's 1/2 Strength (0.25%) 473 Ml Topical Soln TP BID VINOD Nutrition/Malnutrition Assess - Dietary Evaluation Nutrition/Malnutrition Findings: Nutrition Notes Start: 01/27/21 10:34 Freq: Status: Active Protocol: Document 01/30/21 14:06 (Rec: 01/30/21 14:13 [id number]) Nutrition Notes Initial or Follow up Reassessment Current Diagnosis Acute Kidney Injury,Sepsis, Malnutrition Other Pertinent Diagnosis FTT, multiple myeloma Current Diet Nepro 1.8 at 28 ml/hr, pureed Labs/Tests BUN 60 Cr 1.3 Elevated LFTs Pertinent Medications Reviewed Height 5 ft 3 in Weight 38.9 kg [place] Body Weight (kg) 52.27 BMI 15.2 Weight Status Underweight Subjective/Other Information Pt had pulled out dobhoff and SENIOR ACCOUNTING SPECIALIST recommended pureed. Currently, the pt is not tolerating pureed diet and Nepro TF has been started and increased per order, pt tolerating. Percent of energy/protein needs met: 64%/35% Burn Absent Trauma Absent Minimum of two criteria Yes Body Fat Depletion Mild depletion (non-severe) Muscle Mass Mild Depletion (non-severe) #2 Nutrition Diagnosis Increased nutrient needs ( specify in comment below) Diagnosis Progress(for reassessment Continues documentation) #1 Nutrition Diagnosis Malnutrition Diagnosis Progress(for reassessment Continues documentation) Is patient on ventilator? No Is Patient Ambulatory and/or Out of Bed No REE-([place]-St. Jeor-confined to bed) 971.448 Kcal/Kg value to use for calculation 31 Approximate Energy Requirements Using 1206 kcal/Kg Calculation Used for Recommendations Kcal/kg Additional Notes Protein: (1.25-1.5g/kg) 48-58g Nutrition Intervention Change Diet Order: continue as tolerated for pleasure Nutrition Support: Nepro 1.8 at 28 ml/hr Flush 125 ml q4h or per MD Kcal 1,209 Protein (gm) 54 Fluid (mL) 489 Goal #1 Meet 100% of protein and energy needs via TF Goal #2 Wound healing Goal #3 Weight gain/maintenance Anticipated Discharge Needs: Unable to determine at this time Follow-Up By: 02/01/21 Additional Comments F/u: TF tolerance
[2021-02-01] MEDS: SODIUM BICARBONATE 650 MG TAB PO SCH (09:06)
--- NOTE | 2021-02-01 10:23 | Progress Note ---
Assessment and Plan Cultures: Blood cultures no growth today Assessment: 85-year-old female with history of dementia, cementation, sacral decubitus ulcer, admitted on 01/26/2021 secondary to a week history of decreased responsiveness and generalized weakness associated with shortness of breath: #Sepsis: persistent leukocytosis; likely due to bilateral pneumonia. #Bilateral pneumonia: SARS-CoV-2 PCR negative. Aspiration?. #SUDHIR: Renally adjust antibiotics. Not better #Bone lesions: ?MM #AMS: not better. #Anemia/thrombocytopenia: worsening #Right hip trochanter and right medial foot pressure ulcers: s/p Excisional debridement #Malnutrition Recommendations: If family wants aggressive management consider abdominal and Pelvic CT eval for osteomyelitis/abscess Continue zosyn Wound care consult Offloading Swallowing eval Follow blood cultures Patient is DNR, family does not want comfort measure or hospice. Pressure ulcers unlikely to heal. Very guarded prognosis Will follow. Ariana López MD Infectious Diseases [employer] [facility] ([facility]) M [phone] O [phone] Subjective Date of service: 02/01/21 Principal diagnosis: Sepsis Interval history: Remains non verbal, position. Objective - Exam Narrative Exam: General appearance: somnolent cachectic Eyes: anicteric sclerae, moist conjunctivae; no lid-lag; PERRLA HENT: Normocephalic, Atraumatic; normal external ears, nares open, oropharynx limited Neck: supple, tracheal midline, no JVD Lungs: diminished bs CV: RRR no murmur Abdomen: Soft, non tender Extremities: cachectic Skin: multiple pressure wounds covered Psych: flat affect Neuro: somnolent - Constitutional Vitals: Vital Signs Temp Pulse Resp BP Pulse Ox 97.4 F L 91 H 16 102/61 92 02/01/21 04:18 01/31/21 18:28 02/01/21 04:18 02/01/21 04:18 01/31/21 20:00 Temperature -Last 24 Hours Temperature 97.4 F Temperature 97.4 F Temperature 97.0 F Temperature 97.0 F - Labs CBC & Chem 7: 01/31/21 09:03 02/01/21 07:45 Labs: Abnormal lab results 01/31/21 02/01/21 Range/Units 09:03 07:45 Sodium 147 H (137-145) mmol/L Potassium 3.0 L D (3.6-5.0) mmol/L Chloride 109.3 H (98-107) mmol/L BUN 66 H 66 H (7-17) mg/dL Creatinine 1.5 H 1.5 H (0.6-1.2) mg/dL Glucose 62 L (65-100) mg/dL Calcium 7.7 L 7.2 L (8.4-10.2) mg/dL AST 1184 H (5-40) units/L ALT 397 H (7-56) units/L Alkaline Phosphatase 1546 H (35-129) units/L Total Protein 5.1 L (6.3-8.2) g/dL Albumin 2.5 L (3.9-5) g/dL
[2021-02-01] MEDS: SODIUM HYPOCHLORITE, DAKIN'S 1/2 STRENGTH (0.25%) 473 ML TOPICAL SOLN TP SCH ×2 (10:26→22:06)
[2021-02-01] MEDS: CHOLECALCIFEROL (VIT D3) 1000 UNIT (25 mcg) TAB PO SCH (10:29)
[2021-02-01] MEDS: ASCORBIC ACID 500 MG TAB PO SCH ×2 (10:29→22:05)
[2021-02-01] MEDS ORDERED: DEXTROSE 25 % IN WATER (2.5 GM) 10 ML SYRINGE IV SCH (11:25)
[2021-02-01] MEDS: DEXTROSE 50% IN WATER (25GM) 50 ML SYRINGE IV ONE ×2 (11:27→11:32)
[2021-02-01] MEDS ORDERED: DEXTROSE 50% IN WATER (25GM) 50 ML SYRINGE IV ONE (11:30)
--- NOTE | 2021-02-01 12:25 | Progress Note ---
Assessment and Plan Impression: * Acute kidney injury secondary to prerenal azotemia due to dehydration * Sepsis * Bilateral PNA (COVID PCR negative) * Hyperkalemia * Hypernatremia * Decubitus ulcer * Hx of Multiple myeloma Plan: * Continue D5W * Recommend NG tube placement and free water replacement - 400 ml Q3h * Transfuse for hgb < 7 * Keep MAP>65 * Hyperkalemia resolved w/ medical management * Abx per ID * Dose medications for renal function * Avoid potential nephrotoxins * Strict I/O * AM labs * Prognosis is guarded Subjective Date of service: 02/01/21 Principal diagnosis: Sepsis Interval history: Nursing, interdisciplinary and consult notes were reviewed Vitals, input and output, medications and labs were reviewed Non-verbal, lying in position Objective - Exam Narrative Exam: General: No acute distress HEENT: Oral mucosa moist Neck: Supple, no JVD Chest: Clear to auscultation bilaterally Heart: RRR, S1 and S2, no pericardial rub Abdomen: Soft, nontender, no renal bruit Extremity: No peripheral cyanosis, edema Neurological: Alert, awake, no asterixis Dermatology: No skin rash Psych: No agitation Musculoskeletal: No joint effusion - Vital Signs Vital signs: Vital Signs - 12hr 02/01/21 04:18 Temperature 97.4 F L Respiratory 16 Rate Blood Pressure 102/61 - Lab 01/31/21 09:03 02/01/21 07:45 Most recent lab results ABG pH 7.409 pH Units (7.350-7.450) 01/30/21 18:04 ABG pCO2 32.7 mm Hg 01/30/21 18:04 ABG pO2 119.3 mm Hg (80.0-90.0) H 01/30/21 18:04 ABG HCO3 20.2 mmol/L (20.0-26.0) 01/30/21 18:04 ABG O2 Saturation 98.3 % (95.0-99.0) 01/30/21 18:04 Calcium 7.2 mg/dL (8.4-10.2) L 02/01/21 07:45 Medications & Allergies - Medications Allergies/Adverse Reactions: Allergies No Known Allergies Allergy (Verified 01/26/21 16:32) Home Medications: Home Medications Medication Instructions Recorded Confirmed Last Taken Type No Known Home Medications [No 01/28/21 01/28/21 Unknown History Reported Home Medications] Active Medications: Generic Name Dose Route Start Last Admin Trade Name Freq PRN Reason Stop Dose Admin Albuterol 2.5 mg 01/26/21 18:10 Albuterol 2.5 Mg/3 Ml Nebu IH Q4HRT PRN Shortness Of Breath Lipase/Protease/Amylase 1 each 01/27/21 11:00 Lipase 10,500/Protease 25,000/Amylase 43,750 (Units) Dr Joseph FEEDTUBE PRN PRN For Clogged Feeding Tube Ascorbic Acid 500 mg 01/26/21 22:00 02/01/21 10:29 Ascorbic Acid 500 Mg Tab PO Not Given BID VINOD Cholecalciferol 1,000 unit 01/27/21 10:00 02/01/21 10:29 Cholecalciferol (Vit D3) 1000 Unit (25 Mcg) Tab PO Not Given QDAY VINOD Glucagon 1 mg 02/01/21 12:20 Glucagon (Human Recombinant) 1 Mg/Ml Inj IV 02/01/21 12:21 ONCE ONE Hydromorphone HCl 0.25 mg 01/26/21 18:10 Hydromorphone 1 Mg/1 Ml Inj IV Q4H PRN Pain, Moderate (4-6) Hydromorphone HCl 0.5 mg 01/26/21 18:10 Hydromorphone 1 Mg/1 Ml Inj IV Q24H PRN Pain , Severe (7-10) Dextrose 1,000 mls @ 75 mls/hr 01/28/21 13:00 01/30/21 05:04 D5w IV Infused DIRECT VINOD Infusion Sodium Bicarbonate 100 meq/ 1,100 mls @ 100 mls/hr 01/30/21 16:00 01/31/21 16:10 Sterile Water IV 02/04/21 02:59 100 mls/hr DIRECT VINOD Administration Piperacillin Sod/Tazobactam Sod 2.25 gm in 50 mls @ 100 mls/hr 01/30/21 17:00 02/01/21 11:27 Zosyn/Ns 2.25 Gm/50ml IV Infused Q8H VINOD Infusion Ondansetron HCl 4 mg 01/26/21 18:10 Ondansetron 4 Mg/2 Ml Inj IV Q8H PRN Nausea And Vomiting Oxycodone/Acetaminophen 1 tab 01/26/21 18:10 Oxycodone /Acetaminophen 5-325mg Tab PO Q12H PRN Pain, Moderate (4-6) Simple Syrup 15 ml 01/27/21 11:00 Simple Syrup 15 Ml FEEDTUBE PRN PRN Hypoglycemia Simple Syrup 30 ml 01/27/21 11:00 Simple Syrup 15 Ml FEEDTUBE PRN PRN Hypoglycemia Sodium Bicarbonate 325 mg 01/27/21 11:00 Sodium Bicarbonate 325 Mg Tab FEEDTUBE PRN PRN For Clogged Feeding Tube Sodium Bicarbonate 1,300 mg 01/30/21 20:00 02/01/21 09:06 Sodium Bicarbonate 650 Mg Tab PO Not Given TID VINOD Sodium Chloride 10 ml 01/26/21 22:00 02/01/21 10:27 Sodium Chloride 0.9% 10 Ml Flush Syringe IV 10 ml BID VINOD Administration Sodium Chloride 10 ml 01/26/21 18:10 Sodium Chloride 0.9% 10 Ml Flush Syringe IV PRN PRN LINE FLUSH Sodium Hypochlorite 1 applic 02/01/21 10:00 02/01/21 10:26 Sodium Hypochlorite, Dakin's 1/2 Strength (0.25%) 473 Ml Topical Soln TP 1 each BID VINOD Administration
[2021-02-01] MEDS ORDERED: GLUCAGON (HUMAN RECOMBINANT) 1 MG/ML INJ IV ONE (12:30)
--- NOTE | 2021-02-01 12:43 | XRay Report ---
ABDOMEN 1 VIEW INDICATION / CLINICAL INFORMATION: placement of NG tube. COMPARISON: KUB from earlier today. FINDINGS: TUBES / LINES: An NG tube has been slightly advanced and terminates over the gastric fundus. BOWEL GAS PATTERN: No significant abnormality. FREE AIR / EXTRALUMINAL GAS: None seen. ADDITIONAL FINDINGS: The bones are unchanged. IMPRESSION: Slight interval advancement of the NG tube with the tip projecting over the gastric fundus. Signer Name: Flakito Graff MD Signed: 02/01/2021 12:38 PM Workstation Name: [id number]
--- NOTE | 2021-02-01 15:01 | Gastroenterology Consultation ---
History of Present Illness - Reason for Consult Consult date: 02/01/21 Abnl LFT, PEG placement Requesting physician: BESSY HANSON - History of Present Illness The patient is a nonverbal 85 yo female admitted with sepsis (COVID negative, but PUI). She has failed a speech eval and PEG is requested. There has been no prior hx of PEG placement. She has no scars in LUQ in abdomen. She has an NG tube and is tolerating feeds. Of note, her platelets are low, and she has new elevated LFTs. She has no documented hx of hepatitis or cirrhosis, or prior liver imaging. Hepatitis panel pending. Past History Past Medical History: other (failure to thrive) Past Surgical History: No surgical history Social history: single. denies: smoking, alcohol abuse Family history: hypertension Medications and Allergies Allergies Allergy/AdvReac Type Severity Reaction Status Date / Time No Known Allergies Allergy Verified 01/26/21 16:32 Home Medications Medication Instructions Recorded Confirmed Last Taken Type No Known Home Medications [No 01/28/21 01/28/21 Unknown History Reported Home Medications] Active Meds: Active Medications Albuterol (Albuterol 2.5 Mg/3 Ml Nebu) 2.5 mg IH Q4HRT PRN PRN Reason: Shortness Of Breath Lipase/Protease/Amylase (Lipase 10,500/Protease 25,000/Amylase 43,750 (Units) Dr Joseph) 1 each FEEDTUBE PRN PRN PRN Reason: For Clogged Feeding Tube Ascorbic Acid (Ascorbic Acid 500 Mg Tab) 500 mg PO BID [facility] Last Admin: 02/01/21 10:29 Dose: Not Given Documented by: Cholecalciferol (Cholecalciferol (Vit D3) 1000 Unit (25 Mcg) Tab) 1,000 unit PO QDAY [facility] Last Admin: 02/01/21 10:29 Dose: Not Given Documented by: Hydromorphone HCl (Hydromorphone 1 Mg/1 Ml Inj) 0.25 mg IV Q4H PRN PRN Reason: Pain, Moderate (4-6) Hydromorphone HCl (Hydromorphone 1 Mg/1 Ml Inj) 0.5 mg IV Q24H PRN PRN Reason: Pain , Severe (7-10) Dextrose (D5w) 1,000 mls @ 75 mls/hr IV DIRECT [facility] Last Infusion: 01/30/21 05:04 Dose: Infused Documented by: Piperacillin Sod/Tazobactam Sod (Zosyn/Ns 2.25 Gm/50ml) 2.25 gm in 50 mls @ 100 mls/hr IV Q8H [facility] Last Infusion: 02/01/21 11:27 Dose: Infused Documented by: Ondansetron HCl (Ondansetron 4 Mg/2 Ml Inj) 4 mg IV Q8H PRN PRN Reason: Nausea And Vomiting Simple Syrup (Simple Syrup 15 Ml) 15 ml FEEDTUBE PRN PRN PRN Reason: Hypoglycemia Simple Syrup (Simple Syrup 15 Ml) 30 ml FEEDTUBE PRN PRN PRN Reason: Hypoglycemia Sodium Bicarbonate (Sodium Bicarbonate 325 Mg Tab) 325 mg FEEDTUBE PRN PRN PRN Reason: For Clogged Feeding Tube Sodium Chloride (Sodium Chloride 0.9% 10 Ml Flush Syringe) 10 ml IV BID [facility] Last Admin: 02/01/21 10:27 Dose: 10 ml Documented by: Sodium Chloride (Sodium Chloride 0.9% 10 Ml Flush Syringe) 10 ml IV PRN PRN PRN Reason: LINE FLUSH Sodium Hypochlorite (Sodium Hypochlorite, Dakin's 1/2 Strength (0.25%) 473 Ml Topical Soln) 1 applic TP BID [facility] Last Admin: 02/01/21 10:26 Dose: 1 each Documented by: I HAVE REVIEWED/RECONCILED MEDICATIONS Review of Systems - Review of Systems ROS unobtainable: due to mental status Exam - Constitutional Vital Signs: Temp Pulse Resp BP Pulse Ox 97.4 F L 91 H 16 102/61 92 02/01/21 04:18 01/31/21 18:28 02/01/21 04:18 02/01/21 04:18 01/31/21 20:00 General appearance: cachectic, other (Contracted) - EENT Eyes: PERRL, EOM intact ENT: clear oral mucosa, poor dentition - Neck Neck: supple - Respiratory Respiratory effort: normal Respiratory: bilateral: CTA - Cardiovascular Rhythm: regular Heart Sounds: Present: S1 & S2 Extremities: no ischemia, No edema - Gastrointestinal General gastrointestinal: Present: soft, non-tender, non-distended - Integumentary Integumentary: Present: clear, warm, dry - Neurologic Neurological: other (Contracted, not responsive except with stimulation) - Labs CBC & Chem 7: 01/31/21 09:03 02/01/21 07:45 Lab Results: Laboratory Results - last 24 hr 02/01/21 02/01/21 02/01/21 07:45 11:15 12:06 Sodium 147 H Potassium 3.0 L D Chloride 109.3 H Carbon Dioxide 22 Anion Gap 19 BUN 66 H Creatinine 1.5 H Estimated GFR 33 BUN/Creatinine Ratio 44 Glucose 62 L POC Glucose 33 L 26 L Calcium 7.2 L Assessment and Plan - Patient Problems (1) Abnormal liver enzymes Current Visit: Yes Status: Acute Plan to address problem: - Likely acute ischemia from sepsis and hypotension. - Given low platelets, will get imaging of liver. - Recheck labs in AM, and hepatitis panel. (2) Neurogenic dysphagia Current Visit: Yes Status: Acute Plan to address problem: - PEG appropropriate if family desires. - Will discuss with them after getting RUQ US back.
--- NOTE | 2021-02-01 15:09 | XRay Report ---
ABDOMEN 1 VIEW 02/01/2021 1:51 PM INDICATION / CLINICAL INFORMATION: ng tube placement. COMPARISON: 12:13 PM FINDINGS: TUBES / LINES: Tip of weighted feeding tube is present at the gastroesophageal junction. BOWEL GAS PATTERN: No significant abnormality. FREE AIR / EXTRALUMINAL GAS: None. ADDITIONAL FINDINGS: No significant additional findings. IMPRESSION: 1. Feeding tube at the gastroesophageal junction. Tube should be advanced at least 10 cm into the sto mach. Signer Name: Michelle Bradley MD Signed: 02/01/2021 3:04 PM Workstation Name: [id number]
--- NOTE | 2021-02-01 16:41 | Cat Scan Report ---
CT ABDOMEN AND PELVIS WITHOUT CONTRAST INDICATION: osteomyelitis CONTRAST: Without IV COMPARISON: None available. All CT scans at this location are performed using CT dose reduction for ALARA by means of automated e xposure control. NOTE: There is patient's condition the study was performed in a right lateral decubitus position in t he scanner. There is also significant artifact from the patient's arm and resolution is decreased. Th nikolas factors and the lack of contrast makes evaluation quite difficult. FINDINGS: The bony structures are diffusely sclerotic and additionally show diffuse lytic areas. This combination presumably is related to diffuse metastatic disease which in this female patient will mo st likely would represent breast cancer. Small left and moderate right pleural effusions are seen and bibasilar areas of consolidation and ate lectasis are noted certainly could include pneumonitis. This is more prominent on the right. Pacer is noted. Heart is not significantly enlarged. Nasogastric tube extends into the stomach. No pneumoperitoneum is seen. I do not clearly see evidence of bowel obstruction. Sigmoid diverticulosis is seen. Due to artifact I cannot evaluate well for pos sible inflammation. Liver appears moderately hyperdense or a noncontrast study though measurements ar e not accurate due to significant artifact. Liver and spleen are not significantly enlarged. Atherosc lerotic changes are seen without definite aneurysmal dilatation of the common iliac arteries appear e ctatic. Kidneys are poorly evaluated. Urinary bladder contains dependent high density material which perhaps is from a prior contrast administration though could represent multiple dependent bladder thaddeus culi. Urinary bladder is mildly distended. IMPRESSION: 1. Prominently limited study with very poor resolution and marked artifact making evaluation very dif ficult 2. Bilateral pleural effusions and possible bibasilar pneumonitis 3. Density in the urinary bladder as above without obvious acute change 4. No definite acute change is seen in the abdomen or pelvis but again this is a very poor study. 5. Diffuse sclerosis and bone lysis throughout these osseous system most likely representing diffuse bony metastatic disease, in this female patient suspicious for breast cancer Signer Name: Beny Grant MD Signed: 02/01/2021 4:36 PM Workstation Name: [id number]
--- NOTE | 2021-02-01 16:42 | XRay Report ---
ABDOMEN AP PORTABLE SUPINE 1627 INDICATION: ng tube placement COMPARISON: 02/01/2021 FINDINGS: The feeding tube tip now appears to be below the gastroesophageal junction in the proximal stomach Signer Name: Beny Grant MD Signed: 02/01/2021 4:37 PM Workstation Name: [id number]
--- NOTE | 2021-02-01 18:18 | Ultrasound Report ---
LIMITED RUQ ABDOMINAL ULTRASOUND INDICATION: abnl lft. COMPARISON: CT done on the same day. FINDINGS: Pancreas: Visualized portions show no significant abnormality. Abdominal Aorta: Atherosclerotic calcifications.. IVC: No significant abnormality. Liver: The liver measures 11 cm in length. No significant abnormality. Normal hepatopedal blood flow in the main portal vein. Gallbladder: Not visualized. Bile ducts: No significant abnormality. Common bile duct measures 3.4 mm. Right kidney: No significant abnormality visualized.. Free fluid: Small amount of ascites. Additional Findings: None. IMPRESSION: 1. No definite acute findings. 2. Small amount of abdominal ascites.. Signer Name: Parish Claudio MD Signed: 02/01/2021 6:14 PM Workstation Name: [id number]
[2021-02-01] MEDS: DEXTROSE 50% IN WATER (25GM) 50 ML SYRINGE IV SCH ×3 (19:18→20:27)
[2021-02-01] MEDS: DEXTROSE 5% IN WATER 1,000 ML IV SCH (19:19)
[2021-02-01] MEDS ORDERED: POTASSIUM CHLORIDE ER 20 MEQ TAB PO ONE (20:00)
[2021-02-01] MEDS ORDERED: POTASSIUM CHLORIDE 20 MEQ PACKET FEEDTUBE ONE (21:00)
[2021-02-02] MEDS: PIPERACIL-TAZO 2.25 GM/50 ML 2.25 GM/50 ML BAG IV SCH ×2 (00:26→09:39)
[2021-02-02] MEDS ORDERED: SODIUM CHLORIDE 0.9% 500 ML 500 ML IV ONE (07:30)
[2021-02-02 08:20] LABS: INR 1.47 (0.87-1.13)
[2021-02-02 08:36] LABS: Alanine Aminotransferase 182 units/L (7-56); BUN/Creatinine Ratio 47; Blood Urea Nitrogen 61 mg/dL (7-17); Hemolysis Index 43
[2021-02-02 08:46] LABS: Bilirubin,Direct < 0.2 mg/dL (0-0.2)
[2021-02-02] MEDS: ASCORBIC ACID 500 MG TAB PO SCH (09:35)
[2021-02-02] MEDS: CHOLECALCIFEROL (VIT D3) 1000 UNIT (25 mcg) TAB PO SCH (09:35)
[2021-02-02] MEDS: SODIUM HYPOCHLORITE, DAKIN'S 1/2 STRENGTH (0.25%) 473 ML TOPICAL SOLN TP SCH (09:36)
[2021-02-02] MEDS: DEXTROSE 5% IN WATER 1,000 ML IV SCH (09:36)
[2021-02-02] MEDS ORDERED: POTASSIUM CHLORIDE ER 20 MEQ TAB PO SCH (10:00)
--- NOTE | 2021-02-02 10:12 | Gastroenterology Progress Note ---
Assessment and Plan - Patient Problems (1) Abnormal liver enzymes Current Visit: Yes Status: Acute Plan to address problem: - Likely acute ischemia from sepsis and hypotension. - Noncontrast CT shows small ascites, but no varices; liver/spleen normal size. - No major contraindication to PEG tube, but will assess for varices at endoscopy. (2) Neurogenic dysphagia Current Visit: Yes Status: Acute Plan to address problem: - PEG desired by family (d/w daughter Ms Chambers). - Will schedule tomorrow if K/INR acceptable. Subjective Date of service: 02/02/21 Principal diagnosis: Neurogenic Dysphagia Interval history: The patient is stable overnight. No blood in bowel movements, and no fevers. Tolerating tube feeds. Objective - Constitutional Vitals: Temp Pulse Resp BP Pulse Ox 97.7 F 84 14 96/44 100 02/02/21 09:42 02/02/21 09:42 02/02/21 09:42 02/02/21 09:42 02/02/21 09:42 General appearance: no acute distress - Respiratory Respiratory effort: normal Respiratory: bilateral: CTA - Cardiovascular Rhythm: regular Heart Sounds: Present: S1 & S2 - Gastrointestinal General gastrointestinal: Present: soft, non-tender, non-distended - Labs CBC & Chem 7: 01/31/21 09:03 02/02/21 07:38 Labs: Laboratory Results - last 24 hr 02/01/21 02/01/21 02/01/21 11:15 12:06 17:34 PT INR Sodium Potassium Chloride Carbon Dioxide Anion Gap BUN Creatinine Estimated GFR BUN/Creatinine Ratio Glucose POC Glucose 33 L 26 L < 10 L Calcium Total Bilirubin Direct Bilirubin Indirect Bilirubin AST ALT Alkaline Phosphatase Total Protein Albumin Albumin/Globulin Ratio 02/01/21 02/01/21 02/01/21 19:22 20:34 23:26 PT INR Sodium Potassium Chloride Carbon Dioxide Anion Gap BUN Creatinine Estimated GFR BUN/Creatinine Ratio Glucose 311 H POC Glucose 106 H 166 H Calcium Total Bilirubin Direct Bilirubin Indirect Bilirubin AST ALT Alkaline Phosphatase Total Protein Albumin Albumin/Globulin Ratio 02/01/21 02/02/21 02/02/21 23:41 07:36 07:38 PT INR Sodium 144 Potassium 2.8 L* Chloride 105.5 Carbon Dioxide 23 Anion Gap 18 BUN 61 H Creatinine 1.3 H Estimated GFR 39 BUN/Creatinine Ratio 47 Glucose 82 POC Glucose 223 H 78 Calcium 7.0 L Total Bilirubin 0.20 Direct Bilirubin < 0.2 Indirect Bilirubin 0.0 AST 217 H ALT 182 H Alkaline Phosphatase 839 H Total Protein 4.3 L Albumin 2.0 L Albumin/Globulin Ratio 0.9 02/02/21 07:38 PT 18.4 H INR 1.47 H Sodium Potassium Chloride Carbon Dioxide Anion Gap BUN Creatinine Estimated GFR BUN/Creatinine Ratio Glucose POC Glucose Calcium Total Bilirubin Direct Bilirubin Indirect Bilirubin AST ALT Alkaline Phosphatase Total Protein Albumin Albumin/Globulin Ratio
[2021-02-02] MEDS ORDERED: POTASSIUM CHLORIDE 20 MEQ 20 MEQ/100 ML BAG IV SCH (11:00)
--- NOTE | 2021-02-02 11:02 | Anesthesia Consultation ---
Anesthesia Consult and Med Hx Date of service: 02/02/21 - Pulmonary Exam CTA: Yes (diminished bilaterally ) - Cardiac Exam Cardiac Exam: RRR Anesthetic Concerns: unable to assess airway - Pre-Operative Health Status ASA Pre-Surgery Classification: ASA4 Proposed Anesthetic Plan: MAC - Pre-Anesthesia Comment Pre-Anesthesia Comments: admitted from custodial facility with андрей pneumonia and sepsis. hx of cerebral atherosclerosis, vascular dementia, sacral decubitus ulcer. - Pulmonary Hx Respiratory Symptoms: Yes Hx Pneumonia: Yes - Endocrine Hx Renal Disease: Yes (ARF Cr 1.3 ) Hx Liver Disease: Yes - Other Systems Hx Cancer: Yes (multiple myeloma ) - Additional Comments Anesthesia Medical History Comments: 02/02. K+2.8. INR 1.47
[2021-02-02] MEDS: PHYTONADIONE 5 MG/0.5 ML *ORAL LIQUID PO SCH (12:15)
[2021-02-02] MEDS: POTASSIUM CHLORIDE 10 MEQ 10 MEQ/100 ML BAG IV SCH ×6 (13:05→20:48)
[2021-02-02] MEDS: SIMPLE SYRUP 15 ML FEEDTUBE PRN (14:01)
--- NOTE | 2021-02-02 14:47 | Progress Note ---
Assessment and Plan Cultures: 01/26/2021 blood culture: No growth 01/31/2021 right foot culture: No growth Assessment: 85-year-old female with history of dementia, cementation, sacral decubitus ulcer, admitted on 01/26/2021 secondary to a week history of decreased responsiveness and generalized weakness associated with shortness of breath: #Sepsis: persistent leukocytosis; likely due to bilateral pneumonia. #Bilateral pneumonia: SARS-CoV-2 PCR negative. Aspiration?. #SUDHIR: Renally adjust antibiotics. Not better #Extensive bony sclerotic lesions: ?MM /metastatic disease #AMS: not better. #Anemia/thrombocytopenia: worsening #Right hip trochanter and right medial foot pressure ulcers: s/p Excisional debridement by general surgery. No osteomyelitis noted on CT. #Malnutrition Recommendations: -Continue zosyn, D4 of 7 -Wound care consult -Offloading, nutritional optimization as possible -Work-up for extensive bony sclerotic lesions and suspected metastatic disease per primary -Patient is DNR, family does not want comfort measure or hospice. Pressure ulcers unlikely to heal. Extremely poor prognosis Gonzalez Schulte MD, FACP [facility], [place], [facility] O: [phone] F: [phone] Subjective Date of service: 02/02/21 Principal diagnosis: Neurogenic Dysphagia Interval history: Afebrile. Nonverbal. Objective - Exam Narrative Exam: Physical Exam: Constitutional: Drowsy, cachexia with temporal wasting Head, Ears, Nose: Normocephalic, atraumatic. External ears, nose normal Eyes: Conjunctivae/corneas clear. No icterus. No ptosis. Neck: Supple, no meningeal signs Cardiovascular: S1, S2 + Respiratory: Good air entry, clear to auscultation bilaterally GI: Soft, non-tender; bowel sounds normal. No peritoneal signs Musculoskeletal: No pedal edema, no cyanosis. Cachexia with wasting of all extremities Skin: Decubiti with dressings Hem/Lymphatic: No palpable cervical or supraclavicular nodes. No lymphangitis Psych: No agitation Neurological: Drowsy, nonverbal - Constitutional Vitals: Vital Signs Temp Pulse Resp BP Pulse Ox 97.7 F 84 14 96/44 100 02/02/21 09:42 02/02/21 09:42 02/02/21 09:42 02/02/21 09:42 02/02/21 11:55 Temperature -Last 24 Hours Temperature 97.7 F Temperature 95.7 F Temperature 92.8 F Temperature 91.0 F - Labs CBC & Chem 7: 01/31/21 09:03 02/02/21 07:38 Labs: Abnormal lab results 02/01/21 02/01/21 02/01/21 Range/Units 17:34 19:22 20:34 PT (12.2-14.9) Sec. INR (0.87-1.13) Potassium (3.6-5.0) mmol/L BUN (7-17) mg/dL Creatinine (0.6-1.2) mg/dL Glucose (65-100) mg/dL POC Glucose < 10 L 106 H 166 H (70-105) mg/dL Calcium (8.4-10.2) mg/dL AST (5-40) units/L ALT (7-56) units/L Alkaline Phosphatase (35-129) units/L Total Protein (6.3-8.2) g/dL Albumin (3.9-5) g/dL 02/01/21 02/01/21 02/02/21 Range/Units 23:26 23:41 07:38 PT (12.2-14.9) Sec. INR (0.87-1.13) Potassium 2.8 L* (3.6-5.0) mmol/L BUN 61 H (7-17) mg/dL Creatinine 1.3 H (0.6-1.2) mg/dL Glucose 311 H (65-100) mg/dL POC Glucose 223 H (70-105) mg/dL Calcium 7.0 L (8.4-10.2) mg/dL AST 217 H (5-40) units/L ALT 182 H (7-56) units/L Alkaline Phosphatase 839 H (35-129) units/L Total Protein 4.3 L (6.3-8.2) g/dL Albumin 2.0 L (3.9-5) g/dL 02/02/21 02/02/21 02/02/21 Range/Units 07:38 13:29 14:40 PT 18.4 H (12.2-14.9) Sec. INR 1.47 H (0.87-1.13) Potassium (3.6-5.0) mmol/L BUN (7-17) mg/dL Creatinine (0.6-1.2) mg/dL Glucose (65-100) mg/dL POC Glucose 52 L 69 L (70-105) mg/dL Calcium (8.4-10.2) mg/dL AST (5-40) units/L ALT (7-56) units/L Alkaline Phosphatase (35-129) units/L Total Protein (6.3-8.2) g/dL Albumin (3.9-5) g/dL
--- NOTE | 2021-02-02 14:50 | Progress Note ---
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 Patient has diminished cognition at the time my evaluation and is unable to provide history. Patient history provided by EMS staff, ED staff, long term facility staff, as well as patient daughter who was made available by telephone for interview. As per daughter she was notified by long term facility staff today and informed that the patient "was getting sick". The patient has experienced decreased responsiveness as well as increased weakness over the past 1 week with acute worsening of symptoms over the past 1 day. EMS was notified and upon arrival the patient was found to be in distress and was subsequently transported to [facility] for further care and evaluation of the aforementioned symptoms. The patient was seen and evaluated in the emergency department. All lab and imaging studies reviewed. Patient was found to have a pulse oximetry of 85% on room air which is consistent with acute hypoxemic respiratory failure. A chest x-ray revealed bilateral pneumonia. The patient was also found to have sepsis, acute kidney injury, as well as severe hypernatremia. The patient was admitted to medical floor and initiated on sepsis protocol, pneumonia protocol, as well as coronavirus protocol. No further history is obtainable. The patient has diminished cognition but has a positive gag reflex and is able to protect her airway without difficulty the time my evaluation. Advanced care planning conducted in ED. Hospital course to date 01/27: Patient seen and examined, very lethargic, and appears deconditioned and dry. - ID and Nephrology consult - Gentle hydration while awaiting COVID testing. - Monitor Platelet level - Follow cultures. - Q2H turns 01/28: Patient seen and examined unable to get Dobbhoff yesterday the nurse yesterday said that he was able to tolerate pured diet as recommended by speech therapist. Although today's nurse reports that the patient is not tolerating so we will try the Dobbhoff again. We will continue to reevaluate and on my examination he actually opens her mouth and responds to some questions recommended we try assistance with feeding again today. Renal function showing some improvement ID input appreciated continue antibiotics at this time. Leukocytosis still worse we will recheck. Assessment: 85-year-old female with history of dementia, cementation, sacral decubitus ulcer, admitted on 01/26/2021 secondary to a week history of decreased responsiveness and generalized weakness associated with shortness of breath 01/29/21 Patient is seen and examined. Patient is awake alert but demented. Patient pulled out the Dobbhoff tube. Will reinsert the Dobbhoff tube today and if possible start feeding. If needed will put the patient on restraint. Continue current management. Nutritional evaluation. Recheck CBC CMP in the morning. Nephrology follow-up. Assessment: 85-year-old female with history of dementia, cementation, sacral decubitus ulcer, admitted on 01/26/2021 secondary to a week history of decreased responsiveness and generalized weakness associated with shortness of breath: 01/30: Patient seen and examined, she is staill very leathrgic, tube feed is ongoing, unfortunately worsening metabolic acidosis. I spoke to the patients daughter and discussed overall medical condition, while they maintained DNR, they do not want comfort measure or hospice. I also advised that patient is having liver failure. Will further evaluate the liver Nephrology input appreciated. Will await Wound care evaluation and may need a surgical eval of the multiple wounds for possible debridement. Aspiration precautions Poor prognosis 01/31: Continues to be lethargic . Very frail . Surgery consulted for wound care evaluation. Prognosis remains poor. Bedside excision completed by surgery. ID consultation obtained. 02/01/2021: Patient continues to be lethargic. Blood sugar is noted to be low with reading of 20. Ordered glucagon 1 mg IV x1. Patient had not been receiv ing tube feeds due to her pulling Dobbhoff. Speech therapy recommends PEG tube placement. GI consulted for elevated transaminases and PEG tube placement. Will follow recs. 02/02/2021: ID and GI recs noted. GI will plan for PEG tube tomorrow. Continuing zosyn. Poor prognosis. (1) Sepsis Current Visit: Yes Status: Acute Plan to address problem: Sepsis protocol: IV antibiotic therapy, IV fluid resuscitation therapy, serial lactic acid level, monitor urine output every shift, monitor fluid balance, ma intain mean arterial pressure greater than equal 65, blood culture. Pressure ulcers unlikely per surgery ?Osteomyelitis- CTAP ordered Continue Zosyn IV. (2) Suspected 2019 novel coronavirus infection Current Visit: Yes Status: Acute Plan to address problem: Coronavirus protocol: IV steroid therapy, IV antibiotic therapy, supplemental oxygen, pulse oximetry, contact precautions, isolation precautions, nebulizer therapy, vitamin C therapy, vitamin D therapy, zinc therapy, (3) Severe malnutrition Current Visit: Yes Status: Acute Plan to address problem: Dietary supplementation, supportive care. (4) Hypernatremia Current Visit: Yes Status: Acute Plan to address problem: IV fluid resuscitation therapy, BMP, repeat BMP in a.m. (5) Acute kidney injury (SUDHIR) with acute tubular necrosis (ATN) Current Visit: Yes Status: Acute Plan to address problem: BMP, IV fluid resuscitation therapy, repeat BMP in a.m. to monitor serum creatinine as well as GFR (6) Multiple myeloma Current Visit: Yes Status: Acute Qualifiers: Multiple myeloma remission status: unspecified Qualified Code(s): C90.00 - Multiple myeloma not having achieved remission Plan to address problem: Supportive care, lytic bone lesions on x-ray. Patient family informed. No intervention desired. ID recommends CTAP. Will order (7) Bilateral pneumonia Current Visit: Yes Status: Acute Plan to address problem: Pneumonia protocol: Chest x-ray, CBC, CMP, supplemental oxygen, pulse oximetry, nebulizer therapy, blood culture. IV antibiotic therapy. (8) Multiple Pressure ulcer, Sacral Decubitus Ulcer - s/p bedside debridement by surgery. - low suspicion for source of sepsis, leukocytosis. (9) Anemia (10)Lactic Acidosis 11) Transaminits AST: 1184, ALT: 397. Was normal on admission Follow hepatitis serology D/c all hepatotoxic agents. GI consulted to evaluate (12) Advance care planning Current Visit: Yes Status: Acute Plan to address problem: Disease education conducted, care plan discussed, diagnosis discussed, poor prognosis discussed. Patient daughter Emy Chambers informed of patient prognosis. Patient is DNR. Patient daughter elects to have medical therapy at this time. Patient daughter made aware that patient may not tolerate therapy and current therapy may hasten patient demise. Patient daughter acknowledges understanding instructions patient daughter acknowledges understanding and agreement with current care plan. +30 minutes. (13)DVT prophylaxis Current Visit: Yes Status: Acute Plan to address problem: SCD to bilateral lower extremities while in bed History Interval history: No overnight events or changes in clinical picture. Hospitalist Physical - Physical exam Narrative exam: Narrative exam: General appearance: Present: mild distress, contracted - EENT ENT: hearing decreased, other, dry mucus membrane - Neck Neck: Present: supple, normal ROM - Respiratory Respiratory effort: labored Respiratory: bilateral: diminished, rhonchi - Cardiovascular Rhythm: regular Heart Sounds: Present: S1 & S2 - Extremities Extremities: pulses symmetrical, No edema Extremity abnormal: ulceration Peripheral Pulses: abnormal (Capillary refill greater than 3.5 seconds) - Abdominal General gastrointestinal: Present: soft, non-tender, non-distended, normal bowel sounds Female genitourinary: Present: normal - Integumentary Integumentary: Present: multiple ecchymotic injury, clear, dry, clammy, decr eased turgor - Musculoskeletal Musculoskeletal: generalized weakness - Psychiatric Psychiatric: no appropriate mood/affect, no intact judgment & insight, no memory intact - Neurologic Neurologic: no gait normal - Constitutional Vitals: Temp Pulse Resp BP Pulse Ox 97.7 F 84 14 96/44 100 02/02/21 09:42 02/02/21 09:42 02/02/21 09:42 02/02/21 09:42 02/02/21 11:55 General appearance: Present: mild distress Results - Labs CBC & Chem 7: 01/31/21 09:03 02/02/21 07:38 Labs: Laboratory Last Values WBC 18.0 K/mm3 (4.5-11.0) H 01/31/21 09:03 RBC 2.15 M/mm3 (3.65-5.03) L 01/31/21 09:03 Hgb 6.8 gm/dl (10.1-14.3) L 01/31/21 09:03 Hct 20.6 % (30.3-42.9) L 01/31/21 09:03 MCV 96 fl (79-97) 01/31/21 09:03 MCH 32 pg (28-32) 01/31/21 09:03 MCHC 33 % (30-34) 01/31/21 09:03 RDW 23.7 % (13.2-15.2) H 01/31/21 09:03 Plt Count 106 K/mm3 (140-440) L 01/31/21 09:03 Lymph % (Auto) Music Copyist 01/30/21 08:09 [place] % (Auto) Music Copyist 01/30/21 08:09 Eos % (Auto) Music Copyist 01/30/21 08:09 Baso % (Auto) Music Copyist 01/30/21 08:09 Lymph # (Auto) Music Copyist 01/30/21 08:09 [place] # (Auto) Music Copyist 01/30/21 08:09 Eos # (Auto) Music Copyist 01/30/21 08:09 Baso # (Auto) Music Copyist 01/30/21 08:09 Add Manual Diff Complete 01/30/21 08:09 Total Counted 100 01/30/21 08:09 Seg Neutrophils % Music Copyist 01/30/21 08:09 Seg Neuts % (Manual) 71.0 % (40.0-70.0) H 01/30/21 08:09 Band Neutrophils % 10.0 % 01/30/21 08:09 Lymphocytes % (Manual) 9.0 % (13.4-35.0) L 01/30/21 08:09 Reactive Lymphs % (Man) 1.0 % 01/30/21 08:09 Monocytes % (Manual) 4.0 % (0.0-7.3) 01/27/21 18:10 Eosinophils % (Manual) 1.0 % (0.0-4.3) 01/30/21 08:09 Basophils % (Manual) 0.5 % (0.0-1.8) 01/27/21 18:10 Metamyelocytes % 7.0 % 01/30/21 08:09 Myelocytes % 1.0 % 01/30/21 08:09 Nucleated RBC % 1.0 % (0.0-0.9) H 01/30/21 08:09 Seg Neutrophils # Music Copyist 01/30/21 08:09 Seg Neutrophils # Man 15.1 K/mm3 (1.8-7.7) H 01/30/21 08:09 Band Neutrophils # 2.1 K/mm3 01/30/21 08:09 Lymphocytes # (Manual) 1.9 K/mm3 (1.2-5.4) 01/30/21 08:09 Abs React Lymphs (Man) 0.2 K/mm3 01/30/21 08:09 Monocytes # (Manual) 0.0 K/mm3 (0.0-0.8) 01/30/21 08:09 Eosinophils # (Manual) 0.2 K/mm3 (0.0-0.4) 01/30/21 08:09 Basophils # (Manual) 0.0 K/mm3 (0.0-0.1) 01/30/21 08:09 Metamyelocytes # 1.5 K/mm3 01/30/21 08:09 Myelocytes # 0.2 K/mm3 01/30/21 08:09 Promyelocytes # 0.0 K/mm3 01/30/21 08:09 Blast Cells # 0.0 K/mm3 01/30/21 08:09 WBC Morphology Not Reportable 01/30/21 08:09 Hypersegmented Neuts Not Reportable 01/30/21 08:09 Hyposegmented Neuts Not Reportable 01/30/21 08:09 Hypogranular Neuts Not Reportable 01/30/21 08:09 Smudge Cells Not Reportable 01/30/21 08:09 Toxic Granulation Not Reportable 01/30/21 08:09 Toxic Vacuolation Not Reportable 01/30/21 08:09 Dohle Bodies Not Reportable 01/30/21 08:09 Pelger-Huet Anomaly Not Reportable 01/30/21 08:09 Francisco J Rods Not Reportable 01/30/21 08:09 Platelet Estimate Consistent w auto 01/30/21 08:09 Clumped Platelets Not Reportable 01/30/21 08:09 Plt Clumps, EDTA Not Reportable 01/30/21 08:09 Large Platelets Not Reportable 01/30/21 08:09 Giant Platelets Not Reportable 01/30/21 08:09 Platelet Satelliting Not Reportable 01/30/21 08:09 Plt Morphology Comment Not Reportable 01/30/21 08:09 RBC Morphology Not Reportable 01/30/21 08:09 Dimorphic RBCs Not Reportable 01/30/21 08:09 Polychromasia Not Reportable 01/30/21 08:09 Hypochromasia Not Reportable 01/30/21 08:09 Poikilocytosis Not Reportable 01/30/21 08:09 Anisocytosis 2+ 01/30/21 08:09 Microcytosis Not Reportable 01/30/21 08:09 Macrocytosis 1+ 01/30/21 08:09 Spherocytes Not Reportable 01/30/21 08:09 Pappenheimer Bodies Not Reportable 01/30/21 08:09 Sickle Cells Not Reportable 01/30/21 08:09 Target Cells Not Reportable 01/30/21 08:09 Tear Drop Cells Not Reportable 01/30/21 08:09 Ovalocytes Not Reportable 01/30/21 08:09 Helmet Cells Not Reportable 01/30/21 08:09 [place] Bodies Not Reportable 01/30/21 08:09 [place] Rings Not Reportable 01/30/21 08:09 [place] Cells 1+ 01/30/21 08:09 Bite Cells Not Reportable 01/30/21 08:09 Crenated Cell Not Reportable 01/30/21 08:09 Elliptocytes Not Reportable 01/30/21 08:09 Acanthocytes (Spur) Not Reportable 01/30/21 08:09 Rouleaux Not Reportable 01/30/21 08:09 Hemoglobin C Crystals Not Reportable 01/30/21 08:09 Schistocytes Not Reportable 01/30/21 08:09 Malaria parasites Not Reportable 01/30/21 08:09 Garry Bodies Not Reportable 01/30/21 08:09 Hem Pathologist Commnt No 01/30/21 08:09 PT 18.4 Sec. (12.2-14.9) H 02/02/21 07:38 INR 1.47 (0.87-1.13) H 02/02/21 07:38 ABG pH 7.409 pH Units (7.350-7.450) 01/30/21 18:04 ABG pCO2 32.7 mm Hg 01/30/21 18:04 ABG pO2 119.3 mm Hg (80.0-90.0) H 01/30/21 18:04 ABG HCO3 20.2 mmol/L (20.0-26.0) 01/30/21 18:04 ABG O2 Saturation 98.3 % (95.0-99.0) 01/30/21 18:04 ABG O2 Content 8.3 (0.0-44) 01/30/21 18:04 ABG Base Excess -4.1 mmol/L (-2.0-3.0) L 01/30/21 18:04 ABG Hemoglobin 5.9 gm/dl (12.0-16.0) L 01/30/21 18:04 ABG Carboxyhemoglobin 1.3 % (0.0-5.0) 01/30/21 18:04 ABG Methemoglobin 0.1 % (0.0-1.5) 01/30/21 18:04 Oxyhemoglobin 96.9 % (95.0-99.0) 01/30/21 18:04 FiO2 36 % 01/30/21 18:04 Sodium 144 mmol/L (137-145) 02/02/21 07:38 Potassium 2.8 mmol/L (3.6-5.0) L* 02/02/21 07:38 Chloride 105.5 mmol/L (98-107) 02/02/21 07:38 Carbon Dioxide 23 mmol/L (22-30) 02/02/21 07:38 Anion Gap 18 mmol/L 02/02/21 07:38 BUN 61 mg/dL (7-17) H 02/02/21 07:38 Creatinine 1.3 mg/dL (0.6-1.2) H 02/02/21 07:38 Estimated GFR 39 ml/min 02/02/21 07:38 BUN/Creatinine Ratio 47 % 02/02/21 07:38 Glucose 82 mg/dL (65-100) 02/02/21 07:38 POC Glucose 69 mg/dL (70-105) L 02/02/21 14:40 Lactic Acid 1.30 mmol/L (0.7-2.0) 01/27/21 18:10 Calcium 7.0 mg/dL (8.4-10.2) L 02/02/21 07:38 Total Bilirubin 0.20 mg/dL (0.1-1.2) 02/02/21 07:38 Direct Bilirubin < 0.2 mg/dL (0-0.2) 02/02/21 07:38 Indirect Bilirubin 0.0 mg/dL 02/02/21 07:38 AST 217 units/L (5-40) H 02/02/21 07:38 ALT 182 units/L (7-56) H 02/02/21 07:38 Alkaline Phosphatase 839 units/L (35-129) H 02/02/21 07:38 Total Protein 4.3 g/dL (6.3-8.2) L 02/02/21 07:38 Albumin 2.0 g/dL (3.9-5) L 02/02/21 07:38 Albumin/Globulin Ratio 0.9 % 02/02/21 07:38 Coronavirus (PCR) Negative (Negative) 01/27/21 08:30 Blood Type O POSITIVE 01/26/21 19:56 Antibody Screen Negative 01/26/21 19:56 Microbiology: Microbiology 01/31/21 15:35 Foot - Right Wound Culture - Preliminary Sorto/IV: Voiding Method Incontinent Active Medications - Current Medications Current Medications: Generic Name Dose Route Start Last Admin Trade Name Freq PRN Reason Stop Dose Admin Albuterol 2.5 mg 01/26/21 18:10 Albuterol 2.5 Mg/3 Ml Nebu IH Q4HRT PRN Shortness Of Breath Lipase/Protease/Amylase 1 each 01/27/21 11:00 Lipase 10,500/Protease 25,000/Amylase 43,750 (Units) Dr Joseph FEEDTUBE PRN PRN For Clogged Feeding Tube Ascorbic Acid 500 mg 01/26/21 22:00 02/02/21 09:35 Ascorbic Acid 500 Mg Tab PO 500 mg BID VINOD Administration Cholecalciferol 1,000 unit 01/27/21 10:00 02/02/21 09:35 Cholecalciferol (Vit D3) 1000 Unit (25 Mcg) Tab PO 1,000 unit QDAY VINOD Administration Dextrose 50 ml 02/01/21 18:00 02/01/21 20:27 Dextrose 50% In Water (25gm) 50 Ml Syringe IV 02/03/21 18:01 50 ml Q30MIN VINOD Administration Protocol Hydromorphone HCl 0.25 mg 01/26/21 18:10 Hydromorphone 1 Mg/1 Ml Inj IV Q4H PRN Pain, Moderate (4-6) Hydromorphone HCl 0.5 mg 01/26/21 18:10 Hydromorphone 1 Mg/1 Ml Inj IV Q24H PRN Pain , Severe (7-10) Dextrose 1,000 mls @ 75 mls/hr 01/28/21 13:00 02/02/21 09:36 D5w IV 75 mls/hr DIRECT VINOD Administration Potassium Chloride 10 meq in 100 mls @ 100 mls/hr 02/02/21 12:00 02/02/21 14:00 Kcl 10meq/100ml IV 02/02/21 17:59 100 mls/hr Q1H VINOD Administration Piperacillin Sod/Tazobactam Sod 2.25 gm in 50 mls @ 100 mls/hr 02/02/21 18:00 Zosyn/Ns 2.25 Gm/50ml IV Q6HR VINOD Ondansetron HCl 4 mg 01/26/21 18:10 Ondansetron 4 Mg/2 Ml Inj IV Q8H PRN Nausea And Vomiting Phytonadione 5 mg 02/02/21 11:00 02/02/21 12:15 Phytonadione 5 Mg/0.5 Ml *Oral Liquid* PO 02/04/21 10:01 5 mg DAILY VINOD Administration Simple Syrup 15 ml 01/27/21 11:00 Simple Syrup 15 Ml FEEDTUBE PRN PRN Hypoglycemia Simple Syrup 30 ml 01/27/21 11:00 02/02/21 14:01 Simple Syrup 15 Ml FEEDTUBE 30 ml PRN PRN Administration Hypoglycemia Sodium Bicarbonate 325 mg 01/27/21 11:00 Sodium Bicarbonate 325 Mg Tab FEEDTUBE PRN PRN For Clogged Feeding Tube Sodium Chloride 10 ml 01/26/21 22:00 02/02/21 12:15 Sodium Chloride 0.9% 10 Ml Flush Syringe IV 10 ml BID VINOD Administration Sodium Chloride 10 ml 01/26/21 18:10 Sodium Chloride 0.9% 10 Ml Flush Syringe IV PRN PRN LINE FLUSH Sodium Hypochlorite 1 applic 02/01/21 10:00 02/02/21 09:36 Sodium Hypochlorite, Dakin's 1/2 Strength (0.25%) 473 Ml Topical Soln TP 1 applicatio BID VINOD Administration Nutrition/Malnutrition Assess - Dietary Evaluation Nutrition/Malnutrition Findings: Nutrition Notes Start: 01/27/21 10:34 Freq: Status: Active Protocol: Document 02/01/21 11:47 (Rec: 02/01/21 11:48 [id number]) Nutrition Notes Initial or Follow up Brief Note Current Diagnosis Acute Kidney Injury,Sepsis, Malnutrition Other Pertinent Diagnosis FTT, multiple myeloma Current Diet Nepro 1.8 at 28 ml/hr, pureed Subjective/Other Information RN reports TF off due to NGT not in correct place and she will order KUB. Nutrition Intervention Follow-Up By: 02/03/21 Additional Comments F/u: TF restart and tolerance
[2021-02-02 15:00] LABS: Hepatitis C Virus Antibody Non-Reactive (NonReactive)
--- NOTE | 2021-02-02 15:25 | XRay Report ---
ABDOMEN 1 VIEW(S) INDICATION / CLINICAL INFORMATION: confirm NGT placement. COMPARISON: KUB from 01/29/2021 FINDINGS: TUBES / LINES: The Dobbhoff tube was retracted near the GE junction level and should be advanced at l east 10 cm into the duodenum. BOWEL GAS PATTERN: No significant abnormality. FREE AIR / EXTRALUMINAL GAS: None seen. ADDITIONAL FINDINGS: No significant additional findings. IMPRESSION: 1. DHT as above. Signer Name: Darek Chang MD Signed: 02/02/2021 3:21 PM Workstation Name: [id number]
[2021-02-02 15:51] LABS: Hepatitis B Surface Antigen Nonreactive (Negative)
--- NOTE | 2021-02-02 17:37 | Progress Note ---
Assessment and Plan Impression: * Acute kidney injury secondary to prerenal azotemia due to dehydration * Sepsis * Bilateral PNA (COVID PCR negative) * Hypokalemia * Hypernatremia * Decubitus ulcer * Hx of Multiple myeloma Plan: * Replete K, recheck labs this evening * Continue D5W * Recommend NG tube placement/PEG and free water replacement - 400 ml Q3h * Transfuse for hgb < 7 * Keep MAP>65 * Abx per ID * Dose medications for renal function * Avoid potential nephrotoxins * Strict I/O * AM labs * Prognosis is guarded Subjective Date of service: 02/02/21 Principal diagnosis: Neurogenic Dysphagia Interval history: Nursing, interdisciplinary and consult notes were reviewed Vitals, input and output, medications and labs were reviewed Remains non-verbal, lying in position Objective - Exam Narrative Exam: General: No acute distress HEENT: Oral mucosa moist Neck: Supple, no JVD Chest: Clear to auscultation bilaterally Heart: RRR, S1 and S2, no pericardial rub Abdomen: Soft, nontender, no renal bruit Extremity: No peripheral cyanosis, edema Neurological: Alert, awake, no asterixis Dermatology: No skin rash Psych: No agitation Musculoskeletal: No joint effusion - Vital Signs Vital signs: Vital Signs - 12hr 02/02/21 02/02/21 02/02/21 06:34 06:35 09:42 Temperature 95.7 F L 97.7 F Pulse Rate 76 84 Respiratory 18 14 Rate Blood Pressure 77/36 96/44 [Right] O2 Sat by Pulse 92 100 Oximetry 02/02/21 02/02/21 11:55 16:00 Temperature Pulse Rate Respiratory Rate Blood Pressure [Right] O2 Sat by Pulse 100 100 Oximetry - Lab 01/31/21 09:03 02/02/21 07:38 Most recent lab results ABG pH 7.409 pH Units (7.350-7.450) 01/30/21 18:04 ABG pCO2 32.7 mm Hg 01/30/21 18:04 ABG pO2 119.3 mm Hg (80.0-90.0) H 01/30/21 18:04 ABG HCO3 20.2 mmol/L (20.0-26.0) 01/30/21 18:04 ABG O2 Saturation 98.3 % (95.0-99.0) 01/30/21 18:04 Calcium 7.0 mg/dL (8.4-10.2) L 02/02/21 07:38 Medications & Allergies - Medications Allergies/Adverse Reactions: Allergies No Known Allergies Allergy (Verified 01/26/21 16:32) Home Medications: Home Medications Medication Instructions Recorded Confirmed Last Taken Type No Known Home Medications [No 01/28/21 01/28/21 Unknown History Reported Home Medications] Active Medications: Generic Name Dose Route Start Last Admin Trade Name Freq PRN Reason Stop Dose Admin Albuterol 2.5 mg 01/26/21 18:10 Albuterol 2.5 Mg/3 Ml Nebu IH Q4HRT PRN Shortness Of Breath Lipase/Protease/Amylase 1 each 01/27/21 11:00 Lipase 10,500/Protease 25,000/Amylase 43,750 (Units) Dr Joseph FEEDTUBE PRN PRN For Clogged Feeding Tube Ascorbic Acid 500 mg 01/26/21 22:00 02/02/21 09:35 Ascorbic Acid 500 Mg Tab PO 500 mg BID VINOD Administration Cholecalciferol 1,000 unit 01/27/21 10:00 02/02/21 09:35 Cholecalciferol (Vit D3) 1000 Unit (25 Mcg) Tab PO 1,000 unit QDAY VINOD Administration Dextrose 50 ml 02/01/21 18:00 02/01/21 20:27 Dextrose 50% In Water (25gm) 50 Ml Syringe IV 02/03/21 18:01 50 ml Q30MIN VINOD Administration Protocol Hydromorphone HCl 0.25 mg 01/26/21 18:10 Hydromorphone 1 Mg/1 Ml Inj IV Q4H PRN Pain, Moderate (4-6) Hydromorphone HCl 0.5 mg 01/26/21 18:10 Hydromorphone 1 Mg/1 Ml Inj IV Q24H PRN Pain , Severe (7-10) Dextrose 1,000 mls @ 75 mls/hr 01/28/21 13:00 02/02/21 09:36 D5w IV 75 mls/hr DIRECT VINOD Administration Potassium Chloride 10 meq in 100 mls @ 100 mls/hr 02/02/21 12:00 02/02/21 17:25 Kcl 10meq/100ml IV 02/02/21 17:59 100 mls/hr Q1H VINOD Administration Piperacillin Sod/Tazobactam Sod 2.25 gm in 50 mls @ 100 mls/hr 02/02/21 18:00 Zosyn/Ns 2.25 Gm/50ml IV Q6HR VINOD Ondansetron HCl 4 mg 01/26/21 18:10 Ondansetron 4 Mg/2 Ml Inj IV Q8H PRN Nausea And Vomiting Phytonadione 5 mg 02/02/21 11:00 02/02/21 12:15 Phytonadione 5 Mg/0.5 Ml *Oral Liquid* PO 02/04/21 10:01 5 mg DAILY VINOD Administration Simple Syrup 15 ml 01/27/21 11:00 Simple Syrup 15 Ml FEEDTUBE PRN PRN Hypoglycemia Simple Syrup 30 ml 01/27/21 11:00 02/02/21 14:01 Simple Syrup 15 Ml FEEDTUBE 30 ml PRN PRN Administration Hypoglycemia Sodium Bicarbonate 325 mg 01/27/21 11:00 Sodium Bicarbonate 325 Mg Tab FEEDTUBE PRN PRN For Clogged Feeding Tube Sodium Chloride 10 ml 01/26/21 22:00 02/02/21 12:15 Sodium Chloride 0.9% 10 Ml Flush Syringe IV 10 ml BID VINOD Administration Sodium Chloride 10 ml 01/26/21 18:10 Sodium Chloride 0.9% 10 Ml Flush Syringe IV PRN PRN LINE FLUSH Sodium Hypochlorite 1 applic 02/01/21 10:00 02/02/21 09:36 Sodium Hypochlorite, Dakin's 1/2 Strength (0.25%) 473 Ml Topical Soln TP 1 applicatio BID VINOD Administration
[2021-02-02 19:59] LABS: Calcium 7.2 mg/dL (8.4-10.2)
[2021-02-03] MEDS: ASCORBIC ACID 500 MG TAB PO SCH ×2 (00:02→10:32)
[2021-02-03] MEDS: SODIUM HYPOCHLORITE, DAKIN'S 1/2 STRENGTH (0.25%) 473 ML TOPICAL SOLN TP SCH ×2 (00:08→10:31)
[2021-02-03] MEDS: PIPERACIL-TAZO 2.25 GM/50 ML 2.25 GM/50 ML BAG IV SCH ×2 (00:09→06:39)
[2021-02-03 06:15] LABS: Mean Corpuscular Volume 94 fl (79-97); Red Blood Count 2.05 M/mm3 (3.65-5.03)
[2021-02-03 06:31] LABS: INR 1.19 (0.87-1.13)
[2021-02-03 06:39] LABS: Albumin 1.6 g/dL (3.9-5); BUN/Creatinine Ratio 43; Blood Urea Nitrogen 51 mg/dL (7-17); Calcium 7.6 mg/dL (8.4-10.2); Hemolysis Index 20
[2021-02-03] MEDS: DEXTROSE 5% IN WATER 1,000 ML IV SCH (06:43)
[2021-02-03 06:47] LABS: Hemoglobin 7.9 gm/dl (10.1-14.3)
[2021-02-03 06:49] LABS: Hematocrit 19.2 % (30.3-42.9); Mean Corpuscular HGB Conc 41 % (30-34); Red Cell Distribution Width 23.6 % (13.2-15.2)
[2021-02-03 06:52] LABS: Alanine Aminotransferase 5 units/L (7-56)
--- NOTE | 2021-02-03 09:54 | Event Note ---
Date: 02/03/21 Electrolytes and renal function has improved. Will sign off. Please call with questions.
[2021-02-03] MEDS: PHYTONADIONE 5 MG/0.5 ML *ORAL LIQUID PO SCH (10:32)
[2021-02-03] MEDS: CHOLECALCIFEROL (VIT D3) 1000 UNIT (25 mcg) TAB PO SCH (10:32)
[2021-02-03] MEDS ORDERED: LIPASE 10,500/PROTEASE 25,000/AMYLASE 43,750 (UNITS) DR CAP FEEDTUBE PRN (10:42)
[2021-02-03] MEDS ORDERED: SIMPLE SYRUP 15 ML FEEDTUBE PRN ×2 (10:42)
[2021-02-03] MEDS ORDERED: SODIUM BICARBONATE 325 MG TAB FEEDTUBE PRN (10:42)
--- NOTE | 2021-02-03 12:03 | Progress Note ---
Assessment and Plan Cultures: 01/26/2021 blood culture: No growth 01/31/2021 right foot culture: No growth Assessment: 85-year-old female with history of dementia, cementation, sacral decubitus ulcer, admitted on 01/26/2021 secondary to a week history of decreased responsiveness and generalized weakness associated with shortness of breath: #Sepsis: persistent leukocytosis; likely due to bilateral pneumonia. #Bilateral pneumonia: SARS-CoV-2 PCR negative. Aspiration?. #SUDHIR: Renally adjust antibiotics. Not better #Extensive bony sclerotic lesions: ?MM /metastatic disease #AMS: not better. #Anemia/thrombocytopenia: worsening #Right hip trochanter and right medial foot pressure ulcers: s/p Excisional debridement by general surgery. No osteomyelitis noted on CT. #Malnutrition Recommendations: -Continue zosyn, D5 of 7 -Wound care consult -Offloading, nutritional optimization as possible -Work-up for extensive bony sclerotic lesions and suspected metastatic disease per primary -Patient is DNR, family does not want comfort measure or hospice. Pressure ulcers unlikely to heal. Extremely poor prognosis ID will sign off. Please reconsult as needed. Gonzalez Schulte MD, FACP [facility] O: [phone] F: [phone] Subjective Date of service: 02/03/21 Principal diagnosis: Neurogenic Dysphagia Interval history: Afebrile, hypothermic at times. Nonverbal. Objective - Exam Narrative Exam: Physical Exam: Constitutional: Drowsy, cachexia with temporal wasting Head, Ears, Nose: Normocephalic, atraumatic. External ears, nose normal Eyes: Conjunctivae/corneas clear. No icterus. No ptosis. Neck: Supple, no meningeal signs Cardiovascular: S1, S2 + Respiratory: Good air entry, clear to auscultation bilaterally GI: Soft, non-tender; bowel sounds normal. No peritoneal signs Musculoskeletal: No pedal edema, no cyanosis. Cachexia with wasting of all extremities Skin: Decubiti with dressings Hem/Lymphatic: No palpable cervical or supraclavicular nodes. No lymphangitis Psych: No agitation Neurological: Drowsy, nonverbal - Constitutional Vitals: Vital Signs Temp Pulse Resp BP Pulse Ox 94.5 F L 85 20 124/72 98 02/02/21 23:49 02/03/21 06:43 02/03/21 06:43 02/03/21 06:43 02/03/21 06:43 Temperature -Last 24 Hours Temperature 94.5 F - Labs CBC & Chem 7: 02/03/21 05:49 02/03/21 05:49 Labs: Abnormal lab results 02/02/21 02/02/21 02/02/21 Range/Units 13:29 14:40 18:54 WBC (4.5-11.0) K/mm3 RBC (3.65-5.03) M/mm3 Hgb (10.1-14.3) gm/dl Hct (30.3-42.9) % MCH (28-32) pg MCHC (30-34) % RDW (13.2-15.2) % PT (12.2-14.9) Sec. INR (0.87-1.13) Potassium 3.5 L D (3.6-5.0) mmol/L Carbon Dioxide 20 L (22-30) mmol/L BUN 55 H (7-17) mg/dL Creatinine 1.3 H (0.6-1.2) mg/dL Glucose 113 H (65-100) mg/dL POC Glucose 52 L 69 L (70-105) mg/dL Calcium 7.2 L (8.4-10.2) mg/dL AST (5-40) units/L ALT (7-56) units/L Alkaline Phosphatase (35-129) units/L Total Protein (6.3-8.2) g/dL Albumin (3.9-5) g/dL 02/03/21 02/03/21 02/03/21 Range/Units 05:49 05:49 05:49 WBC 15.4 H (4.5-11.0) K/mm3 RBC 2.05 L (3.65-5.03) M/mm3 Hgb 7.9 L (10.1-14.3) gm/dl Hct 19.2 L* (30.3-42.9) % MCH 38 H (28-32) pg MCHC 41 H* (30-34) % RDW 23.6 H (13.2-15.2) % PT 15.7 H (12.2-14.9) Sec. INR 1.19 H (0.87-1.13) Potassium (3.6-5.0) mmol/L Carbon Dioxide (22-30) mmol/L BUN 51 H (7-17) mg/dL Creatinine (0.6-1.2) mg/dL Glucose 139 H (65-100) mg/dL POC Glucose (70-105) mg/dL Calcium 7.6 L (8.4-10.2) mg/dL AST < 5 L (5-40) units/L ALT 5 L (7-56) units/L Alkaline Phosphatase 815 H (35-129) units/L Total Protein 4.2 L (6.3-8.2) g/dL Albumin 1.6 L (3.9-5) g/dL
--- NOTE | 2021-02-03 13:14 | Progress Note ---
Assessment and Plan Assessment and plan: 85 YO Female [facility] Facility Resident at [facility] with Vascular Dementia, Cerebral Atherosclerosis, Debility, Severe Malnutrition, Sacral Decubitus Ulcer present on admission presents to ED for evaluation. Patient has diminished cognition at the time my evaluation and is unable to provide history. Patient history provided by EMS staff, ED staff, retirement facility staff, as well as patient daughter who was made available by telephone for interview. As per daughter she was notified by retirement facility staff today and informed that the patient "was getting sick". The patient has experienced decreased responsiveness as well as increased weakness over the past 1 week with acute worsening of symptoms over the past 1 day. EMS was notified and upon arrival the patient was found to be in distress and was subsequently transported to [facility] for further care and evaluation of the aforementioned symptoms. The patient was seen and evaluated in the emergency department. All lab and imaging studies reviewed. Patient was found to have a pulse oximetry of 85% on room air which is consistent with acute hypoxemic respiratory failure. A chest x-ray revealed bilateral pneumonia. The patient was also found to have sepsis, acute kidney injury, as well as severe hypernatremia. The patient was admitted to medical floor and initiated on sepsis protocol, pneumonia protocol, as well as coronavirus protocol. No further history is obtainable. The patient has diminished cognition but has a positive gag reflex and is able to protect her airway without difficulty the time my evaluation. Advanced care planning conducted in ED. Hospital course to date 01/27: Patient seen and examined, very lethargic, and appears deconditioned and dry. - ID and Nephrology consult - Gentle hydration while awaiting COVID testing. - Monitor Platelet level - Follow cultures. - Q2H turns 01/28: Patient seen and examined unable to get Dobbhoff yesterday the nurse yesterday said that he was able to tolerate pured diet as recommended by speech therapist. Although today's nurse reports that the patient is not tolerating so we will try the Dobbhoff again. We will continue to reevaluate and on my examination he actually opens her mouth and responds to some questions recommended we try assistance with feeding again today. Renal function showing some improvement ID input appreciated continue antibiotics at this time. Leukocytosis still worse we will recheck. Assessment: 85-year-old female with history of dementia, cementation, sacral decubitus ulcer, admitted on 01/26/2021 secondary to a week history of decreased responsiveness and generalized weakness associated with shortness of breath 01/29/21 Patient is seen and examined. Patient is awake alert but demented. Patient pulled out the Dobbhoff tube. Will reinsert the Dobbhoff tube today and if possible start feeding. If needed will put the patient on restraint. Continue current management. Nutritional evaluation. Recheck CBC CMP in the morning. Nephrology follow-up. Assessment: 85-year-old female with history of dementia, cementation, sacral decubitus ulcer, admitted on 01/26/2021 secondary to a week history of decreased responsiveness and generalized weakness associated with shortness of breath: 01/30: Patient seen and examined, she is staill very leathrgic, tube feed is ongoing, unfortunately worsening metabolic acidosis. I spoke to the patients daughter and discussed overall medical condition, while they maintained DNR, they do not want comfort measure or hospice. I also advised that patient is having liver failure. Will further evaluate the liver Nephrology input appreciated. Will await Wound care evaluation and may need a surgical eval of the multiple wounds for possible debridement. Aspiration precautions Poor prognosis 01/31: Continues to be lethargic . Very frail . Surgery consulted for wound care evaluation. Prognosis remains poor. Bedside excision completed by surgery. ID consultation obtained. 02/01/2021: Patient continues to be lethargic. Blood sugar is noted to be low with reading of 20. Ordered glucagon 1 mg IV x1. Patient had not been receiv ing tube feeds due to her pulling Dobbhoff. Speech therapy recommends PEG tube placement. GI consulted for elevated transaminases and PEG tube placement. Will follow recs. 02/02/2021: ID and GI recs noted. GI will plan for PEG tube tomorrow. Continuing zosyn. Poor prognosis. 02/03/2021: Awaiting PEG tube placement. Plan for d/c back to [facility] afterwards. COVID test is ordered. Prognosis remains very poor. (1) Sepsis Current Visit: Yes Status: Acute Plan to address problem: Sepsis protocol: IV antibiotic therapy, IV fluid resuscitation therapy, serial lactic acid level, monitor urine output every shift, monitor fluid balance, maintain mean arterial pressure greater than equal 65, blood culture. Pressure ulcers unlikely per surgery ?Osteomyelitis- CTAP ordered Continue Zosyn IV. (2) Suspected 2019 novel coronavirus infection Current Visit: Yes Status: Acute Plan to address problem: Coronavirus protocol: IV steroid therapy, IV antibiotic therapy, supplemental oxygen, pulse oximetry, contact precautions, isolation precautions, nebulizer therapy, vitamin C therapy, vitamin D therapy, zinc therapy, (3) Severe malnutrition Current Visit: Yes Status: Acute Plan to address problem: Dietary supplementation, supportive care. (4) Hypernatremia Current Visit: Yes Status: Acute Plan to address problem: IV fluid resuscitation therapy, BMP, repeat BMP in a.m. (5) Acute kidney injury (SUDHIR) with acute tubular necrosis (ATN) Current Visit: Yes Status: Acute Plan to address problem: BMP, IV fluid resuscitation therapy, repeat BMP in a.m. to monitor serum creatinine as well as GFR (6) Multiple myeloma Current Visit: Yes Status: Acute Qualifiers: Multiple myeloma remission status: unspecified Qualified Code(s): C90.00 - Multiple myeloma not having achieved remission Plan to address problem: Supportive care, lytic bone lesions on x-ray. Patient family informed. No intervention desired. ID recommends CTAP. Will order (7) Bilateral pneumonia Current Visit: Yes Status: Acute Plan to address problem: Pneumonia protocol: Chest x-ray, CBC, CMP, supplemental oxygen, pulse oximetry, nebulizer therapy, blood culture. IV antibiotic therapy. (8) Multiple Pressure ulcer, Sacral Decubitus Ulcer - s/p bedside debridement by surgery. - low suspicion for source of sepsis, leukocytosis. (9) Anemia (10)Lactic Acidosis 11) Transaminits AST: 1184, ALT: 397. Was normal on admission Follow hepatitis serology D/c all hepatotoxic agents. GI consulted to evaluate (12) Advance care planning Current Visit: Yes Status: Acute Plan to address problem: Disease education conducted, care plan discussed, diagnosis discussed, poor prognosis discussed. Patient daughter Emy Chambers informed of patient prognosis. Patient is DNR. Patient daughter elects to have medical therapy at this time. Patient daughter made aware that patient may not tolerate therapy and current therapy may hasten patient demise. Patient daughter acknowledges understanding instructions patient daughter acknowledges understanding and agreement with current care plan. +30 minutes. (13)DVT prophylaxis Current Visit: Yes Status: Acute Plan to address problem: SCD to bilateral lower extremities while in bed History Interval history: No overnight events or changes in clinical picture. Hospitalist Physical - Physical exam Narrative exam: Narrative exam: General appearance: Present: mild distress, contracted - EENT ENT: hearing decreased, other, dry mucus membrane - Neck Neck: Present: supple, normal ROM - Respiratory Respiratory effort: labored Respiratory: bilateral: diminished, rhonchi - Cardiovascular Rhythm: regular Heart Sounds: Present: S1 & S2 - Extremities Extremities: pulses symmetrical, No edema Extremity abnormal: ulceration Peripheral Pulses: abnormal (Capillary refill greater than 3.5 seconds) - Abdominal General gastrointestinal: Present: soft, non-tender, non-distended, normal bowel sounds Female genitourinary: Present: normal - Integumentary Integumentary: Present: multiple ecchymotic injury, clear, dry, clammy, decreased turgor - Musculoskeletal Musculoskeletal: generalized weakness - Psychiatric Psychiatric: no appropriate mood/affect, no intact judgment & insight, no memory intact - Neurologic Neurologic: AOx 0. not following commands. - Constitutional Vitals: Temp Pulse Resp BP Pulse Ox 97.5 F L 51 L 18 127/69 77 L 02/03/21 10:58 02/03/21 10:58 02/03/21 10:58 02/03/21 10:58 02/03/21 10:58 General appearance: Present: mild distress Results - Labs CBC & Chem 7: 02/03/21 05:49 02/03/21 05:49 Labs: Laboratory Last Values WBC 15.4 K/mm3 (4.5-11.0) H 02/03/21 05:49 RBC 2.05 M/mm3 (3.65-5.03) L 02/03/21 05:49 Hgb 7.9 gm/dl (10.1-14.3) L 02/03/21 05:49 Hct 19.2 % (30.3-42.9) L* 02/03/21 05:49 MCV 94 fl (79-97) 02/03/21 05:49 MCH 38 pg (28-32) H 02/03/21 05:49 MCHC 41 % (30-34) H* 02/03/21 05:49 RDW 23.6 % (13.2-15.2) H 02/03/21 05:49 Plt Count 106 K/mm3 (140-440) L 01/31/21 09:03 Lymph % (Auto) Manager Stars 01/30/21 08:09 [place] % (Auto) Manager Stars 01/30/21 08:09 Eos % (Auto) Manager Stars 01/30/21 08:09 Baso % (Auto) Manager Stars 01/30/21 08:09 Lymph # (Auto) Manager Stars 01/30/21 08:09 [place] # (Auto) Manager Stars 01/30/21 08:09 Eos # (Auto) Manager Stars 01/30/21 08:09 Baso # (Auto) Manager Stars 01/30/21 08:09 Add Manual Diff Complete 01/30/21 08:09 Total Counted 100 01/30/21 08:09 Seg Neutrophils % Manager Stars 01/30/21 08:09 Seg Neuts % (Manual) 71.0 % (40.0-70.0) H 01/30/21 08:09 Band Neutrophils % 10.0 % 01/30/21 08:09 Lymphocytes % (Manual) 9.0 % (13.4-35.0) L 01/30/21 08:09 Reactive Lymphs % (Man) 1.0 % 01/30/21 08:09 Monocytes % (Manual) 4.0 % (0.0-7.3) 01/27/21 18:10 Eosinophils % (Manual) 1.0 % (0.0-4.3) 01/30/21 08:09 Basophils % (Manual) 0.5 % (0.0-1.8) 01/27/21 18:10 Metamyelocytes % 7.0 % 01/30/21 08:09 Myelocytes % 1.0 % 01/30/21 08:09 Nucleated RBC % 1.0 % (0.0-0.9) H 01/30/21 08:09 Seg Neutrophils # Manager Stars 01/30/21 08:09 Seg Neutrophils # Man 15.1 K/mm3 (1.8-7.7) H 01/30/21 08:09 Band Neutrophils # 2.1 K/mm3 01/30/21 08:09 Lymphocytes # (Manual) 1.9 K/mm3 (1.2-5.4) 01/30/21 08:09 Abs React Lymphs (Man) 0.2 K/mm3 01/30/21 08:09 Monocytes # (Manual) 0.0 K/mm3 (0.0-0.8) 01/30/21 08:09 Eosinophils # (Manual) 0.2 K/mm3 (0.0-0.4) 01/30/21 08:09 Basophils # (Manual) 0.0 K/mm3 (0.0-0.1) 01/30/21 08:09 Metamyelocytes # 1.5 K/mm3 01/30/21 08:09 Myelocytes # 0.2 K/mm3 01/30/21 08:09 Promyelocytes # 0.0 K/mm3 01/30/21 08:09 Blast Cells # 0.0 K/mm3 01/30/21 08:09 WBC Morphology Not Reportable 01/30/21 08:09 Hypersegmented Neuts Not Reportable 01/30/21 08:09 Hyposegmented Neuts Not Reportable 01/30/21 08:09 Hypogranular Neuts Not Reportable 01/30/21 08:09 Smudge Cells Not Reportable 01/30/21 08:09 Toxic Granulation Not Reportable 01/30/21 08:09 Toxic Vacuolation Not Reportable 01/30/21 08:09 Dohle Bodies Not Reportable 01/30/21 08:09 Pelger-Huet Anomaly Not Reportable 01/30/21 08:09 [place] J Rods Not Reportable 01/30/21 08:09 Platelet Estimate Consistent w auto 01/30/21 08:09 Clumped Platelets Not Reportable 01/30/21 08:09 Plt Clumps, EDTA Not Reportable 01/30/21 08:09 Large Platelets Not Reportable 01/30/21 08:09 Giant Platelets Not Reportable 01/30/21 08:09 Platelet Satelliting Not Reportable 01/30/21 08:09 Plt Morphology Comment Not Reportable 01/30/21 08:09 RBC Morphology Not Reportable 01/30/21 08:09 Dimorphic RBCs Not Reportable 01/30/21 08:09 Polychromasia Not Reportable 01/30/21 08:09 Hypochromasia Not Reportable 01/30/21 08:09 Poikilocytosis Not Reportable 01/30/21 08:09 Anisocytosis 2+ 01/30/21 08:09 Microcytosis Not Reportable 01/30/21 08:09 Macrocytosis 1+ 01/30/21 08:09 Spherocytes Not Reportable 01/30/21 08:09 Pappenheimer Bodies Not Reportable 01/30/21 08:09 Sickle Cells Not Reportable 01/30/21 08:09 Target Cells Not Reportable 01/30/21 08:09 Tear Drop Cells Not Reportable 01/30/21 08:09 Ovalocytes Not Reportable 01/30/21 08:09 Helmet Cells Not Reportable 01/30/21 08:09 [place] Bodies Not Reportable 01/30/21 08:09 [place] Rings Not Reportable 01/30/21 08:09 [place] Cells 1+ 01/30/21 08:09 Bite Cells Not Reportable 01/30/21 08:09 Crenated Cell Not Reportable 01/30/21 08:09 Elliptocytes Not Reportable 01/30/21 08:09 Acanthocytes (Spur) Not Reportable 01/30/21 08:09 Rouleaux Not Reportable 01/30/21 08:09 Hemoglobin C Crystals Not Reportable 01/30/21 08:09 Schistocytes Not Reportable 01/30/21 08:09 Malaria parasites Not Reportable 01/30/21 08:09 Garry Bodies Not Reportable 01/30/21 08:09 Hem Pathologist Commnt No 01/30/21 08:09 PT 15.7 Sec. (12.2-14.9) H 02/03/21 05:49 INR 1.19 (0.87-1.13) H 02/03/21 05:49 ABG pH 7.409 pH Units (7.350-7.450) 01/30/21 18:04 ABG pCO2 32.7 mm Hg 01/30/21 18:04 ABG pO2 119.3 mm Hg (80.0-90.0) H 01/30/21 18:04 ABG HCO3 20.2 mmol/L (20.0-26.0) 01/30/21 18:04 ABG O2 Saturation 98.3 % (95.0-99.0) 01/30/21 18:04 ABG O2 Content 8.3 (0.0-44) 01/30/21 18:04 ABG Base Excess -4.1 mmol/L (-2.0-3.0) L 01/30/21 18:04 ABG Hemoglobin 5.9 gm/dl (12.0-16.0) L 01/30/21 18:04 ABG Carboxyhemoglobin 1.3 % (0.0-5.0) 01/30/21 18:04 ABG Methemoglobin 0.1 % (0.0-1.5) 01/30/21 18:04 Oxyhemoglobin 96.9 % (95.0-99.0) 01/30/21 18:04 FiO2 36 % 01/30/21 18:04 Sodium 140 mmol/L (137-145) 02/03/21 05:49 Potassium 4.0 mmol/L (3.6-5.0) 02/03/21 05:49 Chloride 104.5 mmol/L (98-107) 02/03/21 05:49 Carbon Dioxide 25 mmol/L (22-30) 02/03/21 05:49 Anion Gap 15 mmol/L 02/03/21 05:49 BUN 51 mg/dL (7-17) H 02/03/21 05:49 Creatinine 1.2 mg/dL (0.6-1.2) 02/03/21 05:49 Estimated GFR 43 ml/min 02/03/21 05:49 BUN/Creatinine Ratio 43 % 02/03/21 05:49 Glucose 139 mg/dL (65-100) H 02/03/21 05:49 POC Glucose 75 mg/dL (70-105) 02/03/21 00:41 Lactic Acid 1.30 mmol/L (0.7-2.0) 01/27/21 18:10 Calcium 7.6 mg/dL (8.4-10.2) L 02/03/21 05:49 Total Bilirubin 0.20 mg/dL (0.1-1.2) 02/03/21 05:49 Direct Bilirubin < 0.2 mg/dL (0-0.2) 02/02/21 07:38 Indirect Bilirubin 0.0 mg/dL 02/02/21 07:38 AST < 5 units/L (5-40) L 02/03/21 05:49 ALT 5 units/L (7-56) L 02/03/21 05:49 Alkaline Phosphatase 815 units/L (35-129) H 02/03/21 05:49 Total Protein 4.2 g/dL (6.3-8.2) L 02/03/21 05:49 Albumin 1.6 g/dL (3.9-5) L 02/03/21 05:49 Albumin/Globulin Ratio 0.6 % 02/03/21 05:49 Coronavirus (PCR) Negative (Negative) 01/27/21 08:30 Hepatitis A IgM Ab Non-reactive (NonReactive) 02/02/21 07:38 Hep Bs Antigen Nonreactive (Negative) 02/02/21 07:38 Hep B Core IgM Ab Non-reactive (NonReactive) 02/02/21 07:38 Hepatitis C Antibody Non-reactive (NonReactive) 02/02/21 07:38 Blood Type O POSITIVE 01/26/21 19:56 Antibody Screen Negative 01/26/21 19:56 Sorto/IV: Voiding Method Incontinent Active Medications - Current Medications Current Medications: Generic Name Dose Route Start Last Admin Trade Name Freq PRN Reason Stop Dose Admin Albuterol 2.5 mg 01/26/21 18:10 Albuterol 2.5 Mg/3 Ml Nebu IH Q4HRT PRN Shortness Of Breath Lipase/Protease/Amylase 1 each 01/27/21 11:00 Lipase 10,500/Protease 25,000/Amylase 43,750 (Units) Dr Joseph FEEDTUBE PRN PRN For Clogged Feeding Tube Ascorbic Acid 500 mg 01/26/21 22:00 02/03/21 10:32 Ascorbic Acid 500 Mg Tab PO Not Given BID VINOD Cholecalciferol 1,000 unit 01/27/21 10:00 02/03/21 10:32 Cholecalciferol (Vit D3) 1000 Unit (25 Mcg) Tab PO Not Given QDAY VINOD Dextrose 50 ml 02/01/21 18:00 02/01/21 20:27 Dextrose 50% In Water (25gm) 50 Ml Syringe IV 02/03/21 18:01 50 ml Q30MIN VINOD Administration Protocol Hydromorphone HCl 0.25 mg 01/26/21 18:10 Hydromorphone 1 Mg/1 Ml Inj IV Q4H PRN Pain, Moderate (4-6) Hydromorphone HCl 0.5 mg 01/26/21 18:10 Hydromorphone 1 Mg/1 Ml Inj IV Q24H PRN Pain , Severe (7-10) Dextrose 1,000 mls @ 75 mls/hr 01/28/21 13:00 02/03/21 06:43 D5w IV 75 mls/hr DIRECT VINOD Administration Piperacillin Sod/Tazobactam Sod 2.25 gm in 50 mls @ 100 mls/hr 02/02/21 18:00 02/03/21 06:39 Zosyn/Ns 2.25 Gm/50ml IV 02/05/21 18:29 100 mls/hr Q6HR VINOD Administration Ondansetron HCl 4 mg 01/26/21 18:10 Ondansetron 4 Mg/2 Ml Inj IV Q8H PRN Nausea And Vomiting Phytonadione 5 mg 02/02/21 11:00 02/03/21 10:32 Phytonadione 5 Mg/0.5 Ml *Oral Liquid* PO 02/04/21 10:01 Not Given DAILY VINOD Simple Syrup 15 ml 01/27/21 11:00 Simple Syrup 15 Ml FEEDTUBE PRN PRN Hypoglycemia Simple Syrup 30 ml 01/27/21 11:00 02/02/21 14:01 Simple Syrup 15 Ml FEEDTUBE 30 ml PRN PRN Administration Hypoglycemia Sodium Bicarbonate 325 mg 01/27/21 11:00 Sodium Bicarbonate 325 Mg Tab FEEDTUBE PRN PRN For Clogged Feeding Tube Sodium Chloride 10 ml 01/26/21 22:00 02/03/21 10:32 Sodium Chloride 0.9% 10 Ml Flush Syringe IV 10 ml BID VINOD Administration Sodium Chloride 10 ml 01/26/21 18:10 Sodium Chloride 0.9% 10 Ml Flush Syringe IV PRN PRN LINE FLUSH Sodium Hypochlorite 1 applic 02/01/21 10:00 02/03/21 10:31 Sodium Hypochlorite, Dakin's 1/2 Strength (0.25%) 473 Ml Topical Soln TP 0.25 applicatio BID VINOD Administration Nutrition/Malnutrition Assess - Dietary Evaluation Nutrition/Malnutrition Findings: Nutrition Notes Start: 01/27/21 10:34 Freq: Status: Active Protocol: Document 02/03/21 10:27 GB (Rec: 02/03/21 10:41 GB [id number]) Nutrition Notes Need for Assessment generated from: MD Order Initial or Follow up Reassessment Current Diagnosis Acute Kidney Injury,Sepsis, Malnutrition Other Pertinent Diagnosis PEG placement 02/03, FTT, multiple myeloma Current Diet NPO Labs/Tests 02/03: BUN 51, glucose 139, Ca 7.6, AST <5, ALT 5, AlkP 815 Pertinent Medications Vit C, Vit D3, Vit K, D5 1000ml (170kcal) Height 5 ft 3 in Weight 40 kg [place] Body Weight (kg) 52.27 BMI 15.6 Weight change and time frame 01/26: 45.359kg 02/02: 40kg change: -5.359kg for -11.8% significance Weight Status Underweight Subjective/Other Information Dementia disease progression, NH resident, PEG placement for nutrition. Percent of energy/protein needs met: TF orders to meet 100% minimal estimated energy needs 30kcal /kg. Burn Absent Trauma Absent GI Symptoms None Food Allergy No Skin Integrity/Comment stage II pressure injuries x3 Minimum of two criteria Yes Interpretation of Weight Loss (severe) >2% in 1 week Body Fat Depletion Mild depletion (non-severe) Muscle Mass Mild Depletion (non-severe) #2 Nutrition Diagnosis Increased nutrient needs ( specify in comment below) Comments: protein Etiology wound healing As Evidenced by Signs and Symptoms stage II pressure injuries x3: sacral, rt and lt hips Diagnosis Progress(for reassessment Continues documentation) #1 Nutrition Diagnosis Malnutrition Comments: weight loss of -11.8% in hospital Etiology advanced age, chronic disease As Evidenced by Signs and Symptoms muscle and fat wasting Diagnosis Progress(for reassessment Continues documentation) Is patient on ventilator? No Is Patient Ambulatory and/or Out of Bed No REE-([facility]-confined to bed) 984.636 Kcal/Kg value to use for calculation 30 Approximate Energy Requirements Using 1200 kcal/Kg Calculation Used for Recommendations Kcal/kg Additional Notes Protein: 1-1.5g/kg @ 40k- 60g Fluids: 1 ml/kcal or per MD Nutrition Intervention Change Diet Order: continue as tolerated for pleasure Nutrition Support: Glucerna 1.2 at goal rate of 45ml/hr Flush 100 ml q4h or per MD Kcal 1,296 Protein (gm) 65 Fluid (mL) 864 Add Supplement/Snack (indicate name/kcal Michael BID /protein ) Provides kCal: 190 Provides Protein (gm) 5 Goal #1 TF formula tolerated at goal rate of 45ml/hr Goal #2 weight to maintain or gain +3% current weight during LOS Goal #3 tolerate nutritional supplement MICHAEL via PEG BID for LOS Follow-Up By: 02/06/21 Additional Comments New PEG, TF order placed to start 02/04, tolerating TF
[2021-02-03] MEDS ORDERED: SODIUM CHLORIDE 0.9% 1000 ML 1,000 ML ONE ×2 (14:04→15:40)
[2021-02-03] MEDS ORDERED: ceFAZolin/Water 2 GM/20 ML 2 GM/20 ML SYRINGE IV ONE (14:06)
[2021-02-03] MEDS ORDERED: MIDAZOLAM 2 MG/2 ML INJ ONE (14:06)
[2021-02-03] MEDS ORDERED: propofoL 200 MG/20 ML VIAL IV ONE (14:10)
[2021-02-03] MEDS ORDERED: KETAMINE/STERILE WATER 50 MG/ML SYRINGE ONE (14:11)
[2021-02-03] MEDS ORDERED: ceFAZolin/STERILE WATER 2 GM/20 ML SYRINGE IV ONE (14:15)
--- NOTE | 2021-02-03 14:28 | Post Operative Note ---
Pre-op diagnosis: Neurogenic Dysphagia Post-op diagnosis: same Findings: 1. Normal UGI tract - Successful 20Fr Pull-type PEG 3cm below LMCL line - Bumper at 3.5cm Procedure: EGD with PEG placement Anesthesia: MAC Surgeon: DANNY GUY Estimated blood loss: minimal Pathology: none Specimen disposition: other (N/A) Condition: stable Disposition: floor (Recs: 1. May use PEG in 4 hours for feeds/flush/meds. 2. Will see tomorrow to loosen bumper. 3. Protonix daily therapy. 4. OK to resume anticoagulation/DAPT (if patient on).)
--- NOTE | 2021-02-03 14:45 | Operative Report ---
DATE OF SURGERY: 02/03/2021 PROCEDURE PERFORMED: Esophagogastroduodenoscopy with percutaneous gastrostomy tube placement. PREOPERATIVE DIAGNOSIS: Neurogenic dysphagia. POSTOPERATIVE DIAGNOSIS: Neurogenic dysphagia. ENDOSCOPIST: Bakari Carson MD INSTRUMENT: The Olympus video endoscope. MEDICATIONS: MAC anesthesia by [facility]esthesia [facility]. COMPLICATIONS: No apparent complications. ESTIMATED BLOOD LOSS: Minimal. SPECIMENS: None. IMPLANTS: A 20-Latvian pull-type gastrostomy tube placed in the body of the stomach during this procedure. ASSISTANTS: None. CONDITION AT COMPLETION: Stable. TECHNIQUE: The patient was unable to provide informed consent due to mental status. Her daughter was informed of the risks and benefits of the procedure and she gave verbal consent to proceed. The patient was placed in the supine position. The above sedative medications were given. Her vital signs remained stable throughout the procedure. The instrument was advanced from the mouth to the second portion of the duodenum under direct visualization. At that point, the bowel was insufflated and the endoscope was slowly withdrawn into the stomach. There was a good red light reflex and indentation in an area 3 cm below the left midclavicular line. This area was sterilely draped and prepped and then anesthetized with dilute lidocaine. Upon injection of the lidocaine, there was no air in the hub of the syringe until the needle passed into the lumen of the stomach. At that point, a 20-Latvian pull-type gastrostomy tube was placed over a guidewire in the usual fashion and the procedure was terminated. FINDINGS: 1. Normal upper GI tract. A. Successful 20-Latvian pull-type gastrostomy tube placed 3 cm below the left midclavicular line. B. The external bumper was fixed at 3.5 cm. RECOMMENDATIONS: 1. May use the gastrostomy tube in 4 hours for feeds, flushes and medications. 2. We will see the patient tomorrow to loosen the bumper. 3. Protonix daily therapy. 4. Okay to resume anticoagulation or dual antiplatelet therapy, if the patient is on it, tomorrow. TID: [id number] RECEIPT: [id number] ADITYA/HOMER
[2021-02-03] MEDS ORDERED: PHENYLEPHRINE/NS 1,000 MCG/10 ML SYRINGE (OR USE) IV ONE ×2 (15:20→17:00)
[2021-02-03] MEDS: PHENYLEPHRINE/NS 1,000 MCG/10 ML SYRINGE (OR USE) IV PRN ×2 (15:22→15:45)
[2021-02-03] MEDS: LANSOPRAZOLE 30 MG SOLUTAB FEEDTUBE SCH (15:23)
[2021-02-03] MEDS: DEXTROSE 50% IN WATER (25GM) 50 ML SYRINGE IV SCH (15:48)
--- NOTE | 2021-02-03 16:33 | Post Anesthesia Evaluation ---
- Post Anesthesia Evaluation Patient Participated: No Airway Patent: Yes Stable Respiratory Function: Yes Nausea/Vomiting: No Temp > 96.8F: Yes Pain Manageable: Yes Adequeate Hydration: Yes Anesthesia Complications: No Block Receding Appropriately: Not Applicable Patient on Ventilator: No
[2021-02-03 20:05] LABS: Myelocytes # (Manual) 7.4 K/mm3; Total Cells Counted 100
[2021-02-03 20:07] LABS: Platelet Estimate Consistent w Auto
[2021-02-03 20:18] LABS: Platelet Count 89 K/mm3 (140-440)
[2021-02-03] MEDS: SIMPLE SYRUP 15 ML FEEDTUBE PRN (21:19)
[2021-02-03] MEDS ORDERED: DEXTROSE 50% IN WATER (25GM) 50 ML SYRINGE IV ONE (22:07)
[2021-02-03] MEDS ORDERED: DEXTROSE 50% IN WATER (25GM) 50 ML SYRINGE IV PRN (22:16)
[2021-02-04] MEDS: SODIUM HYPOCHLORITE, DAKIN'S 1/2 STRENGTH (0.25%) 473 ML TOPICAL SOLN TP SCH ×3 (00:07→22:41)
[2021-02-04] MEDS: ASCORBIC ACID 500 MG TAB PO SCH ×3 (00:07→22:37)
[2021-02-04] MEDS: PIPERACIL-TAZO 2.25 GM/50 ML 2.25 GM/50 ML BAG IV SCH ×2 (00:08→06:36)
[2021-02-04] MEDS: DEXTROSE 5% IN WATER 1,000 ML IV SCH ×2 (06:40→22:45)
--- NOTE | 2021-02-04 08:34 | Discharge Summary ---
Providers - Providers Date of Admission: 01/26/21 18:10 Date of discharge: 02/04/21 Attending physician: BESSY HANSON MD 01/27/21 03:19 Consult to Wound/ET Nurse [CONS] Routine Reason For Exam: wound eval 01/27/21 09:16 Consult to Physician [CONS] Routine Comment: Consulting Provider: DAVE ELAINE Physician Instructions: Reason For Exam: sepsis 01/27/21 09:53 Speech Therapy Evaluation and Treat [CONS] Routine Reason For Exam: swallow eval 01/27/21 09:55 Consult to Dietitian/Nutrition [CONS] Routine Physician Instructions: Reason For Exam: Reason for Consult: Write/Manage Tube Feeding 01/31/21 07:20 Consult to Physician [CONS] Routine Comment: Consulting Provider: PRISCILLA PARIS Physician Instructions: Reason For Exam: wound eval for debridement 01/31/21 15:50 Consult to Physician [CONS] Routine Comment: Consulting Provider: MARY HANSON Physician Instructions: Reason For Exam: transaminitis > 1000, PEG tube placement Primary care physician: NAIDA MONTAÑO Hospitalization Reason for admission: Decreased responsiveness. 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 Patient has diminished cognition at the time my evaluation and is unable to provide history. Patient history provided by EMS staff, ED staff, longterm facility staff, as well as patient daughter who was made available by telephone for interview. As per daughter she was notified by longterm facility staff today and informed that the patient "was getting sick". The patient has experienced decreased responsiveness as well as increased weakness over the past 1 week with acute worsening of symptoms over the past 1 day. EMS was notified and upon arrival the patient was found to be in distress and was subsequently transported to [facility] for further care and evaluation of the aforementioned symptoms. The patient was seen and evaluated in the emergency department. All lab and imaging studies reviewed. Patient was found to have a pulse oximetry of 85% on room air which is consistent with a cute hypoxemic respiratory failure. A chest x-ray revealed bilateral pneumonia. The patient was also found to have sepsis, acute kidney injury, as well as severe hypernatremia. The patient was admitted to medical floor and initiated on sepsis protocol, pneumonia protocol, as well as coronavirus protocol. No further history is obtainable. The patient has diminished cognition but has a positive gag reflex and is able to protect her airway without difficulty the time my evaluation. Advanced care planning conducted in ED. Hospital course to date 01/27: Patient seen and examined, very lethargic, and appears deconditioned and dry. - ID and Nephrology consult - Gentle hydration while awaiting COVID testing. - Monitor Platelet level - Follow cultures. - Q2H turns 01/28: Patient seen and examined unable to get Dobbhoff yesterday the nurse yesterday said that he was able to tolerate pured diet as recommended by speech therapist. Although today's nurse reports that the patient is not tolerating so we will try the Dobbhoff again. We will continue to reevaluate and on my examination he actually opens her mouth and responds to some questions recommended we try assistance with feeding again today. Renal function showing some improvement ID input appreciated continue antibiotics at this time. Leukocytosis still worse we will recheck. Assessment: 85-year-old female with history of dementia, cementation, sacral decubitus ulcer, admitted on 01/26/2021 secondary to a week history of decreased responsiveness and generalized weakness associated with shortness of breath 01/29/21 Patient is seen and examined. Patient is awake alert but demented. Patient pulled out the Dobbhoff tube. Will reinsert the Dobbhoff tube today and if possible start feeding. If needed will put the patient on restraint. Continue current management. Nutritional evaluation. Recheck CBC CMP in the morning. Nephrology follow-up. Assessment: 85-year-old female with history of dementia, cementation, sacral decubitus ulcer, admitted on 01/26/2021 secondary to a week history of decreased responsiveness and generalized weakness associated with shortness of breath: 01/30: Patient seen and examined, she is staill very leathrgic, tube feed is ongoing, unfortunately worsening metabolic acidosis. I spoke to the patients daughter and discussed overall medical condition, while they maintained DNR, they do not want comfort measure or hospice. I also advised that patient is having liver failure. Will further evaluate the liver Nephrology input appreciated. Will await Wound care evaluation and may need a surgical eval of the multiple wounds for possible debridement. Aspiration precautions Poor prognosis 01/31: Continues to be lethargic . Very frail . Surgery consulted for wound care evaluation. Prognosis remains poor. Bedside excision completed by surgery. ID consultation obtained. 02/01/2021: Patient continues to be lethargic. Blood sugar is noted to be low with reading of 20. Ordered glucagon 1 mg IV x1. Patient had not been receiving tube feeds due to her pulling Dobbhoff. Speech therapy recommends PEG tube placement. GI consulted for elevated transaminases and PEG tube placement. Will follow recs. 02/02/2021: ID and GI recs noted. GI will plan for PEG tube tomorrow. Continuing zosyn. Poor prognosis. 02/03/2021: Awaiting PEG tube placement. Plan for d/c back to [facility] afterwards. COVID test is ordered. Prognosis remains very poor. 02/04/2021: S/p PEG. tolerating well. Awaiting covid test result. Patient was treated with prolongued course of antibiotics throughout her hospital stay and had bedside debrdiement for pressure ulcer wounds by general surgery. Liver evaluation was completed by GI/hepatology who stated etiology was likely due to sepsis/hypotension. Liver enzymes have since normalized. Prognosis is very poor given patient malnourished state, multiple comorbidities and high suspicion for malignancy given lytic lesions on bone. She is a DNR and a candidate for hospice however per the family request they would like her to return to [facility]. can be discharge back to [facility]. (1) Sepsis Current Visit: Yes Status: Acute Plan to address problem: Sepsis protocol: IV antibiotic therapy, IV fluid resuscitation therapy, serial lactic acid level, monitor urine output every shift, monitor fluid balance, maintain mean arterial pressure greater than equal 65, blood culture. Pressure ulcers unlikely per surgery CTAP: Lytic lesions noted on Continue Zosyn IV. (2) Suspected 2019 novel coronavirus infection Current Visit: Yes Status: Acute Plan to address problem: Coronavirus protocol: IV steroid therapy, IV antibiotic therapy, supplemental o xygen, pulse oximetry, contact precautions, isolation precautions, nebulizer therapy, vitamin C therapy, vitamin D therapy, zinc therapy, (3) Severe malnutrition Current Visit: Yes Status: Acute Plan to address problem: Dietary supplementation, supportive care. (4) Hypernatremia Current Visit: Yes Status: Acute Plan to address problem: IV fluid resuscitation therapy, BMP, repeat BMP in a.m. (5) Acute kidney injury (SUDHIR) with acute tubular necrosis (ATN) Current Visit: Yes Status: Acute Plan to address problem: BMP, IV fluid resuscitation therapy, repeat BMP in a.m. to monitor serum creatinine as well as GFR (6) Multiple myeloma Current Visit: Yes Status: Acute Qualifiers: Multiple myeloma remission status: unspecified Qualified Code(s): C90.00 - Multiple myeloma not having achieved remission Plan to address problem: Supportive care, lytic bone lesions on x-ray. Patient family informed. No intervention desired. ID recommends CTAP. Will order (7) Bilateral pneumonia Current Visit: Yes Status: Acute Plan to address problem: Pneumonia protocol: Chest x-ray, CBC, CMP, supplemental oxygen, pulse oximetry, nebulizer therapy, blood culture. IV antibiotic therapy. (8) Multiple Pressure ulcer, Sacral Decubitus Ulcer - s/p bedside debridement by surgery. - low suspicion for source of sepsis, leukocytosis. (9) Anemia (10)Lactic Acidosis 11) Transaminits AST: 1184, ALT: 397. Was normal on admission Follow hepatitis serology D/c all hepatotoxic agents. GI consulted to evaluate (12) Advance care planning Current Visit: Yes Status: Acute Plan to address problem: Disease education conducted, care plan discussed, diagnosis discussed, poor prognosis discussed. Patient daughter Emy Chambers informed of patient prognosis. Patient is DNR. Patient daughter elects to have medical therapy at this time. Patient daughter made aware that patient may not tolerate therapy a nd current therapy may hasten patient demise. Patient daughter acknowledges understanding instructions patient daughter acknowledges understanding and agreement with current care plan. +30 minutes. (13)DVT prophylaxis Current Visit: Yes Status: Acute Plan to address problem: SCD to bilateral lower extremities while in bed Disposition: [facility] Final Discharge Diagnosis (Prints w/discharge instructions): Sepsis Core Measure Documentation - Palliative Care Palliative Care/ Comfort Measures: Not Applicable - Core Measures Any of the following diagnoses?: none Exam - Physical Exam Narrative exam: Narrative exam: General appearance: Present: mild distress, contracted - EENT ENT: hearing decreased, other, dry mucus membrane - Neck Neck: Present: supple, normal ROM - Respiratory Respiratory effort: labored Respiratory: bilateral: diminished, rhonchi - Cardiovascular Rhythm: regular Heart Sounds: Present: S1 & S2 - Extremities Extremities: pulses symmetrical, No edema Extremity abnormal: ulceration Peripheral Pulses: abnormal (Capillary refill greater than 3.5 seconds) - Abdominal General gastrointestinal: Present: soft, non-tender, non-distended, normal bowel sounds. s/p peg. Female genitourinary: Present: normal - Integumentary Integumentary: Present: multiple ecchymotic injury, clear, dry, clammy, decreased turgor - Musculoskeletal Musculoskeletal: generalized weakness - Psychiatric Psychiatric: no appropriate mood/affect, no intact judgment & insight, no memory intact - Neurologic Neurologic: AOx 0. not following commands. - Constitutional Vitals: Temp Pulse Resp BP Pulse Ox 98.2 F 87 18 129/77 90 02/04/21 05:05 02/04/21 05:05 02/04/21 05:05 02/04/21 05:05 02/04/21 05:05 Plan Activity: fall precautions Weight Bearing Status: Non-Weight Bearing Diet: other (PEG) Wound: keep clean and dry Follow up with: NAIDA MONTAÑO MD [Primary Care Provider] - 7 Days
[2021-02-04 08:48] LABS: Calcium 8.1 mg/dL (8.4-10.2)
[2021-02-04] MEDS: CHOLECALCIFEROL (VIT D3) 1000 UNIT (25 mcg) TAB PO SCH (10:39)
[2021-02-04] MEDS: LANSOPRAZOLE 30 MG SOLUTAB FEEDTUBE SCH (10:39)
--- NOTE | 2021-02-04 15:18 | Gastroenterology Progress Note ---
Assessment and Plan oropharyngeal dysphagia - s/p peg tube placement 02/03, external bumper loosened at bedside. continue tube feeds as tolerated per nutrition recommendations and post peg care daily. will sign off, please call as needed Subjective Date of service: 02/04/21 Principal diagnosis: Neurogenic Dysphagia Interval history: s/p peg tube placement, tolerating tube feeds per nursing staff Objective - Exam Narrative Exam: nad, cachectic female, non verbal abd: soft, nt, peg tube site c/d/i, external bumper loosened at bedside - Constitutional Vitals: Temp Pulse Resp BP Pulse Ox 98.2 F 87 18 129/77 92 02/04/21 05:05 02/04/21 05:05 02/04/21 05:05 02/04/21 05:05 02/04/21 10:00 - Labs CBC & Chem 7: 02/03/21 05:49 02/04/21 06:41 Labs: Laboratory Results - last 24 hr 02/03/21 02/03/21 02/03/21 05:49 15:13 16:06 Plt Count 89 L Add Manual Diff Complete Total Counted 100 Seg Neuts % (Manual) 21.0 L Lymphocytes % (Manual) 23.0 Monocytes % (Manual) 8.0 H Myelocytes % 48.0 Nucleated RBC % Not Reportable Seg Neutrophils # Man 3.2 Band Neutrophils # 0.0 Lymphocytes # (Manual) 3.5 Abs React Lymphs (Man) 0.0 Monocytes # (Manual) 1.2 H Eosinophils # (Manual) 0.0 Basophils # (Manual) 0.0 Metamyelocytes # 0.0 Myelocytes # 7.4 Promyelocytes # 0.0 Blast Cells # 0.0 WBC Morphology Not Reportable Hypersegmented Neuts Not Reportable Hyposegmented Neuts Not Reportable Hypogranular Neuts Not Reportable Smudge Cells Not Reportable Toxic Granulation Not Reportable Toxic Vacuolation Not Reportable Dohle Bodies Not Reportable Pelger-Huet Anomaly Not Reportable Francisco J Rods Not Reportable Platelet Estimate Consistent w auto Clumped Platelets Not Reportable Plt Clumps, EDTA Not Reportable Large Platelets Not Reportable Giant Platelets Not Reportable Platelet Satelliting Not Reportable Plt Morphology Comment Not Reportable RBC Morphology Not Reportable Dimorphic RBCs Not Reportable Polychromasia Not Reportable Hypochromasia Not Reportable Poikilocytosis Not Reportable Anisocytosis Not Reportable Microcytosis Not Reportable Macrocytosis Not Reportable Spherocytes Not Reportable Pappenheimer Bodies Not Reportable Sickle Cells Not Reportable Target Cells Not Reportable Tear Drop Cells Not Reportable Ovalocytes Not Reportable Helmet Cells Not Reportable [place] Bodies Not Reportable Mcintosh Rings Not Reportable Guillermina Cells Not Reportable Bite Cells Not Reportable Crenated Cell Not Reportable Elliptocytes Not Reportable Acanthocytes (Spur) Not Reportable Rouleaux Not Reportable Hemoglobin C Crystals Not Reportable Schistocytes Not Reportable Malaria parasites Not Reportable Garry Bodies Not Reportable Hem Pathologist Commnt No Sodium Potassium Chloride Carbon Dioxide Anion Gap BUN Creatinine Estimated GFR BUN/Creatinine Ratio Glucose POC Glucose 71 116 H Calcium Coronavirus (PCR) 02/03/21 02/03/21 02/03/21 21:10 21:45 22:51 Plt Count Add Manual Diff Total Counted Seg Neuts % (Manual) Lymphocytes % (Manual) Monocytes % (Manual) Myelocytes % Nucleated RBC % Seg Neutrophils # Man Band Neutrophils # Lymphocytes # (Manual) Abs React Lymphs (Man) Monocytes # (Manual) Eosinophils # (Manual) Basophils # (Manual) Metamyelocytes # Myelocytes # Promyelocytes # Blast Cells # WBC Morphology Hypersegmented Neuts Hyposegmented Neuts Hypogranular Neuts Smudge Cells Toxic Granulation Toxic Vacuolation Dohle Bodies Pelger-Huet Anomaly Francisco J Rods Platelet Estimate Clumped Platelets Plt Clumps, EDTA Large Platelets Giant Platelets Platelet Satelliting Plt Morphology Comment RBC Morphology Dimorphic RBCs Polychromasia Hypochromasia Poikilocytosis Anisocytosis Microcytosis Macrocytosis Spherocytes Pappenheimer Bodies Sickle Cells Target Cells Tear Drop Cells Ovalocytes Helmet Cells [place] Bodies Mcintosh Rings [place] Cells Bite Cells Crenated Cell Elliptocytes Acanthocytes (Spur) Rouleaux Hemoglobin C Crystals Schistocytes Malaria parasites Garry Bodies Hem Pathologist Commnt Sodium Potassium Chloride Carbon Dioxide Anion Gap BUN Creatinine Estimated GFR BUN/Creatinine Ratio Glucose POC Glucose 45 L 48 L 131 H Calcium Coronavirus (PCR) 02/04/21 02/04/21 02/04/21 06:41 07:38 08:30 Plt Count Add Manual Diff Total Counted Seg Neuts % (Manual) Lymphocytes % (Manual) Monocytes % (Manual) Myelocytes % Nucleated RBC % Seg Neutrophils # Man Band Neutrophils # Lymphocytes # (Manual) Abs React Lymphs (Man) Monocytes # (Manual) Eosinophils # (Manual) Basophils # (Manual) Metamyelocytes # Myelocytes # Promyelocytes # Blast Cells # WBC Morphology Hypersegmented Neuts Hyposegmented Neuts Hypogranular Neuts Smudge Cells Toxic Granulation Toxic Vacuolation Dohle Bodies Pelger-Huet Anomaly Francisco J Rods Platelet Estimate Clumped Platelets Plt Clumps, EDTA Large Platelets Giant Platelets Platelet Satelliting Plt Morphology Comment RBC Morphology Dimorphic RBCs Polychromasia Hypochromasia Poikilocytosis Anisocytosis Microcytosis Macrocytosis Spherocytes Pappenheimer Bodies Sickle Cells Target Cells Tear Drop Cells Ovalocytes Helmet Cells [place] Bodies Mcintosh Rings [place] Cells Bite Cells Crenated Cell Elliptocytes Acanthocytes (Spur) Rouleaux Hemoglobin C Crystals Schistocytes Malaria parasites Garry Bodies Hem Pathologist Commnt Sodium 142 Potassium 4.0 Chloride 106.6 Carbon Dioxide 26 Anion Gap 13 BUN 45 H Creatinine 1.1 Estimated GFR 47 BUN/Creatinine Ratio 41 Glucose 125 H POC Glucose 82 Calcium 8.1 L Coronavirus (PCR) Negative 02/04/21 11:52 Plt Count Add Manual Diff Total Counted Seg Neuts % (Manual) Lymphocytes % (Manual) Monocytes % (Manual) Myelocytes % Nucleated RBC % Seg Neutrophils # Man Band Neutrophils # Lymphocytes # (Manual) Abs React Lymphs (Man) Monocytes # (Manual) Eosinophils # (Manual) Basophils # (Manual) Metamyelocytes # Myelocytes # Promyelocytes # Blast Cells # WBC Morphology Hypersegmented Neuts Hyposegmented Neuts Hypogranular Neuts Smudge Cells Toxic Granulation Toxic Vacuolation Dohle Bodies Pelger-Huet Anomaly Francisco J Rods Platelet Estimate Clumped Platelets Plt Clumps, EDTA Large Platelets Giant Platelets Platelet Satelliting Plt Morphology Comment RBC Morphology Dimorphic RBCs Polychromasia Hypochromasia Poikilocytosis Anisocytosis Microcytosis Macrocytosis Spherocytes Pappenheimer Bodies Sickle Cells Target Cells Tear Drop Cells Ovalocytes Helmet Cells [place] Bodies Mcintosh Rings Guillermina Cells Bite Cells Crenated Cell Elliptocytes Acanthocytes (Spur) Rouleaux Hemoglobin C Crystals Schistocytes Malaria parasites Garry Bodies Hem Pathologist Commnt Sodium Potassium Chloride Carbon Dioxide Anion Gap BUN Creatinine Estimated GFR BUN/Creatinine Ratio Glucose POC Glucose 105 Calcium Coronavirus (PCR)
[2021-02-05] MEDS: PIPERACIL-TAZO 2.25 GM/50 ML 2.25 GM/50 ML BAG IV SCH ×2 (00:15→23:27)
--- NOTE | 2021-02-05 07:39 | Progress Note ---
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 Patient has diminished cognition at the time my evaluation and is unable to provide history. Patient history provided by EMS staff, ED staff, [facility] facility staff, as well as patient daughter who was made available by telephone for interview. As per daughter she was notified by [facility] staff today and informed that the patient "was getting sick". The patient has experienced decreased responsiveness as well as increased weakness over the past 1 week with acute worsening of symptoms over the past 1 day. EMS was notified and upon arrival the patient was found to be in distress and was subsequently transported to [facility] for further care and evaluation of the aforementioned symptoms. The patient was seen and evaluated in the emergency department. All lab and imaging studies reviewed. Patient was found to have a pulse oximetry of 85% on room air which is consistent with acute hypoxemic respiratory failure. A chest x-ray revealed bilateral pneumonia. The patient was also found to have sepsis, acute kidney injury, as well as severe hypernatremia. The patient was admitted to medical floor and initiated on sepsis protocol, pneumonia protocol, as well as coronavirus protocol. No further history is obtainable. The patient has diminished cognition but has a positive gag reflex and is able to protect her airway without difficulty the time my evaluation. Advanced care planning conducted in ED. Hospital course to date 01/27: Patient seen and examined, very lethargic, and appears deconditioned and dry. - ID and Nephrology consult - Gentle hydration while awaiting COVID testing. - Monitor Platelet level - Follow cultures. - Q2H turns 01/28: Patient seen and examined unable to get Dobbhoff yesterday the nurse yesterday said that he was able to tolerate pured diet as recommended by speech therapist. Although today's nurse reports that the patient is not tolerating so we will try the Dobbhoff again. We will continue to reevaluate and on my examination he actually opens her mouth and responds to some questions recommended we try assistance with feeding again today. Renal function showing some improvement ID input appreciated continue antibiotics at this time. Leukocytosis still worse we will recheck. Assessment: 85-year-old female with history of dementia, cementation, sacral decubitus ulcer, admitted on 01/26/2021 secondary to a week history of decreased responsiveness and generalized weakness associated with shortness of breath 01/29/21 Patient is seen and examined. Patient is awake alert but demented. Patient pulled out the Dobbhoff tube. Will reinsert the Dobbhoff tube today and if possible start feeding. If needed will put the patient on restraint. Continue current management. Nutritional evaluation. Recheck CBC CMP in the morning. Nephrology follow-up. Assessment: 85-year-old female with history of dementia, cementation, sacral decubitus ulcer, admitted on 01/26/2021 secondary to a week history of decreased responsiveness and generalized weakness associated with shortness of breath: 01/30: Patient seen and examined, she is staill very leathrgic, tube feed is ongoing, unfortunately worsening metabolic acidosis. I spoke to the patients daughter and discussed overall medical condition, while they maintained DNR, they do not want comfort measure or hospice. I also advised that patient is having liver failure. Will further evaluate the liver Nephrology input appreciated. Will await Wound care evaluation and may need a surgical eval of the multiple wounds for possible debridement. Aspiration precautions Poor prognosis 01/31: Continues to be lethargic . Very frail . Surgery consulted for wound care evaluation. Prognosis remains poor. Bedside excision completed by surgery. ID consultation obtained. 02/01/2021: Patient continues to be lethargic. Blood sugar is noted to be low with reading of 20. Ordered glucagon 1 mg IV x1. Patient had not been receiv ing tube feeds due to her pulling Dobbhoff. Speech therapy recommends PEG tube placement. GI consulted for elevated transaminases and PEG tube placement. Will follow recs. 02/02/2021: ID and GI recs noted. GI will plan for PEG tube tomorrow. Continuing zosyn. Poor prognosis. 02/03/2021: Awaiting PEG tube placement. Plan for d/c back to [facility] afterwards. COVID test is ordered. Prognosis remains very poor. 02/04/2021: S/p PEG. tolerating well. Awaiting covid test result. Patient was t reated with prolongued course of antibiotics throughout her hospital stay and had bedside debrdiement for pressure ulcer wounds by general surgery. Liver evaluation was completed by GI/hepatology who stated etiology was likely due to sepsis/hypotension. Liver enzymes have since normalized. Prognosis is very poor given patient malnourished state, multiple comorbidities and high suspicion for malignancy given lytic lesions on bone. She is a DNR and a candidate for hospice however per the family request they would like her to return to [facility]. can be discharge back to [facility]. 02/05/2021: Will go saturday back to [facility]. (1) Sepsis Current Visit: Yes Status: Acute Plan to address problem: Sepsis protocol: IV antibiotic therapy, IV fluid resuscitation therapy, serial lactic acid level, monitor urine output every shift, monitor fluid balance, maintain mean arterial pressure greater than equal 65, blood culture. Pressure ulcers unlikely per surgery ?Osteomyelitis- CTAP ordered Continue Zosyn IV. (2) Suspected 2019 novel coronavirus infection Current Visit: Yes Status: Acute Plan to address problem: Coronavirus protocol: IV steroid therapy, IV antibiotic therapy, supplemental ox ygen, pulse oximetry, contact precautions, isolation precautions, nebulizer therapy, vitamin C therapy, vitamin D therapy, zinc therapy, (3) Severe malnutrition Current Visit: Yes Status: Acute Plan to address problem: Dietary supplementation, supportive care. (4) Hypernatremia Current Visit: Yes Status: Acute Plan to address problem: IV fluid resuscitation therapy, BMP, repeat BMP in a.m. (5) Acute kidney injury (SUDHIR) with acute tubular necrosis (ATN) Current Visit: Yes Status: Acute Plan to address problem: BMP, IV fluid resuscitation therapy, repeat BMP in a.m. to monitor serum creatinine as well as GFR (6) Multiple myeloma Current Visit: Yes Status: Acute Qualifiers: Multiple myeloma remission status: unspecified Qualified Code(s): C90.00 - Multiple myeloma not having achieved remission Plan to address problem: Supportive care, lytic bone lesions on x-ray. Patient family informed. No intervention desired. ID recommends CTAP. Will order (7) Bilateral pneumonia Current Visit: Yes Status: Acute Plan to address problem: Pneumonia protocol: Chest x-ray, CBC, CMP, supplemental oxygen, pulse oximetry, nebulizer therapy, blood culture. IV antibiotic therapy. (8) Multiple Pressure ulcer, Sacral Decubitus Ulcer - s/p bedside debridement by surgery. - low suspicion for source of sepsis, leukocytosis. (9) Anemia (10)Lactic Acidosis 11) Transaminits AST: 1184, ALT: 397. Was normal on admission Follow hepatitis serology D/c all hepatotoxic agents. GI consulted to evaluate (12) Advance care planning Current Visit: Yes Status: Acute Plan to address problem: Disease education conducted, care plan discussed, diagnosis discussed, poor prognosis discussed. Patient daughter Emy Chambers informed of patient prognosis. Patient is DNR. Patient daughter elects to have medical therapy at this time. Patient daughter made aware that patient may not tolerate therapy an d current therapy may hasten patient demise. Patient daughter acknowledges understanding instructions patient daughter acknowledges understanding and agreement with current care plan. +30 minutes. (13)DVT prophylaxis Current Visit: Yes Status: Acute Plan to address problem: SCD to bilateral lower extremities while in bed History Interval history: No overnight events or changes in clinical picture. Hospitalist Physical - Physical exam Narrative exam: Narrative exam: General appearance: Present: mild distress, contracted - EENT ENT: hearing decreased, other, dry mucus membrane - Neck Neck: Present: supple, normal ROM - Respiratory Respiratory effort: labored Respiratory: bilateral: diminished, rhonchi - Cardiovascular Rhythm: regular Heart Sounds: Present: S1 & S2 - Extremities Extremities: pulses symmetrical, No edema Extremity abnormal: ulceration Peripheral Pulses: abnormal (Capillary refill greater than 3.5 seconds) - Abdominal General gastrointestinal: Present: soft, non-tender, non-distended, normal bowel sounds. s/p peg. Female genitourinary: Present: normal - Integumentary Integumentary: Present: multiple ecchymotic injury, clear, dry, clammy, d ecreased turgor - Musculoskeletal Musculoskeletal: generalized weakness - Psychiatric Psychiatric: no appropriate mood/affect, no intact judgment & insight, no memory intact - Neurologic Neurologic: AOx 0. not following commands. - Constitutional Vitals: Temp Pulse Resp BP Pulse Ox 99.5 F 65 16 104/61 73 L 02/04/21 16:48 02/05/21 04:58 02/05/21 04:58 02/05/21 04:58 02/05/21 04:58 General appearance: Present: mild distress Results - Labs CBC & Chem 7: 02/03/21 05:49 02/04/21 06:41 Labs: Laboratory Last Values WBC 15.4 K/mm3 (4.5-11.0) H 02/03/21 05:49 RBC 2.05 M/mm3 (3.65-5.03) L 02/03/21 05:49 Hgb 7.9 gm/dl (10.1-14.3) L 02/03/21 05:49 Hct 19.2 % (30.3-42.9) L* 02/03/21 05:49 MCV 94 fl (79-97) 02/03/21 05:49 MCH 38 pg (28-32) H 02/03/21 05:49 MCHC 41 % (30-34) H* 02/03/21 05:49 RDW 23.6 % (13.2-15.2) H 02/03/21 05:49 Plt Count 89 K/mm3 (140-440) L 02/03/21 05:49 Lymph % (Auto) Airconditioning Plant Operator 01/30/21 08:09 [place] % (Auto) Airconditioning Plant Operator 01/30/21 08:09 Eos % (Auto) Airconditioning Plant Operator 01/30/21 08:09 Baso % (Auto) Airconditioning Plant Operator 01/30/21 08:09 Lymph # (Auto) Airconditioning Plant Operator 01/30/21 08:09 [place] # (Auto) Airconditioning Plant Operator 01/30/21 08:09 Eos # (Auto) Airconditioning Plant Operator 01/30/21 08:09 Baso # (Auto) Airconditioning Plant Operator 01/30/21 08:09 Add Manual Diff Complete 02/03/21 05:49 Total Counted 100 02/03/21 05:49 Seg Neutrophils % Airconditioning Plant Operator 01/30/21 08:09 Seg Neuts % (Manual) 21.0 % (40.0-70.0) L 02/03/21 05:49 Band Neutrophils % 10.0 % 01/30/21 08:09 Lymphocytes % (Manual) 23.0 % (13.4-35.0) 02/03/21 05:49 Reactive Lymphs % (Man) 1.0 % 01/30/21 08:09 Monocytes % (Manual) 8.0 % (0.0-7.3) H 02/03/21 05:49 Eosinophils % (Manual) 1.0 % (0.0-4.3) 01/30/21 08:09 Basophils % (Manual) 0.5 % (0.0-1.8) 01/27/21 18:10 Metamyelocytes % 7.0 % 01/30/21 08:09 Myelocytes % 48.0 % 02/03/21 05:49 Nucleated RBC % Not Reportable 02/03/21 05:49 Seg Neutrophils # Airconditioning Plant Operator 01/30/21 08:09 Seg Neutrophils # Man 3.2 K/mm3 (1.8-7.7) 02/03/21 05:49 Band Neutrophils # 0.0 K/mm3 02/03/21 05:49 Lymphocytes # (Manual) 3.5 K/mm3 (1.2-5.4) 02/03/21 05:49 Abs React Lymphs (Man) 0.0 K/mm3 02/03/21 05:49 Monocytes # (Manual) 1.2 K/mm3 (0.0-0.8) H 02/03/21 05:49 Eosinophils # (Manual) 0.0 K/mm3 (0.0-0.4) 02/03/21 05:49 Basophils # (Manual) 0.0 K/mm3 (0.0-0.1) 02/03/21 05:49 Metamyelocytes # 0.0 K/mm3 02/03/21 05:49 Myelocytes # 7.4 K/mm3 02/03/21 05:49 Promyelocytes # 0.0 K/mm3 02/03/21 05:49 Blast Cells # 0.0 K/mm3 02/03/21 05:49 WBC Morphology Not Reportable 02/03/21 05:49 Hypersegmented Neuts Not Reportable 02/03/21 05:49 Hyposegmented Neuts Not Reportable 02/03/21 05:49 Hypogranular Neuts Not Reportable 02/03/21 05:49 Smudge Cells Not Reportable 02/03/21 05:49 Toxic Granulation Not Reportable 02/03/21 05:49 Toxic Vacuolation Not Reportable 02/03/21 05:49 Dohle Bodies Not Reportable 02/03/21 05:49 Pelger-Huet Anomaly Not Reportable 02/03/21 05:49 Francisco J Rods Not Reportable 02/03/21 05:49 Platelet Estimate Consistent w auto 02/03/21 05:49 Clumped Platelets Not Reportable 02/03/21 05:49 Plt Clumps, EDTA Not Reportable 02/03/21 05:49 Large Platelets Not Reportable 02/03/21 05:49 Giant Platelets Not Reportable 02/03/21 05:49 Platelet Satelliting Not Reportable 02/03/21 05:49 Plt Morphology Comment Not Reportable 02/03/21 05:49 RBC Morphology Not Reportable 02/03/21 05:49 Dimorphic RBCs Not Reportable 02/03/21 05:49 Polychromasia Not Reportable 02/03/21 05:49 Hypochromasia Not Reportable 02/03/21 05:49 Poikilocytosis Not Reportable 02/03/21 05:49 Anisocytosis Not Reportable 02/03/21 05:49 Microcytosis Not Reportable 02/03/21 05:49 Macrocytosis Not Reportable 02/03/21 05:49 Spherocytes Not Reportable 02/03/21 05:49 Pappenheimer Bodies Not Reportable 02/03/21 05:49 Sickle Cells Not Reportable 02/03/21 05:49 Target Cells Not Reportable 02/03/21 05:49 Tear Drop Cells Not Reportable 02/03/21 05:49 Ovalocytes Not Reportable 02/03/21 05:49 Helmet Cells Not Reportable 02/03/21 05:49 [place] Bodies Not Reportable 02/03/21 05:49 [place] Rings Not Reportable 02/03/21 05:49 [place] Cells Not Reportable 02/03/21 05:49 Bite Cells Not Reportable 02/03/21 05:49 Crenated Cell Not Reportable 02/03/21 05:49 Elliptocytes Not Reportable 02/03/21 05:49 Acanthocytes (Spur) Not Reportable 02/03/21 05:49 Rouleaux Not Reportable 02/03/21 05:49 Hemoglobin C Crystals Not Reportable 02/03/21 05:49 Schistocytes Not Reportable 02/03/21 05:49 Malaria parasites Not Reportable 02/03/21 05:49 Garry Bodies Not Reportable 02/03/21 05:49 Hem Pathologist Commnt No 02/03/21 05:49 PT 15.7 Sec. (12.2-14.9) H 02/03/21 05:49 INR 1.19 (0.87-1.13) H 02/03/21 05:49 ABG pH 7.409 pH Units (7.350-7.450) 01/30/21 18:04 ABG pCO2 32.7 mm Hg 01/30/21 18:04 ABG pO2 119.3 mm Hg (80.0-90.0) H 01/30/21 18:04 ABG HCO3 20.2 mmol/L (20.0-26.0) 01/30/21 18:04 ABG O2 Saturation 98.3 % (95.0-99.0) 01/30/21 18:04 ABG O2 Content 8.3 (0.0-44) 01/30/21 18:04 ABG Base Excess -4.1 mmol/L (-2.0-3.0) L 01/30/21 18:04 ABG Hemoglobin 5.9 gm/dl (12.0-16.0) L 01/30/21 18:04 ABG Carboxyhemoglobin 1.3 % (0.0-5.0) 01/30/21 18:04 ABG Methemoglobin 0.1 % (0.0-1.5) 01/30/21 18:04 Oxyhemoglobin 96.9 % (95.0-99.0) 01/30/21 18:04 FiO2 36 % 01/30/21 18:04 Sodium 142 mmol/L (137-145) 02/04/21 06:41 Potassium 4.0 mmol/L (3.6-5.0) 02/04/21 06:41 Chloride 106.6 mmol/L (98-107) 02/04/21 06:41 Carbon Dioxide 26 mmol/L (22-30) 02/04/21 06:41 Anion Gap 13 mmol/L 02/04/21 06:41 BUN 45 mg/dL (7-17) H 02/04/21 06:41 Creatinine 1.1 mg/dL (0.6-1.2) 02/04/21 06:41 Estimated GFR 47 ml/min 02/04/21 06:41 BUN/Creatinine Ratio 41 % 02/04/21 06:41 Glucose 125 mg/dL (65-100) H 02/04/21 06:41 POC Glucose 72 mg/dL (70-105) 02/04/21 21:42 Lactic Acid 1.30 mmol/L (0.7-2.0) 01/27/21 18:10 Calcium 8.1 mg/dL (8.4-10.2) L 02/04/21 06:41 Total Bilirubin 0.20 mg/dL (0.1-1.2) 02/03/21 05:49 Direct Bilirubin < 0.2 mg/dL (0-0.2) 02/02/21 07:38 Indirect Bilirubin 0.0 mg/dL 02/02/21 07:38 AST < 5 units/L (5-40) L 02/03/21 05:49 ALT 5 units/L (7-56) L 02/03/21 05:49 Alkaline Phosphatase 815 units/L (35-129) H 02/03/21 05:49 Total Protein 4.2 g/dL (6.3-8.2) L 02/03/21 05:49 Albumin 1.6 g/dL (3.9-5) L 02/03/21 05:49 Albumin/Globulin Ratio 0.6 % 02/03/21 05:49 Coronavirus (PCR) Negative (Negative) 02/04/21 08:30 Hepatitis A IgM Ab Non-reactive (NonReactive) 02/02/21 07:38 Hep Bs Antigen Nonreactive (Negative) 02/02/21 07:38 Hep B Core IgM Ab Non-reactive (NonReactive) 02/02/21 07:38 Hepatitis C Antibody Non-reactive (NonReactive) 02/02/21 07:38 Blood Type O POSITIVE 01/26/21 19:56 Antibody Screen Negative 01/26/21 19:56 Sorto/IV: Voiding Method Incontinent Active Medications - Current Medications Current Medications: Generic Name Dose Route Start Last Admin Trade Name Freq PRN Reason Stop Dose Admin Albuterol 2.5 mg 01/26/21 18:10 Albuterol 2.5 Mg/3 Ml Nebu IH Q4HRT PRN Shortness Of Breath Lipase/Protease/Amylase 1 each 01/27/21 11:00 Lipase 10,500/Protease 25,000/Amylase 43,750 (Units) Dr Joseph FEEDTUBE PRN PRN For Clogged Feeding Tube Ascorbic Acid 500 mg 01/26/21 22:00 02/04/21 22:37 Ascorbic Acid 500 Mg Tab PO 500 mg BID VINOD Administration Cholecalciferol 1,000 unit 01/27/21 10:00 02/04/21 10:39 Cholecalciferol (Vit D3) 1000 Unit (25 Mcg) Tab PO 1,000 unit QDAY VINOD Administration Dextrose 50 ml 02/03/21 22:16 Dextrose 50% In Water (25gm) 50 Ml Syringe IV Q30MIN PRN Hypoglycemia Protocol Hydromorphone HCl 0.25 mg 01/26/21 18:10 Hydromorphone 1 Mg/1 Ml Inj IV Q4H PRN Pain, Moderate (4-6) Hydromorphone HCl 0.5 mg 01/26/21 18:10 Hydromorphone 1 Mg/1 Ml Inj IV Q24H PRN Pain , Severe (7-10) Dextrose 1,000 mls @ 75 mls/hr 01/28/21 13:00 02/04/21 22:45 D5w IV 75 mls/hr DIRECT VINOD Administration Piperacillin Sod/Tazobactam Sod 2.25 gm in 50 mls @ 100 mls/hr 02/02/21 18:00 02/05/21 00:15 Zosyn/Ns 2.25 Gm/50ml IV 02/05/21 18:29 100 mls/hr Q6HR VINOD Administration Lansoprazole 30 mg 02/03/21 15:00 02/04/21 10:39 Lansoprazole 30 Mg Solutab FEEDTUBE 30 mg QDAY VINOD Administration Ondansetron HCl 4 mg 01/26/21 18:10 Ondansetron 4 Mg/2 Ml Inj IV Q8H PRN Nausea And Vomiting Simple Syrup 15 ml 01/27/21 11:00 Simple Syrup 15 Ml FEEDTUBE PRN PRN Hypoglycemia Simple Syrup 30 ml 01/27/21 11:00 02/03/21 21:19 Simple Syrup 15 Ml FEEDTUBE 30 ml PRN PRN Administration Hypoglycemia Sodium Bicarbonate 325 mg 01/27/21 11:00 Sodium Bicarbonate 325 Mg Tab FEEDTUBE PRN PRN For Clogged Feeding Tube Sodium Chloride 10 ml 01/26/21 22:00 02/04/21 22:38 Sodium Chloride 0.9% 10 Ml Flush Syringe IV 10 ml BID VINOD Administration Sodium Chloride 10 ml 01/26/21 18:10 Sodium Chloride 0.9% 10 Ml Flush Syringe IV PRN PRN LINE FLUSH Sodium Hypochlorite 1 applic 02/01/21 10:00 02/04/21 22:41 Sodium Hypochlorite, Dakin's 1/2 Strength (0.25%) 473 Ml Topical Soln TP 1 applicatio BID VINOD Administration Nutrition/Malnutrition Assess - Dietary Evaluation Nutrition/Malnutrition Findings: Nutrition Notes Start: 01/27/21 10:34 Freq: Status: Active Protocol: Document 02/03/21 10:27 GB (Rec: 02/03/21 10:41 GB [id number]) Nutrition Notes Need for Assessment generated from: MD Order Initial or Follow up Reassessment Current Diagnosis Acute Kidney Injury,Sepsis, Malnutrition Other Pertinent Diagnosis PEG placement 02/03, FTT, multiple myeloma Current Diet NPO Labs/Tests 02/03: BUN 51, glucose 139, Ca 7.6, AST <5, ALT 5, AlkP 815 Pertinent Medications Vit C, Vit D3, Vit K, D5 1000ml (170kcal) Height 5 ft 3 in Weight 40 kg [place] Body Weight (kg) 52.27 BMI 15.6 Weight change and time frame 01/26: 45.359kg 02/02: 40kg change: -5.359kg for -11.8% significance Weight Status Underweight Subjective/Other Information Dementia disease progression, NH resident, PEG placement for nutrition. Percent of energy/protein needs met: TF orders to meet 100% minimal estimated energy needs 30kcal /kg. Burn Absent Trauma Absent GI Symptoms None Food Allergy No Skin Integrity/Comment stage II pressure injuries x3 Minimum of two criteria Yes Interpretation of Weight Loss (severe) >2% in 1 week Body Fat Depletion Mild depletion (non-severe) Muscle Mass Mild Depletion (non-severe) #2 Nutrition Diagnosis Increased nutrient needs ( specify in comment below) Comments: protein Etiology wound healing As Evidenced by Signs and Symptoms stage II pressure injuries x3: sacral, rt and lt hips Diagnosis Progress(for reassessment Continues documentation) #1 Nutrition Diagnosis Malnutrition Comments: weight loss of -11.8% in hospital Etiology advanced age, chronic disease As Evidenced by Signs and Symptoms muscle and fat wasting Diagnosis Progress(for reassessment Continues documentation) Is patient on ventilator? No Is Patient Ambulatory and/or Out of Bed No REE[facility]) 984.636 Kcal/Kg value to use for calculation 30 Approximate Energy Requirements Using 1200 kcal/Kg Calculation Used for Recommendations Kcal/kg Additional Notes Protein: 1-1.5g/kg @ 40k- 60g Fluids: 1 ml/kcal or per MD Nutrition Intervention Change Diet Order: continue as tolerated for pleasure Nutrition Support: Glucerna 1.2 at goal rate of 45ml/hr Flush 100 ml q4h or per MD Kcal 1,296 Protein (gm) 65 Fluid (mL) 864 Add Supplement/Snack (indicate name/kcal Michael BID /protein ) Provides kCal: 190 Provides Protein (gm) 5 Goal #1 TF formula tolerated at goal rate of 45ml/hr Goal #2 weight to maintain or gain +3% current weight during LOS Goal #3 tolerate nutritional supplement MICHAEL via PEG BID for LOS Follow-Up By: 02/06/21 Additional Comments New PEG, TF order placed to start 02/04, tolerating TF
[2021-02-05] MEDS: SIMPLE SYRUP 15 ML FEEDTUBE PRN (08:07)
[2021-02-05] MEDS: LANSOPRAZOLE 30 MG SOLUTAB FEEDTUBE SCH (09:09)
[2021-02-05] MEDS: ASCORBIC ACID 500 MG TAB PO SCH ×2 (09:09→23:24)
[2021-02-05] MEDS: CHOLECALCIFEROL (VIT D3) 1000 UNIT (25 mcg) TAB PO SCH (09:09)
[2021-02-05] MEDS: SODIUM HYPOCHLORITE, DAKIN'S 1/2 STRENGTH (0.25%) 473 ML TOPICAL SOLN TP SCH ×2 (09:10→23:25)
[2021-02-05] MEDS: DEXTROSE 5% IN WATER 1,000 ML IV SCH (18:09)
[2021-02-06] MEDS: PIPERACIL-TAZO 2.25 GM/50 ML 2.25 GM/50 ML BAG IV SCH (05:25)
--- NOTE | 2021-02-06 10:12 | Progress Note ---
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 Patient has diminished cognition at the time my evaluation and is unable to provide history. Patient history provided by EMS staff, ED staff, [facility] staff, as well as patient daughter who was made available by telephone for interview. As per daughter she was notified by [facility] staff today and informed that the patient "was getting sick". The patient has experienced decreased responsiveness as well as increased weakness over the past 1 week with acute worsening of symptoms over the past 1 day. EMS was notified and upon arrival the patient was found to be in distress and was subsequently transported to [facility] for further care and evaluation of the aforementioned symptoms. The patient was seen and evaluated in the emergency department. All lab and imaging studies reviewed. Patient was found to have a pulse oximetry of 85% on room air which is consistent with acute hypoxemic respiratory failure. A chest x-ray revealed bilateral pneumonia. The patient was also found to have sepsis, acute kidney injury, as well as severe hypernatremia. The patient was admitted to medical floor and initiated on sepsis protocol, pneumonia protocol, as well as coronavirus protocol. No further history is obtainable. The patient has diminished cognition but has a positive gag reflex and is able to protect her airway without difficulty the time my evaluation. Advanced care planning conducted in ED. Hospital course to date 01/27: Patient seen and examined, very lethargic, and appears deconditioned and dry. - ID and Nephrology consult - Gentle hydration while awaiting COVID testing. - Monitor Platelet level - Follow cultures. - Q2H turns 01/28: Patient seen and examined unable to get Dobbhoff yesterday the nurse yesterday said that he was able to tolerate pured diet as recommended by speech therapist. Although today's nurse reports that the patient is not tolerating so we will try the Dobbhoff again. We will continue to reevaluate and on my examination he actually opens her mouth and responds to some questions recommended we try assistance with feeding again today. Renal function showing some improvement ID input appreciated continue antibiotics at this time. Leukocytosis still worse we will recheck. Assessment: 85-year-old female with history of dementia, cementation, sacral decubitus ulcer, admitted on 01/26/2021 secondary to a week history of decreased responsiveness and generalized weakness associated with shortness of breath 01/29/21 Patient is seen and examined. Patient is awake alert but demented. Patient pulled out the Dobbhoff tube. Will reinsert the Dobbhoff tube today and if possible start feeding. If needed will put the patient on restraint. Continue current management. Nutritional evaluation. Recheck CBC CMP in the morning. Nephrology follow-up. Assessment: 85-year-old female with history of dementia, cementation, sacral decubitus ulcer, admitted on 01/26/2021 secondary to a week history of decreased responsiveness and generalized weakness associated with shortness of breath: 01/30: Patient seen and examined, she is staill very leathrgic, tube feed is ongoing, unfortunately worsening metabolic acidosis. I spoke to the patients daughter and discussed overall medical condition, while they maintained DNR, they do not want comfort measure or hospice. I also advised that patient is having liver failure. Will further evaluate the liver Nephrology input appreciated. Will await Wound care evaluation and may need a surgical eval of the multiple wounds for possible debridement. Aspiration precautions Poor prognosis 01/31: Continues to be lethargic . Very frail . Surgery consulted for wound care evaluation. Prognosis remains poor. Bedside excision completed by surgery. ID consultation obtained. 02/01/2021: Patient continues to be lethargic. Blood sugar is noted to be low with reading of 20. Ordered glucagon 1 mg IV x1. Patient had not been receiv ing tube feeds due to her pulling Dobbhoff. Speech therapy recommends PEG tube placement. GI consulted for elevated transaminases and PEG tube placement. Will follow recs. 02/02/2021: ID and GI recs noted. GI will plan for PEG tube tomorrow. Continuing zosyn. Poor prognosis. 02/03/2021: Awaiting PEG tube placement. Plan for d/c back to [facility] afterwards. COVID test is ordered. Prognosis remains very poor. 02/04/2021: S/p PEG. tolerating well. Awaiting covid test result. Patient was t reated with prolongued course of antibiotics throughout her hospital stay and had bedside debrdiement for pressure ulcer wounds by general surgery. Liver evaluation was completed by GI/hepatology who stated etiology was likely due to sepsis/hypotension. Liver enzymes have since normalized. Prognosis is very poor given patient malnourished state, multiple comorbidities and high suspicion for malignancy given lytic lesions on bone. She is a DNR and a candidate for hospice however per the family request they would like her to return to [facility]. can be discharge back to [facility]. 02/05/2021: Will go saturday back to [facility]. 02/06/2021: Anticipate patient will go back to [facility] today (1) Sepsis Current Visit: Yes Status: Acute Plan to address problem: Sepsis protocol: IV antibiotic therapy, IV fluid resuscitation therapy, serial lactic acid level, monitor urine output every shift, monitor fluid balance, maintain mean arterial pressure greater than equal 65, blood culture. Pressure ulcers unlikely per surgery ?Osteomyelitis- CTAP ordered Continue Zosyn IV. (2) Suspected 2019 novel coronavirus infection Current Visit: Yes Status: Acute Plan to address problem: Coronavirus protocol: IV steroid therapy, IV antibiotic therapy, supplemental oxygen, pulse oximetry, contact precautions, isolation precautions, nebulizer therapy, vitamin C therapy, vitamin D therapy, zinc therapy, (3) Severe malnutrition Current Visit: Yes Status: Acute Plan to address problem: Dietary supplementation, supportive care. (4) Hypernatremia Current Visit: Yes Status: Acute Plan to address problem: IV fluid resuscitation therapy, BMP, repeat BMP in a.m. (5) Acute kidney injury (SUDHIR) with acute tubular necrosis (ATN) Current Visit: Yes Status: Acute Plan to address problem: BMP, IV fluid resuscitation therapy, repeat BMP in a.m. to monitor serum creatinine as well as GFR (6) Multiple myeloma Current Visit: Yes Status: Acute Qualifiers: Multiple myeloma remission status: unspecified Qualified Code(s): C90.00 - Multiple myeloma not having achieved remission Plan to address problem: Supportive care, lytic bone lesions on x-ray. Patient family informed. No intervention desired. ID recommends CTAP. Will order (7) Bilateral pneumonia Current Visit: Yes Status: Acute Plan to address problem: Pneumonia protocol: Chest x-ray, CBC, CMP, supplemental oxygen, pulse oximetry, nebulizer therapy, blood culture. IV antibiotic therapy. (8) Multiple Pressure ulcer, Sacral Decubitus Ulcer - s/p bedside debridement by surgery. - low suspicion for source of sepsis, leukocytosis. (9) Anemia (10)Lactic Acidosis 11) Transaminits AST: 1184, ALT: 397. Was normal on admission Follow hepatitis serology D/c all hepatotoxic agents. GI consulted to evaluate (12) Advance care planning Current Visit: Yes Status: Acute Plan to address problem: Disease education conducted, care plan discussed, diagnosis discussed, poor prognosis discussed. Patient daughter Emy Chambers informed of patient prognosis. Patient is DNR. Patient daughter elects to have medical therapy at this time. Patient daughter made aware that patient may not tolerate therapy and current therapy may hasten patient demise. Patient daughter acknowledges understanding instructions patient daughter acknowledges understanding and agreement with current care plan. +30 minutes. (13)DVT prophylaxis Current Visit: Yes Status: Acute Plan to address problem: SCD to bilateral lower extremities while in bed History Interval history: No overnight events or changes in clinical picture. Hospitalist Physical - Physical exam Narrative exam: Narrative exam: General appearance: Present: mild distress, contracted - EENT ENT: hearing decreased, other, dry mucus membrane - Neck Neck: Present: supple, normal ROM - Respiratory Respiratory effort: labored Respiratory: bilateral: diminished, rhonchi - Cardiovascular Rhythm: regular Heart Sounds: Present: S1 & S2 - Extremities Extremities: pulses symmetrical, No edema Extremity abnormal: ulceration Peripheral Pulses: abnormal (Capillary refill greater than 3.5 seconds) - Abdominal General gastrointestinal: Present: soft, non-tender, non-distended, normal bowel sounds. s/p peg. Female genitourinary: Present: normal - Integumentary Integumentary: Present: multiple ecchymotic injury, clear, dry, clammy, decreased turgor - Musculoskeletal Musculoskeletal: generalized weakness - Psychiatric Psychiatric: no appropriate mood/affect, no intact judgment & insight, no memory intact - Neurologic Neurologic: AOx 0. not following commands. - Constitutional Vitals: Temp Pulse Resp BP Pulse Ox 99.5 F 77 16 108/66 92 02/04/21 16:48 02/05/21 13:41 02/05/21 21:33 02/05/21 21:33 02/05/21 22:00 General appearance: Present: mild distress Results - Labs CBC & Chem 7: 02/03/21 05:49 02/04/21 06:41 Labs: Laboratory Last Values WBC 15.4 K/mm3 (4.5-11.0) H 02/03/21 05:49 RBC 2.05 M/mm3 (3.65-5.03) L 02/03/21 05:49 Hgb 7.9 gm/dl (10.1-14.3) L 02/03/21 05:49 Hct 19.2 % (30.3-42.9) L* 02/03/21 05:49 MCV 94 fl (79-97) 02/03/21 05:49 MCH 38 pg (28-32) H 02/03/21 05:49 MCHC 41 % (30-34) H* 02/03/21 05:49 RDW 23.6 % (13.2-15.2) H 02/03/21 05:49 Plt Count 89 K/mm3 (140-440) L 02/03/21 05:49 Lymph % (Auto) Water Meter Installer 01/30/21 08:09 [place] % (Auto) Water Meter Installer 01/30/21 08:09 Eos % (Auto) Water Meter Installer 01/30/21 08:09 Baso % (Auto) Water Meter Installer 01/30/21 08:09 Lymph # (Auto) Water Meter Installer 01/30/21 08:09 [place] # (Auto) Water Meter Installer 01/30/21 08:09 Eos # (Auto) Water Meter Installer 01/30/21 08:09 Baso # (Auto) Water Meter Installer 01/30/21 08:09 Add Manual Diff Complete 02/03/21 05:49 Total Counted 100 02/03/21 05:49 Seg Neutrophils % Water Meter Installer 01/30/21 08:09 Seg Neuts % (Manual) 21.0 % (40.0-70.0) L 02/03/21 05:49 Band Neutrophils % 10.0 % 01/30/21 08:09 Lymphocytes % (Manual) 23.0 % (13.4-35.0) 02/03/21 05:49 Reactive Lymphs % (Man) 1.0 % 01/30/21 08:09 Monocytes % (Manual) 8.0 % (0.0-7.3) H 02/03/21 05:49 Eosinophils % (Manual) 1.0 % (0.0-4.3) 01/30/21 08:09 Basophils % (Manual) 0.5 % (0.0-1.8) 01/27/21 18:10 Metamyelocytes % 7.0 % 01/30/21 08:09 Myelocytes % 48.0 % 02/03/21 05:49 Nucleated RBC % Not Reportable 02/03/21 05:49 Seg Neutrophils # Water Meter Installer 01/30/21 08:09 Seg Neutrophils # Man 3.2 K/mm3 (1.8-7.7) 02/03/21 05:49 Band Neutrophils # 0.0 K/mm3 02/03/21 05:49 Lymphocytes # (Manual) 3.5 K/mm3 (1.2-5.4) 02/03/21 05:49 Abs React Lymphs (Man) 0.0 K/mm3 02/03/21 05:49 Monocytes # (Manual) 1.2 K/mm3 (0.0-0.8) H 02/03/21 05:49 Eosinophils # (Manual) 0.0 K/mm3 (0.0-0.4) 02/03/21 05:49 Basophils # (Manual) 0.0 K/mm3 (0.0-0.1) 02/03/21 05:49 Metamyelocytes # 0.0 K/mm3 02/03/21 05:49 Myelocytes # 7.4 K/mm3 02/03/21 05:49 Promyelocytes # 0.0 K/mm3 02/03/21 05:49 Blast Cells # 0.0 K/mm3 02/03/21 05:49 WBC Morphology Not Reportable 02/03/21 05:49 Hypersegmented Neuts Not Reportable 02/03/21 05:49 Hyposegmented Neuts Not Reportable 02/03/21 05:49 Hypogranular Neuts Not Reportable 02/03/21 05:49 Smudge Cells Not Reportable 02/03/21 05:49 Toxic Granulation Not Reportable 02/03/21 05:49 Toxic Vacuolation Not Reportable 02/03/21 05:49 Dohle Bodies Not Reportable 02/03/21 05:49 Pelger-Huet Anomaly Not Reportable 02/03/21 05:49 Francisco J Rods Not Reportable 02/03/21 05:49 Platelet Estimate Consistent w auto 02/03/21 05:49 Clumped Platelets Not Reportable 02/03/21 05:49 Plt Clumps, EDTA Not Reportable 02/03/21 05:49 Large Platelets Not Reportable 02/03/21 05:49 Giant Platelets Not Reportable 02/03/21 05:49 Platelet Satelliting Not Reportable 02/03/21 05:49 Plt Morphology Comment Not Reportable 02/03/21 05:49 RBC Morphology Not Reportable 02/03/21 05:49 Dimorphic RBCs Not Reportable 02/03/21 05:49 Polychromasia Not Reportable 02/03/21 05:49 Hypochromasia Not Reportable 02/03/21 05:49 Poikilocytosis Not Reportable 02/03/21 05:49 Anisocytosis Not Reportable 02/03/21 05:49 Microcytosis Not Reportable 02/03/21 05:49 Macrocytosis Not Reportable 02/03/21 05:49 Spherocytes Not Reportable 02/03/21 05:49 Pappenheimer Bodies Not Reportable 02/03/21 05:49 Sickle Cells Not Reportable 02/03/21 05:49 Target Cells Not Reportable 02/03/21 05:49 Tear Drop Cells Not Reportable 02/03/21 05:49 Ovalocytes Not Reportable 02/03/21 05:49 Helmet Cells Not Reportable 02/03/21 05:49 [place] Bodies Not Reportable 02/03/21 05:49 Rover Rings Not Reportable 02/03/21 05:49 Guillermina Cells Not Reportable 02/03/21 05:49 Bite Cells Not Reportable 02/03/21 05:49 Crenated Cell Not Reportable 02/03/21 05:49 Elliptocytes Not Reportable 02/03/21 05:49 Acanthocytes (Spur) Not Reportable 02/03/21 05:49 Rouleaux Not Reportable 02/03/21 05:49 Hemoglobin C Crystals Not Reportable 02/03/21 05:49 Schistocytes Not Reportable 02/03/21 05:49 Malaria parasites Not Reportable 02/03/21 05:49 Grary Bodies Not Reportable 02/03/21 05:49 Hem Pathologist Commnt No 02/03/21 05:49 PT 15.7 Sec. (12.2-14.9) H 02/03/21 05:49 INR 1.19 (0.87-1.13) H 02/03/21 05:49 ABG pH 7.409 pH Units (7.350-7.450) 01/30/21 18:04 ABG pCO2 32.7 mm Hg 01/30/21 18:04 ABG pO2 119.3 mm Hg (80.0-90.0) H 01/30/21 18:04 ABG HCO3 20.2 mmol/L (20.0-26.0) 01/30/21 18:04 ABG O2 Saturation 98.3 % (95.0-99.0) 01/30/21 18:04 ABG O2 Content 8.3 (0.0-44) 01/30/21 18:04 ABG Base Excess -4.1 mmol/L (-2.0-3.0) L 01/30/21 18:04 ABG Hemoglobin 5.9 gm/dl (12.0-16.0) L 01/30/21 18:04 ABG Carboxyhemoglobin 1.3 % (0.0-5.0) 01/30/21 18:04 ABG Methemoglobin 0.1 % (0.0-1.5) 01/30/21 18:04 Oxyhemoglobin 96.9 % (95.0-99.0) 01/30/21 18:04 FiO2 36 % 01/30/21 18:04 Sodium 142 mmol/L (137-145) 02/04/21 06:41 Potassium 4.0 mmol/L (3.6-5.0) 02/04/21 06:41 Chloride 106.6 mmol/L (98-107) 02/04/21 06:41 Carbon Dioxide 26 mmol/L (22-30) 02/04/21 06:41 Anion Gap 13 mmol/L 02/04/21 06:41 BUN 45 mg/dL (7-17) H 02/04/21 06:41 Creatinine 1.1 mg/dL (0.6-1.2) 02/04/21 06:41 Estimated GFR 47 ml/min 02/04/21 06:41 BUN/Creatinine Ratio 41 % 02/04/21 06:41 Glucose 125 mg/dL (65-100) H 02/04/21 06:41 POC Glucose 118 mg/dL (70-105) H 02/06/21 07:45 Lactic Acid 1.30 mmol/L (0.7-2.0) 01/27/21 18:10 Calcium 8.1 mg/dL (8.4-10.2) L 02/04/21 06:41 Total Bilirubin 0.20 mg/dL (0.1-1.2) 02/03/21 05:49 Direct Bilirubin < 0.2 mg/dL (0-0.2) 02/02/21 07:38 Indirect Bilirubin 0.0 mg/dL 02/02/21 07:38 AST < 5 units/L (5-40) L 02/03/21 05:49 ALT 5 units/L (7-56) L 02/03/21 05:49 Alkaline Phosphatase 815 units/L (35-129) H 02/03/21 05:49 Total Protein 4.2 g/dL (6.3-8.2) L 02/03/21 05:49 Albumin 1.6 g/dL (3.9-5) L 02/03/21 05:49 Albumin/Globulin Ratio 0.6 % 02/03/21 05:49 Coronavirus (PCR) Negative (Negative) 02/04/21 08:30 Hepatitis A IgM Ab Non-reactive (NonReactive) 02/02/21 07:38 Hep Bs Antigen Nonreactive (Negative) 02/02/21 07:38 Hep B Core IgM Ab Non-reactive (NonReactive) 02/02/21 07:38 Hepatitis C Antibody Non-reactive (NonReactive) 02/02/21 07:38 Blood Type O POSITIVE 01/26/21 19:56 Antibody Screen Negative 01/26/21 19:56 Sorto/IV: Voiding Method Incontinent Active Medications - Current Medications Current Medications: Generic Name Dose Route Start Last Admin Trade Name Freq PRN Reason Stop Dose Admin Albuterol 2.5 mg 01/26/21 18:10 Albuterol 2.5 Mg/3 Ml Nebu IH Q4HRT PRN Shortness Of Breath Lipase/Protease/Amylase 1 each 01/27/21 11:00 Lipase 10,500/Protease 25,000/Amylase 43,750 (Units) Dr Joseph FEEDTUBE PRN PRN For Clogged Feeding Tube Ascorbic Acid 500 mg 01/26/21 22:00 02/05/21 23:24 Ascorbic Acid 500 Mg Tab PO 500 mg BID VINOD Administration Cholecalciferol 1,000 unit 01/27/21 10:00 02/05/21 09:09 Cholecalciferol (Vit D3) 1000 Unit (25 Mcg) Tab PO 1,000 unit QDAY VINOD Administration Dextrose 50 ml 02/03/21 22:16 Dextrose 50% In Water (25gm) 50 Ml Syringe IV Q30MIN PRN Hypoglycemia Protocol Hydromorphone HCl 0.25 mg 01/26/21 18:10 Hydromorphone 1 Mg/1 Ml Inj IV Q4H PRN Pain, Moderate (4-6) Hydromorphone HCl 0.5 mg 01/26/21 18:10 Hydromorphone 1 Mg/1 Ml Inj IV Q24H PRN Pain , Severe (7-10) Dextrose 1,000 mls @ 75 mls/hr 01/28/21 13:00 02/05/21 18:09 D5w IV 75 mls/hr DIRECT VINOD Administration Lansoprazole 30 mg 02/03/21 15:00 02/05/21 09:09 Lansoprazole 30 Mg Solutab FEEDTUBE 30 mg QDAY VINOD Administration Ondansetron HCl 4 mg 01/26/21 18:10 02/05/21 23:33 Ondansetron 4 Mg/2 Ml Inj IV 4 mg Q8H PRN Administration Nausea And Vomiting Simple Syrup 15 ml 01/27/21 11:00 Simple Syrup 15 Ml FEEDTUBE PRN PRN Hypoglycemia Simple Syrup 30 ml 01/27/21 11:00 02/05/21 08:07 Simple Syrup 15 Ml FEEDTUBE 30 ml PRN PRN Administration Hypoglycemia Sodium Bicarbonate 325 mg 01/27/21 11:00 Sodium Bicarbonate 325 Mg Tab FEEDTUBE PRN PRN For Clogged Feeding Tube Sodium Chloride 10 ml 01/26/21 22:00 02/05/21 23:24 Sodium Chloride 0.9% 10 Ml Flush Syringe IV 10 ml BID VINOD Administration Sodium Chloride 10 ml 01/26/21 18:10 Sodium Chloride 0.9% 10 Ml Flush Syringe IV PRN PRN LINE FLUSH Sodium Hypochlorite 1 applic 02/01/21 10:00 02/05/21 23:25 Sodium Hypochlorite, Dakin's 1/2 Strength (0.25%) 473 Ml Topical Soln TP 1 applicatio BID VINOD Administration Nutrition/Malnutrition Assess - Dietary Evaluation Nutrition/Malnutrition Findings: Nutrition Notes Start: 09/17/21 10:34 Freq: Status: Active Protocol: Document 02/03/21 10:27 GB (Rec: 02/03/21 10:41 GB [id number]) Nutrition Notes Need for Assessment generated from: MD Order Initial or Follow up Reassessment Current Diagnosis Acute Kidney Injury,Sepsis, Malnutrition Other Pertinent Diagnosis PEG placement 02/03, FTT, multiple myeloma Current Diet NPO Labs/Tests 02/03: BUN 51, glucose 139, Ca 7.6, AST <5, ALT 5, AlkP 815 Pertinent Medications Vit C, Vit D3, Vit K, D5 1000ml (170kcal) Height 5 ft 3 in Weight 40 kg [place] Body Weight (kg) 52.27 BMI 15.6 Weight change and time frame 01/26: 45.359kg 02/02: 40kg change: -5.359kg for -11.8% significance Weight Status Underweight Subjective/Other Information Dementia disease progression, NH resident, PEG placement for nutrition. Percent of energy/protein needs met: TF orders to meet 100% minimal estimated energy needs 30kcal /kg. Burn Absent Trauma Absent GI Symptoms None Food Allergy No Skin Integrity/Comment stage II pressure injuries x3 Minimum of two criteria Yes Interpretation of Weight Loss (severe) >2% in 1 week Body Fat Depletion Mild depletion (non-severe) Muscle Mass Mild Depletion (non-severe) #2 Nutrition Diagnosis Increased nutrient needs ( specify in comment below) Comments: protein Etiology wound healing As Evidenced by Signs and Symptoms stage II pressure injuries x3: sacral, rt and lt hips Diagnosis Progress(for reassessment Continues documentation) #1 Nutrition Diagnosis Malnutrition Comments: weight loss of -11.8% in hospital Etiology advanced age, chronic disease As Evidenced by Signs and Symptoms muscle and fat wasting Diagnosis Progress(for reassessment Continues documentation) Is patient on ventilator? No Is Patient Ambulatory and/or Out of Bed No REE-([facility]-confined to bed) 984.636 Kcal/Kg value to use for calculation 30 Approximate Energy Requirements Using 1200 kcal/Kg Calculation Used for Recommendations Kcal/kg Additional Notes Protein: 1-1.5g/kg @ 40k- 60g Fluids: 1 ml/kcal or per MD Nutrition Intervention Change Diet Order: continue as tolerated for pleasure Nutrition Support: Glucerna 1.2 at goal rate of 45ml/hr Flush 100 ml q4h or per MD Kcal 1,296 Protein (gm) 65 Fluid (mL) 864 Add Supplement/Snack (indicate name/kcal Michael BID /protein ) Provides kCal: 190 Provides Protein (gm) 5 Goal #1 TF formula tolerated at goal rate of 45ml/hr Goal #2 weight to maintain or gain +3% current weight during LOS Goal #3 tolerate nutritional supplement MICHAEL via PEG BID for LOS Follow-Up By: 02/06/21 Additional Comments New PEG, TF order placed to start 02/04, tolerating TF
[2021-02-06] MEDS: SODIUM HYPOCHLORITE, DAKIN'S 1/2 STRENGTH (0.25%) 473 ML TOPICAL SOLN TP SCH ×2 (11:37→22:34)
[2021-02-06] MEDS: LANSOPRAZOLE 30 MG SOLUTAB FEEDTUBE SCH (12:03)
[2021-02-06] MEDS: CHOLECALCIFEROL (VIT D3) 1000 UNIT (25 mcg) TAB PO SCH (12:03)
[2021-02-06] MEDS: ASCORBIC ACID 500 MG TAB PO SCH ×2 (12:03→22:34)
[2021-02-06] MEDS: DEXTROSE 5% IN WATER 1,000 ML IV SCH (15:32)
[2021-02-06 22:30] VITALS: BP 119/96
--- NOTE | 2021-02-07 01:45 | Death Note ---
Note Date of : 02/07/21 Time of : 00:35 Time Pronounced: 00:35 - Preliminary Cause of (problem) (1) Cardiac asystole Preliminary cause of Patient admitted from [facility] with complaints of failure to thrive. Upon admission patient was found to have bilateral pneumonia, sepsis, metabolic acidosis, suspected COVID-19 viral infection, elevated liver enzymes with high suspicion for malignancy. Called to the bedside by nurse after patient was found to be unresponsive. Upon assessment no heart sounds noted, no spontaneous breathing, no response to tactile stimulation, pupils are fixed and dilated. Time of 0035. (2) Sepsis Qualifiers: Sepsis acute organ dysfunction status: with acute organ dysfunction Acute respiratory failure type: with hypoxia Severe sepsis shock status: unspecified Preliminary cause of (3) Suspected 2019 novel coronavirus infection Preliminary cause of (4) Bilateral pneumonia Preliminary cause of
--- NOTE | 2021-02-07 10:25 | Death Summary ---
Summary - Providers Consults: 01/27/21 03:19 Consult to Wound/ET Nurse [CONS] Routine Reason For Exam: wound eval 01/27/21 09:16 Consult to Physician [CONS] Routine Comment: Consulting Provider: DAVE ELAINE Physician Instructions: Reason For Exam: sepsis 01/27/21 09:53 Speech Therapy Evaluation and Treat [CONS] Routine Reason For Exam: swallow eval 01/27/21 09:55 Consult to Dietitian/Nutrition [CONS] Routine Physician Instructions: Reason For Exam: Reason for Consult: Write/Manage Tube Feeding 01/31/21 07:20 Consult to Physician [CONS] Routine Comment: Consulting Provider: PRISCILLA PARIS Physician Instructions: Reason For Exam: wound eval for debridement 01/31/21 15:50 Consult to Physician [CONS] Routine Comment: Consulting Provider: MARY HANSON Physician Instructions: Reason For Exam: transaminitis > 1000, PEG tube placement Attending: MARIYA VALDES - summary Date of admission: 01/26/21 18:10 Date of : 02/07/21 Reason for admission: Decreased responsiveness. 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 Patient has diminished cognition at the time my evaluation and is unable to provide history. Patient history provided by EMS staff, ED staff, alf facility staff, as well as patient daughter who was made available by telephone for interview. As per daughter she was notified by alf facility staff today and informed that the patient "was getting sick". The patient has experienced decreased responsiveness as well as increased weakness over the past 1 week with acute worsening of symptoms over the past 1 day. EMS was notified and upon arrival the patient was found to be in distress and was subsequently transported to [facility] for further care and evaluation of the aforementioned symptoms. The patient was seen and evaluated in the emergency department. All lab and imaging studies reviewed. Patient was found to have a pulse oximetry of 85% on room air which is consistent with acute hypoxemic respiratory failure. A chest x-ray revealed bilateral pneumonia. The patient was also found to have sepsis, acute kidney injury, as well as severe hypernatremia. The patient was admitted to medical floor and initiated on sepsis protocol, pneumonia protocol, as well as coronavirus protocol. No further history is obtainable. The patient has diminished cognition but has a positive gag reflex and is able to protect her airway without difficulty the time my evaluation. Advanced care planning conducted in ED. Hospital course to date 01/27: Patient seen and examined, very lethargic, and appears deconditioned and dry. - ID and Nephrology consult - Gentle hydration while awaiting COVID testing. - Monitor Platelet level - Follow cultures. - Q2H turns 01/28: Patient seen and examined unable to get Dobbhoff yesterday the nurse yesterday said that he was able to tolerate pured diet as recommended by speech therapist. Although today's nurse reports that the patient is not tolerating so we will try the Dobbhoff again. We will continue to reevaluate and on my examination he actually opens her mouth and responds to some questions recommended we try assistance with feeding again today. Renal function showing some improvement ID input appreciated continue antibiotics at this time. Leukocytosis still worse we will recheck. Assessment: 85-year-old female with history of dementia, cementation, sacral decubitus ulcer, admitted on 01/26/2021 secondary to a week history of decreased responsiveness and generalized weakness associated with shortness of breath 01/29/21 Patient is seen and examined. Patient is awake alert but demented. Patient pulled out the Dobbhoff tube. Will reinsert the Dobbhoff tube today and if poss ible start feeding. If needed will put the patient on restraint. Continue current management. Nutritional evaluation. Recheck CBC CMP in the morning. Nephrology follow-up. Assessment: 85-year-old female with history of dementia, cementation, sacral decubitus ulcer, admitted on 01/26/2021 secondary to a week history of decreased responsiveness and generalized weakness associated with shortness of breath: 01/30: Patient seen and examined, she is staill very leathrgic, tube feed is ongoing, unfortunately worsening metabolic acidosis. I spoke to the patients daughter and discussed overall medical condition, while they maintained DNR, they do not want comfort measure or hospice. I also advised that patient is having liver failure. Will further evaluate the liver Nephrology input appreciated. Will await Wound care evaluation and may need a surgical eval of the multiple wounds for possible debridement. Aspiration precautions Poor prognosis 01/31: Continues to be lethargic . Very frail . Surgery consulted for wound care evaluation. Prognosis remains poor. Bedside excision completed by surgery. ID consultation obtained. 02/01/2021: Patient continues to be lethargic. Blood sugar is noted to be low with reading of 20. Ordered glucagon 1 mg IV x1. Patient had not been receiving tube feeds due to her pulling Dobbhoff. Speech therapy recommends PEG tube placement. GI consulted for elevated transaminases and PEG tube placement. Will follow recs. 02/02/2021: ID and GI recs noted. GI will plan for PEG tube tomorrow. Continuing zosyn. Poor prognosis. 02/03/2021: Awaiting PEG tube placement. Plan for d/c back to [facility] afterwards. COVID test is ordered. Prognosis remains very poor. 02/04/2021: S/p PEG. tolerating well. Awaiting covid test result. Patient was treated with prolongued course of antibiotics throughout her hospital stay and had bedside debrdiement for pressure ulcer wounds by general surgery. Liver evaluation was completed by GI/hepatology who stated etiology was likely due to sepsis/hypotension. Liver enzymes have since normalized. Prognosis is very poor given patient malnourished state, multiple comorbidities and high suspicion for malignancy given lytic lesions on bone. She is a DNR and a candidate for hospice however per the family request they would like her to return to [facility]. can be discharge back to [facility]. 02/07/2021:Patient admitted from [facility] with complaints of failure to thrive. Upon admission patient was found to have bilateral pneumonia, sepsis, metabolic acidosis, suspected COVID-19 viral infection (was found to be negative x 2), elevated liver enzymes with high suspicion for malignancy. Called to the bedside by nurse after patient was found to be unresponsive. Upon assessment no heart sounds noted, no spontaneous breathing, no response to tactile stimulation, pupils are fixed and dilated. Time of 0035. (2) Failure to thrive in adult Note: Final diagnosis: (3) Severe malnutrition Note: Final diagnosis: (4) Abnormal liver enzymes Note: Final diagnosis: (5) Acute kidney injury (SUDHIR) with acute tubular necrosis (ATN) Note: Final diagnosis: (6) Bilateral pneumonia Note: Final diagnosis: (7) Lytic bone lesions on xray Note: Final diagnosis: (8) Neurogenic dysphagia Note: Final diagnosis: (9) Sepsis Qualifiers: Sepsis acute organ dysfunction status: with acute organ dysfunction Acute r espiratory failure type: with hypoxia Severe sepsis shock status: unspecified Note: Final diagnosis:
== END 2021-02-07 08:57 | DRG 853 ==
LOC: ED 15:16 → 3A 18:10
PROVIDERS: ADMIT Internal Medicine; ATTEND Hospitalist
PROC: 4A033R1 Measurement of Arterial Saturation, Peripheral, Percutaneous Approach (ICD-10-PCS; 2021-01-30)
PROC: 0QB60ZZ Excision of Right Upper Femur, Open Approach (ICD-10-PCS; principal; 2021-01-31)
PROC: 0QBN0ZZ Excision of Right Metatarsal, Open Approach (ICD-10-PCS; 2021-01-31)
PROC: 0DH63UZ Insertion of Feeding Device into Stomach, Percutaneous Approach (ICD-10-PCS; 2021-02-03)
DX: A41.9 Sepsis, unspecified organism (principal); J18.9 Pneumonia, unspecified organism; E43 Unspecified severe protein-calorie malnutrition; N17.0 Acute kidney failure with tubular necrosis; E87.0 Hyperosmolality and hypernatremia; C90.00 Multiple myeloma not having achieved remission; Z68.1 Body mass index [BMI] 19.9 or less, adult; F01.50 Vascular dementia, unspecified severity, without behavioral disturbance, psychotic disturbance, mood disturbance, and anxiety; Z20.822 Contact with and (suspected) exposure to COVID-19; I67.2 Cerebral atherosclerosis; E86.9 Volume depletion, unspecified; L89.159 Pressure ulcer of sacral region, unspecified stage; R53.81 Other malaise; Z82.49 Family history of ischemic heart disease and other diseases of the circulatory system; E87.5 Hyperkalemia; E86.0 Dehydration; D64.9 Anemia, unspecified; Z66 Do not resuscitate; R13.19 Other dysphagia; D69.6 Thrombocytopenia, unspecified; R62.7 Adult failure to thrive
CPT/HCPCS: 36415; 36600; 71045; 74018; 74176; 76705; 80048; 80053; 80074; 80076; 82140; 82803; 82947; 82962; 85007; 85025; 85027; 85610; 86850; 86900; 86901; 87040; 87116; 94760; G0378; J0456; J0690; J0696; J1610; J2250; J2370; J2405; J2543; J2704; J2920; J3430; J3480; J3490; J7030; J7040; J7042; J7070; U0003